=== PATIENT | female | born 1965 | race Caucasian/White ===

== ENCOUNTER 2020-01-11 13:40 | Outpatient (REF) | payer MEDICARE, MEDICAID, SELFPAY ==
[2020-01-11 14:02] LABS: MANUAL DIFF FLAG NO
[2020-01-11 14:09] LABS: Basophils Percent Auto 0.6 % (0-2); Eosinophils Absolute Auto 0.1 X10*3/uL (0.0-0.4); Eosinophils Percent Auto 0.9 % (0-4); Hematocrit 41.1 % (37-47); Hemoglobin 13.6 g/dl (12.0-16.0); Imm Gran Abs Auto 0.03 X10*3/uL (0.00-0.03); Imm Gran Pct Auto 0.4 % (0.0-0.4); Lymphocytes Absolute Auto 2.3 X10*3/uL (1.2-4.9); Lymphocytes Percent Auto 33.8 % (20-40); Mean Corpuscular HGB Conc 33.1 g/dl (31.0-35.0); Mean Corpuscular Volume 90.5 fL (80-98); Mean Platelet Volume 10.4 fL (9.4-12.3); Monocytes Absolute Auto 0.5 X10*3/uL (0.1-1.2); Monocytes Percent Auto 6.7 % (2-11); Neutrophils Absolute Auto 3.9 X10*3/uL (2.0-8.3); Neutrophils Percent Auto 57.6 % (45-73); Platelet Count 167 X10*3/uL (160-400); Red Blood Count 4.54 X10*6/uL (4.20-5.50); Red Cell Distribution Width 11.9 % (11.0-16.0); White Blood Count 6.8 X10*3/uL (4.8-10.8)
[2020-01-11 14:43] LABS: Alanine Aminotransferase 10 U/L (0-31); Albumin Level 4.3 g/dL (3.5-5.0); Alkaline Phosphatase 74 U/L (39-117); Anion Gap 11 (12-20); Aspartate Amino Transferase 13 U/L (5-31); Bilirubin Total 0.3 mg/dL (0.0-1.0); Blood Urea Nitrogen 12 mg/dL (9-16); Calcium 9.7 mg/dL (8.4-10.2); Carbon Dioxide 31 mmol/L (22-29); Chloride 102 mmol/L (96-108); Estimated Glomerular Filt Rate 58; Glucose Random 95 mg/dL (60-115); Potassium 4.9 mmol/l (3.3-5.1); Sodium 139 mmol/L (135-145); Total Protein 6.8 g/dL (6.5-8.0)
== END 2020-01-11 13:41 | disposition home or self-care (01) ==
LOC: HO.LAB 13:40
PROVIDERS: PCP Internal Medicine; Referring Provider Internal Medicine Hypertension Specialist; Visit Provider Internal Medicine Medical Oncology
DX: D69.6 Thrombocytopenia, unspecified (principal); E78.2 Mixed hyperlipidemia; E87.0 Hyperosmolality and hypernatremia; N17.9 Acute kidney failure, unspecified
CPT/HCPCS: 36415; 80053; 85025

== ENCOUNTER 2020-06-15 09:03 | Outpatient (REF) | payer MEDICARE, MEDICAID, SELFPAY ==
[2020-06-15 10:23] LABS: MANUAL DIFF FLAG NO
[2020-06-15 10:30] LABS: Basophils Percent Auto 0.6 % (0-2); Eosinophils Percent Auto 0.7 % (0-4); Hematocrit 42.9 % (37-47); Hemoglobin 13.8 g/dl (12.0-16.0); Imm Gran Abs Auto 0.01 X10*3/uL (0.00-0.03); Imm Gran Pct Auto 0.2 % (0.0-0.4); Lymphocytes Absolute Auto 2.3 X10*3/uL (1.2-4.9); Lymphocytes Percent Auto 42.6 % (20-40); Mean Corpuscular HGB Conc 32.2 g/dl (31.0-35.0); Mean Corpuscular Hemoglobin 29.1 pg (27.0-33.0); Mean Corpuscular Volume 90.5 fL (80-98); Mean Platelet Volume 10.4 fL (9.4-12.3); Monocytes Absolute Auto 0.5 X10*3/uL (0.1-1.2); Monocytes Percent Auto 8.5 % (2-11); Neutrophils Absolute Auto 2.6 X10*3/uL (2.0-8.3); Neutrophils Percent Auto 47.4 % (45-73); Platelet Count 164 X10*3/uL (160-400); Red Blood Count 4.74 X10*6/uL (4.20-5.50); White Blood Count 5.4 X10*3/uL (4.8-10.8)
[2020-06-15 10:56] LABS: Alanine Aminotransferase 17 U/L (0-31); Albumin Level 4.4 g/dL (3.5-5.0); Alkaline Phosphatase 76 U/L (39-117); Anion Gap 12 (12-20); Aspartate Amino Transferase 16 U/L (5-31); Bilirubin Total 0.3 mg/dL (0.0-1.0); Blood Urea Nitrogen 18 mg/dL (9-16); Calcium 9.6 mg/dL (8.4-10.2); Carbon Dioxide 32 mmol/L (22-29); Chloride 104 mmol/L (96-108); Cholesterol 203 mg/dL; Estimated Glomerular Filt Rate 52; Glucose Fasting 96 mg/dL (60-99); HDL Cholesterol 59 mg/dL; LDL Cholesterol Calculated 105 mg/dl; Potassium 4.3 mmol/L (3.3-5.1); Sodium 144 mmol/L (135-145); Total Protein 6.8 g/dL (6.5-8.0); Triglycerides 196 mg/dL
[2020-06-15 11:18] LABS: Free T4 (Free Thyroxine) 0.82 ng/dL (0.71-1.85); Thyroid Stimulating Hormone 0.45 uIU/mL (0.32-4.0); Vitamin D 25-OH Total 39.5 ng/mL (>30)
== END 2020-06-15 09:04 | disposition home or self-care (01) ==
LOC: HO.LAB 09:03
PROVIDERS: Absent Provider Internal Medicine Hypertension Specialist; PCP Internal Medicine; Visit Provider Internal Medicine Medical Oncology
DX: D69.6 Thrombocytopenia, unspecified (principal); E78.2 Mixed hyperlipidemia; E87.0 Hyperosmolality and hypernatremia
CPT/HCPCS: 36415; 80053; 80061; 82306; 84439; 84443; 85025

== ENCOUNTER 2020-12-24 09:05 | Outpatient (REF) | payer MEDICARE, MEDICAID, SELFPAY ==
[2020-12-24 10:37] LABS: Alanine Aminotransferase 11 U/L (0-31); Albumin Level 4.3 g/dL (3.5-5.0); Alkaline Phosphatase 67 U/L (39-117); Anion Gap 13 (12-20); Aspartate Amino Transferase 13 U/L (5-31); Bilirubin Total 0.3 mg/dL (0.0-1.0); Blood Urea Nitrogen 12 mg/dL (9-16); Calcium 9.4 mg/dL (8.4-10.2); Carbon Dioxide 25 mmol/L (22-29); Chloride 105 mmol/L (96-108); Cholesterol 197 mg/dL; Estimated Glomerular Filt Rate 56; Glucose Fasting 107 mg/dL (60-99); HDL Cholesterol 58 mg/dL; LDL Cholesterol Calculated 105 mg/dl; Potassium 4.7 mmol/L (3.3-5.1); Sodium 138 mmol/L (135-145); Total Protein 6.7 g/dL (6.5-8.0); Triglycerides 173 mg/dL
[2020-12-24 10:39] LABS: Free T4 (Free Thyroxine) 0.86 ng/dL (0.71-1.85); Thyroid Stimulating Hormone 0.81 uIU/mL (0.32-4.0)
== END 2020-12-24 09:06 | disposition home or self-care (01) ==
LOC: HO.LAB 09:05
PROVIDERS: PCP Internal Medicine; Visit Provider Internal Medicine Medical Oncology
DX: D69.6 Thrombocytopenia, unspecified (principal); E78.2 Mixed hyperlipidemia; E66.09 Other obesity due to excess calories
CPT/HCPCS: 36415; 80053; 80061; 84439; 84443; 85025

== ENCOUNTER 2021-02-24 07:37 | Outpatient (REF) | payer MEDICARE, MEDICAID, SELFPAY ==
--- NOTE | ~2021-02-24 | XR_ITS ---
EXAMINATION: PELVIS AND RIGHT HIP X-RAY CLINICAL INFORMATION: Pain in right hip COMPARISON: None TECHNIQUE: One view of the pelvis and 2 views of the right hip FINDINGS: There is bilateral hip arthritis with joint space narrowing and osteophyte formation, right greater than left. No fracture, dislocation or bone lesion is seen. Bones of the pelvis are unremarkable. There are degenerative changes of visualized lower lumbar spine. Soft tissues are unremarkable. XR/XR hip RT min 2V IMPRESSION: Bilateral hip arthritis, right greater than left.
--- NOTE | ~2021-02-24 | XR_ITS ---
EXAMINATION: PELVIS AND RIGHT HIP X-RAY CLINICAL INFORMATION: Pain in right hip COMPARISON: None TECHNIQUE: One view of the pelvis and 2 views of the right hip FINDINGS: There is bilateral hip arthritis with joint space narrowing and osteophyte formation, right greater than left. No fracture, dislocation or bone lesion is seen. Bones of the pelvis are unremarkable. There are degenerative changes of visualized lower lumbar spine. Soft tissues are unremarkable. XR/XR pelvis 1-2V IMPRESSION: Bilateral hip arthritis, right greater than left.
== END 2021-02-24 07:38 | disposition home or self-care (01) ==
LOC: HO.HOSX 07:37
PROVIDERS: Visit Provider Physician Assistant
DX: M70.61 Trochanteric bursitis, right hip (principal); M53.3 Sacrococcygeal disorders, not elsewhere classified
CPT/HCPCS: 20610; 72170; 73502; 99202; J1040

== ENCOUNTER 2021-05-23 07:55 | Outpatient (REF) | payer MEDICARE, MEDICAID, SELFPAY ==
[2021-05-23 08:29] LABS: MANUAL DIFF FLAG NO
[2021-05-23 08:58] LABS: Basophils Percent Auto 0.6 % (0-2); Eosinophils Absolute Auto 0.1 X10*3/uL (0.0-0.4); Eosinophils Percent Auto 1.6 % (0-4); Hematocrit 39.8 % (37.0-47.0); Hemoglobin 12.9 g/dl (12.0-16.0); Imm Gran Abs Auto 0.01 X10*3/uL (0.00-0.03); Imm Gran Pct Auto 0.2 % (0.0-0.4); Lymphocytes Absolute Auto 1.8 X10*3/uL (1.2-4.9); Mean Corpuscular HGB Conc 32.4 g/dl (31.0-35.0); Mean Corpuscular Hemoglobin 28.9 pg (27.0-33.0); Mean Corpuscular Volume 89.2 fL (80.0-98.0); Mean Platelet Volume 9.9 fL (9.4-12.3); Monocytes Absolute Auto 0.5 X10*3/uL (0.1-1.2); Monocytes Percent Auto 9.3 % (2-11); Neutrophils Absolute Auto 2.8 x10*3/uL (2.0-8.3); Neutrophils Percent Auto 54.3 % (45-73); Platelet Count 174 X10*3/uL (160-400); Red Blood Count 4.46 X10*6/uL (4.20-5.50); Red Cell Distribution Width 13.2 % (11.0-16.0); White Blood Count 5.1 X10*3/uL (4.8-10.8)
[2021-05-23 09:35] LABS: Alanine Aminotransferase 13 U/L (0-31); Albumin Level 4.1 g/dL (3.5-5.0); Alkaline Phosphatase 71 U/L (39-117); Anion Gap 12 (12-20); Aspartate Amino Transferase 14 U/L (5-31); Bilirubin Total 0.3 mg/dL (0.0-1.0); Blood Urea Nitrogen 12 mg/dL (9-16); Calcium 9.7 mg/dL (8.4-10.2); Carbon Dioxide 31 mmol/L (22-29); Chloride 103 mmol/L (96-108); Cholesterol 197 mg/dL; Estimated Glomerular Filt Rate 54; Glucose Fasting 104 mg/dL (60-99); HDL Cholesterol 53 mg/dL; LDL Cholesterol Calculated 90 mg/dl; Potassium 4.7 mmol/L (3.3-5.1); Sodium 141 mmol/L (135-145); Total Protein 6.7 g/dL (6.5-8.0); Triglycerides 271 mg/dL
[2021-05-23 09:36] LABS: Valproate 71.5 mcg/mL (50.0-100.0)
[2021-05-23 09:58] LABS: Vitamin D 25-OH Total 26.1 ng/mL (>30)
[2021-05-23 09:59] LABS: Free T4 (Free Thyroxine) 0.77 ng/dL (0.71-1.85); Thyroid Stimulating Hormone 1.28 uIU/mL (0.32-4.0)
== END 2021-05-23 07:56 | disposition home or self-care (01) ==
LOC: HO.LAB 07:55
PROVIDERS: Absent Provider Internal Medicine Hypertension Specialist; PCP Internal Medicine; Visit Provider Internal Medicine
DX: E03.9 Hypothyroidism, unspecified (principal); G40.909 Epilepsy, unspecified, not intractable, without status epilepticus; E55.9 Vitamin D deficiency, unspecified
CPT/HCPCS: 36415; 80053; 80061; 80164; 82306; 84439; 84443; 85025

== ENCOUNTER 2021-11-30 08:39 | Outpatient (REF) | payer MEDICARE, MEDICAID, SELFPAY ==
[2021-11-30 08:52] LABS: MANUAL DIFF FLAG NO
[2021-11-30 09:34] LABS: Basophils Percent Auto 0.6 % (0-2); Eosinophils Absolute Auto 0.1 X10*3/uL (0.0-0.4); Eosinophils Percent Auto 2.3 % (0-4); Hematocrit 40.7 % (37.0-47.0); Hemoglobin 13.5 g/dl (12.0-16.0); Imm Gran Abs Auto 0.01 X10*3/uL (0.00-0.03); Imm Gran Pct Auto 0.2 % (0.0-0.4); Lymphocytes Absolute Auto 2.3 X10*3/uL (1.2-4.9); Lymphocytes Percent Auto 44.7 % (20-40); Mean Corpuscular HGB Conc 33.2 g/dl (31.0-35.0); Mean Corpuscular Hemoglobin 30.3 pg (27.0-33.0); Mean Corpuscular Volume 91.5 fL (80.0-98.0); Mean Platelet Volume 10.3 fL (9.4-12.3); Monocytes Absolute Auto 0.5 X10*3/uL (0.1-1.2); Monocytes Percent Auto 8.6 % (2-11); Neutrophils Absolute Auto 2.3 x10*3/uL (2.0-8.3); Neutrophils Percent Auto 43.6 % (45-73); Platelet Count 166 X10*3/uL (160-400); Red Blood Count 4.45 X10*6/uL (4.20-5.50); Red Cell Distribution Width 12.3 % (11.0-16.0); White Blood Count 5.2 X10*3/uL (4.8-10.8)
[2021-11-30 10:02] LABS: Alanine Aminotransferase 12 U/L (0-31); Albumin Level 4.2 g/dL (3.5-5.0); Alkaline Phosphatase 65 U/L (39-117); Anion Gap 15 (12-20); Aspartate Amino Transferase 14 U/L (5-31); Bilirubin Total 0.4 mg/dL (0.0-1.0); Blood Urea Nitrogen 18 mg/dL (9-16); Calcium 9.3 mg/dL (8.4-10.2); Carbon Dioxide 29 mmol/L (22-29); Chloride 106 mmol/L (96-108); Cholesterol 221 mg/dL; Estimated Glomerular Filt Rate 49; Glucose Fasting 101 mg/dL (60-99); HDL Cholesterol 50 mg/dL; LDL Cholesterol Calculated 106 mg/dl; Potassium 4.4 mmol/L (3.3-5.1); Sodium 146 mmol/L (135-145); Total Protein 6.8 g/dL (6.5-8.0); Triglycerides 327 mg/dL
[2021-11-30 10:25] LABS: Free T4 (Free Thyroxine) 0.83 ng/dL (0.71-1.85); Thyroid Stimulating Hormone 1.32 uIU/mL (0.32-4.0)
[2021-11-30 10:33] LABS: Valproate 58.9 mcg/mL (50.0-100.0)
== END 2021-11-30 08:40 | disposition home or self-care (01) ==
LOC: HO.LAB 08:39
PROVIDERS: Absent Provider Registered Nurse; PCP Internal Medicine; Visit Provider Internal Medicine
DX: E03.9 Hypothyroidism, unspecified (principal); G40.909 Epilepsy, unspecified, not intractable, without status epilepticus; E78.5 Hyperlipidemia, unspecified
CPT/HCPCS: 36415; 80053; 80061; 80164; 84439; 84443; 85025

== ENCOUNTER 2022-01-06 08:51 | Outpatient (REF) | payer MEDICARE, SELFPAY ==
[2022-01-06 10:46] LABS: Cholesterol 205 mg/dL; HDL Cholesterol 46 mg/dL; LDL Cholesterol Calculated 93 mg/dl; Triglycerides 332 mg/dL
== END 2022-01-06 08:52 | disposition home or self-care (01) ==
LOC: HO.LAB 08:51
PROVIDERS: PCP Internal Medicine; Visit Provider Internal Medicine
DX: E78.00 Pure hypercholesterolemia, unspecified (principal)
CPT/HCPCS: 36415; 80061

== ENCOUNTER 2022-03-24 09:24 | Outpatient (REF) | payer MEDICARE, SELFPAY ==
[2022-03-24 10:37] LABS: Estimated Average Glucose 111 mg/dL; Hemoglobin A1c % 5.5 %
[2022-03-24 10:40] LABS: Cholesterol 203 mg/dL; HDL Cholesterol 55 mg/dL; LDL Cholesterol Calculated 103 mg/dl; Triglycerides 229 mg/dL
== END 2022-03-24 09:25 | disposition home or self-care (01) ==
LOC: HO.LAB 09:24
PROVIDERS: PCP Internal Medicine; Visit Provider Registered Nurse
DX: F06.34 Mood disorder due to known physiological condition with mixed features (principal); F31.76 Bipolar disorder, in full remission, most recent episode depressed; Z79.899 Other long term (current) drug therapy
CPT/HCPCS: 36415; 80061; 83036

== ENCOUNTER 2022-11-10 09:45 | Outpatient (REF) | payer MEDICARE, SELFPAY ==
[2022-11-10 10:07] LABS: MANUAL DIFF FLAG NO
[2022-11-10 10:52] LABS: Basophils Absolute Auto 0.1 X10*3/uL (0.0-0.2); Basophils Percent Auto 0.9 % (0-2); Eosinophils Absolute Auto 0.1 X10*3/uL (0.0-0.4); Eosinophils Percent Auto 1.4 % (0-4); Hematocrit 42.3 % (37.0-47.0); Hemoglobin 13.6 g/dl (12.0-16.0); Imm Gran Abs Auto 0.03 X10*3/uL (0.00-0.03); Imm Gran Pct Auto 0.5 % (0.0-0.4); Lymphocytes Absolute Auto 2.1 X10*3/uL (1.2-4.9); Lymphocytes Percent Auto 37.6 % (20-40); Mean Corpuscular HGB Conc 32.2 g/dl (31.0-35.0); Mean Corpuscular Hemoglobin 29.2 pg (27.0-33.0); Mean Platelet Volume 10.4 fL (9.4-12.3); Monocytes Absolute Auto 0.5 X10*3/uL (0.1-1.2); Monocytes Percent Auto 8.4 % (2-11); Neutrophils Absolute Auto 2.9 x10*3/uL (2.0-8.3); Neutrophils Percent Auto 51.2 % (45-73); Platelet Count 236 X10*3/uL (160-400); Red Blood Count 4.65 X10*6/uL (4.20-5.50); Red Cell Distribution Width 12.2 % (11.0-16.0); White Blood Count 5.6 X10*3/uL (4.8-10.8)
[2022-11-10 11:29] LABS: Valproate 56.1 mcg/mL (50.0-100.0)
[2022-11-10 12:05] LABS: Alanine Aminotransferase 11 U/L (0-31); Albumin Level 4.3 g/dL (3.5-5.0); Alkaline Phosphatase 74 U/L (39-117); Anion Gap 17 (12-20); Aspartate Amino Transferase 13 U/L (5-31); Bilirubin Total 0.3 mg/dL (0.0-1.0); Blood Urea Nitrogen 15 mg/dL (9-16); Calcium 9.7 mg/dL (8.4-10.2); Carbon Dioxide 23 mmol/L (22-29); Chloride 106 mmol/L (96-108); Cholesterol 204 mg/dL; Estimated Glomerular Filt Rate 53; Glucose Fasting 99 mg/dL (60-99); HDL Cholesterol 50 mg/dL; LDL Cholesterol Calculated 108 mg/dl; Potassium 4.5 mmol/L (3.3-5.1); Sodium 141 mmol/L (135-145); Total Protein 7.3 g/dL (6.5-8.0); Triglycerides 231 mg/dL
[2022-11-10 12:08] LABS: Free T4 (Free Thyroxine) 0.72 ng/dL (0.71-1.85); Thyroid Stimulating Hormone 1.05 uIU/mL (0.32-4.0)
== END 2022-11-10 09:46 | disposition home or self-care (01) ==
LOC: HO.LAB 09:45
PROVIDERS: PCP Internal Medicine; Visit Provider Internal Medicine
DX: E78.00 Pure hypercholesterolemia, unspecified (principal); E03.9 Hypothyroidism, unspecified
CPT/HCPCS: 36415; 80053; 80061; 80164; 84439; 84443; 85025

== ENCOUNTER 2023-02-21 10:55 | Outpatient (REF) | payer MEDICARE, SELFPAY ==
[2023-02-21 11:41] LABS: Influenza A PCR NEGATIVE (Negative); Influenza B PCR NEGATIVE (Negative); Resp Syncy Virus RNA Qual PCR POSITIVE (Negative); SARS COV2 PCR INHOUSE NEGATIVE (Negative)
== END 2023-02-21 10:56 | disposition home or self-care (01) ==
LOC: HO.LNP 10:55
PROVIDERS: Visit Provider Internal Medicine
DX: Z11.52 Encounter for screening for COVID-19 (principal); Z20.822 Contact with and (suspected) exposure to COVID-19; J02.9 Acute pharyngitis, unspecified
CPT/HCPCS: 0241U

== ENCOUNTER 2023-04-05 07:16 | Day surgery (SDC) | payer MEDICARE, SELFPAY ==
[2023-04-03 10:15] VITALS: BMI 35.7
[2023-04-03 10:32] VITALS: BMI 35.7
--- NOTE | 2023-04-04 11:10 | P.CONAN_ITS ---
Documented by User: Doris Wright NP 04/04/23 11:11 HPI - Anesthesia Eval Consult details Narrative: 57yo F for Colonoscopy PMFSH Active Problems Active Problems: All Active Problems (Updated 04/03/23 @ 10:32 by Susy Maddox, LAM) Sacroiliac joint pain (Acute) Trochanteric bursitis of right hip (Acute) Past Medical History Medical History (Updated 04/03/23 @ 10:32 by Susy Maddox, LAM) Hyponatremia Seizures Bipolar disorder Hypothyroid Elevated cholesterol Cerebral aneurysm Surgical History Surgical History (Updated 04/05/23 @ 08:01 by Ayanna Kasper, LAM) Hx of tracheostomy Hx of brain surgery Hx of tubal ligation History of left mastoidectomy H/O colonoscopy Social History Social History (Updated 04/03/23 @ 10:15 by Susy Maddox RN) Household Members Other:: lives with the grafter [employer] [facility] caregiver Are you a primary health and social care teacher to a significant other at home: No Do you presently have visiting nurse or other home services: Yes ([employer] [facility]) Patient Tobacco Use Status: Former Tobacco user Tobacco use type: Cigarette Advance Directives Date on File: 11/06/11 Meds Allergies Allergy/AdvReac Type Severity Reaction Status Date / Time meropenem [From MERREM] Allergy Unknown UNKNOWN Verified 02/24/21 08:44 Penicillins [PENICILLINS] Allergy Unknown UNKNOWN Verified 02/24/21 08:44 Sulfa (Sulfonamide Allergy Unknown UNKNOWN Verified 02/24/21 08:44 Antibiotics) [SULFA(SULFONAMIDE ANTIBIOTICS)] SHELLFISH Allergy Unknown UNKNOWN Uncoded 12/24/19 18:06 Home Medications Medication Instructions Recorded Confirmed Last Taken Type divalproex 250 mg tablet,delayed 250 mg PO TID 04/03/23 04/03/23 04/05/23 History release levothyroxine 50 mcg tablet 50 mcg PO DAILY 04/03/23 04/03/23 04/05/23 History lovastatin 20 mg tablet 20 mg PO DAILY 04/03/23 04/03/23 Unknown History quetiapine 100 mg tablet 100 mg PO QAM 04/03/23 04/03/23 04/05/23 History quetiapine 400 mg tablet 400 mg PO BEDTIME 04/03/23 04/03/23 Unknown History Exam Height,Weight and Vital Signs: Height 5 ft 1.5 in Weight 87.09 kg Pertinent Lab Results Pertinent Lab Results: Laboratory Tests 11/10/22 10:06 WBC 5.6 Hgb 13.6 Hct 42.3 Plt Count 236 D Sodium 141 Potassium 4.5 Chloride 106 Carbon Dioxide 23 BUN 15 Creatinine 1.07 Assessment and Plan Assessment Anesthesia Assessment: Chart Reviewed Documented by User: Ady Gallegos MD 04/05/23 08:26 PMF Past Medical History Medical History (Updated 04/03/23 @ 10:32 by Susy Maddox RN) Hyponatremia Seizures Bipolar disorder Hypothyroid Elevated cholesterol Cerebral aneurysm Family History Family history of problems with anesthesia: No Surgical History Surgical History (Updated 04/05/23 @ 08:01 by Ayanna Kasper RN) Hx of tracheostomy Hx of brain surgery Hx of tubal ligation History of left mastoidectomy H/O colonoscopy History of Problems with Anesthesia: No Social History Social History (Updated 04/03/23 @ 10:15 by Susy Maddox RN) Household Members Other:: lives with Diego [facility] caregiver Are you a primary health and social care teacher to a significant other at home: No Do you presently have visiting nurse or other [facility] services[facility] Patient Tobacco Use Status: Former Tobacco user Tobacco use type: Cigarette Advance Directives Date on File: 11/06/11 Meds Allergies Allergy/AdvReac Type Severity Reaction Status Date / Time meropenem [From MERREM] Allergy Unknown UNKNOWN Verified 02/24/21 08:44 Penicillins [PENICILLINS] Allergy Unknown UNKNOWN Verified 02/24/21 08:44 Sulfa (Sulfonamide Allergy Unknown UNKNOWN Verified 02/24/21 08:44 Antibiotics) [SULFA(SULFONAMIDE ANTIBIOTICS)] SHELLFISH Allergy Unknown UNKNOWN Uncoded 12/24/19 18:06 Home Medications Medication Instructions Recorded Confirmed Last Taken Type divalproex 250 mg tablet,delayed 250 mg PO TID 04/03/23 04/03/23 04/05/23 History release levothyroxine 50 mcg tablet 50 mcg PO DAILY 04/03/23 04/03/23 04/05/23 History lovastatin 20 mg tablet 20 mg PO DAILY 04/03/23 04/03/23 Unknown History quetiapine 100 mg tablet 100 mg PO QAM 04/03/23 04/03/23 04/05/23 History quetiapine 400 mg tablet 400 mg PO BEDTIME 04/03/23 04/03/23 Unknown History Exam Airway Mallampati Class: II TM Dist: <=3cm Neck ROM: Full Heart: ok Lungs: ok Assessment and Plan Assessment Anesthesia Assessment: Anesthesia Plan Discussed Final Anesthetic Review Family History of Problems with Anesthesia: No History of Problems with Anesthesia: No NPO: Yes ASA Class: III Final Preanesthetic Review: No Changes in Pt Med Stat, Meds/Allgs Chart Reviewed, Consent Obtained/Reviewed and Anes Risks/Benef Reviewed Patient Risk: Intermediate Procedure Risk: Low Anesthetic Plan Anesthetic Plan: MAC: and Agree w/ Assess. and Plan Disposition: Standard PACU
[2023-04-05 07:53] VITALS: BMI 35.8
[2023-04-05 07:54] VITALS: BP 129/83; PULSE 92; RESP 19; TEMP 36.8; O2SAT 97
[2023-04-05] MEDS: Lactated Ringers 1,000 ML 100 ML IVCONT (08:10)
--- NOTE | 2023-04-05 08:26 | HO.ANESPROP2 ---
[facility]LY [facility], LATER [facility] Active Problems Active Problems: All Active Problems Sacroiliac joint pain (Acute) Trochanteric bursitis of right hip (Acute) Past Medical History Medical History (Updated 04/03/23 @ 10:32 by Susy Maddox RN) Hyponatremia Seizures Bipolar disorder Hypothyroid Elevated cholesterol Cerebral aneurysm Family History Family history of problems with anesthesia: No Surgical History Surgical History (Updated 04/05/23 @ 08:01 by Ayanna Kasper RN) Hx of tracheostomy Hx of brain surgery Hx of tubal ligation History of left mastoidectomy H/O colonoscopy History of Problems with Anesthesia: No Social History Social History (Updated 04/03/23 @ 10:15 by Susy Madodx RN) Household Members Other:: lives with [facility] caregiver Are you a primary director long term care to a significant other at home: No Do you presently have visiting nurse or other home services: Yes ([facility]) Patient Tobacco Use Status: Former Tobacco user Tobacco use type: Cigarette Advance Directives Date on File: 11/06/11 Meds Allergies Allergy/AdvReac Type Severity Reaction Status Date / Time meropenem [From MERREM] Allergy Unknown UNKNOWN Verified 02/24/21 08:44 Penicillins [PENICILLINS] Allergy Unknown UNKNOWN Verified 02/24/21 08:44 Sulfa (Sulfonamide Allergy Unknown UNKNOWN Verified 02/24/21 08:44 Antibiotics) [SULFA(SULFONAMIDE ANTIBIOTICS)] SHELLFISH Allergy Unknown UNKNOWN Uncoded 12/24/19 18:06 Active Medications: Current Medications Lactated Ringer's (Lr) 1,000 mls @ 100 mls/hr IVCONT .Q10H KATELIN Last Admin: 04/05/23 08:10 Dose: 100 mls/hr Sodium Biphosphate/Sodium Phosphate (Sodium Phosphate,[place]-Dibasic 133 Ml Enema) 133 ml UT ONCE PRN PRN Reason: Poor Colonoscopy Prep Results Home Medications Medication Instructions Recorded Confirmed Last Taken Type divalproex 250 mg tablet,delayed 250 mg PO TID 04/03/23 04/03/23 04/05/23 History release levothyroxine 50 mcg tablet 50 mcg PO DAILY 04/03/23 04/03/23 04/05/23 History lovastatin 20 mg tablet 20 mg PO DAILY 04/03/23 04/03/23 Unknown History quetiapine 100 mg tablet 100 mg PO QAM 04/03/23 04/03/23 04/05/23 History quetiapine 400 mg tablet 400 mg PO BEDTIME 04/03/23 04/03/23 Unknown History Exam Height,Weight and Vital Signs: Height 5 ft 1.5 in Weight 87.453 kg Last Vital Signs Temp 98.2 F 04/05/23 07:54 Pulse 92 04/05/23 07:54 Resp 19 04/05/23 07:54 BP 129/83 04/05/23 07:54 Pulse Ox 97 04/05/23 07:54 O2 Del Method Room Air 04/05/23 07:54 Assessment and Plan Final Anesthetic Review Family History of Problems with Anesthesia: No History of Problems with Anesthesia: No
--- NOTE | 2023-04-05 09:30 | P.BOP_ITS ---
Brief Operative Note Date of Service: 04/05/23 Pre-op diagnosis: Screening Post-op diagnosis: other (Diverticulosis) Procedure: Colonoscopy to the cecum and TI Surgeon: Chico Segundo MD Anesthesia: MAC Was an Lozenge Maker Helper used for this Procedure?: No Estimated blood loss (mL): 0 Pathology: none sent Condition: stable Disposition: PACU
[2023-04-05 09:32] VITALS: BP 150/81; PULSE 82; RESP 18; TEMP 36.6; O2SAT 98
[2023-04-05 09:47] VITALS: BP 129/78; PULSE 80; RESP 18; TEMP 36.6; O2SAT 99
[2023-04-05] MEDS: Acetaminophen 325 MG TABLET 650 MG PO (09:51)
--- NOTE | 2023-04-05 10:07 | OP_ITS ---
DATE OF SERVICE: 04/05/2023 SURGEON: Chico Segundo MD INDICATIONS: The patient presents for evaluation of colorectal cancer screening and personal history of tubular adenoma of the colon. Full consent has been obtained from her for this, including risks of bleeding and perforation. PREOPERATIVE DIAGNOSIS: POSTOPERATIVE DIAGNOSIS: PROCEDURE PERFORMED: Colonoscopy to cecum and terminal ileum. ESTIMATED BLOOD LOSS: COMPLICATIONS: ANESTHESIA: Medication used, monitored anesthesia care. ASSISTANTS: SPECIMENS: PREOPERATIVE DIAGNOSES: Colorectal cancer screening and personal history of tubular adenoma of the colon. POSTOPERATIVE DIAGNOSES: Colorectal cancer screening and personal history of tubular adenoma of the colon, diverticulosis, internal hemorrhoids. DESCRIPTION OF PROCEDURE: The patient was placed in the left lateral decubitus position. The digital rectal exam revealed no abnormalities. The Olympus video pediatric colonoscope was entered into the rectum and advanced to the cecum with the assistance of abdominal wall pressure. Once in the cecum, I did identify normal-appearing cecal pouch with appendiceal orifice and a normal-appearing ileocecal valve. The terminal ileum was cannulated and appeared normal. The scope was withdrawn back in the colon. The entire cecum and ileocecal valve appeared normal. The scope was slowly withdrawn assessing all mucosal surfaces carefully. For the most part, preparation was very good, but there was some areas of liquid stool that had to be suctioned and irrigated away as best as possible. I did not visualize any sign of polyps, colitis, nor angiodysplasia. There was a mild amount of sigmoid diverticulosis. In the rectum, the scope was retroflexed visualizing internal hemorrhoids, but no other pathology. The rectal mucosa appeared normal. The scope was straightened and withdrawn from the patient. She tolerated the procedure well and was returned to the recovery area in stable condition. IMPRESSION: 1. Mild diverticulosis. 2. Internal hemorrhoids. PLAN: I would recommend a repeat colonoscopy in 5 years for further screening and surveillance. She will otherwise see me on a p.r.n. basis. This has been discussed with her location director, Angie. MD RADHA Avila/STANISLAW / [phone]
== END 2023-04-05 10:30 | disposition home or self-care (01) ==
PROVIDERS: PCP Internal Medicine; Visit Provider Internal Medicine
PROC: 0DJD8ZZ Inspection of Lower Intestinal Tract, Via Natural or Artificial Opening Endoscopic (ICD-10-PCS; CPT 45378; principal; 2023-04-05 08:30)
DX: Z12.11 Encounter for screening for malignant neoplasm of colon (principal); K57.30 Diverticulosis of large intestine without perforation or abscess without bleeding; K64.8 Other hemorrhoids; Z86.010 Personal history of colon polyps; E78.5 Hyperlipidemia, unspecified; Z87.891 Personal history of nicotine dependence; Z79.899 Other long term (current) drug therapy
CPT/HCPCS: G0105; J2704; J3010

== ENCOUNTER 2023-04-05 07:27 | Outpatient (REF) | payer MEDICARE, SELFPAY ==
[2023-04-05 07:58] LABS: Anion Gap 14 (12-20); Blood Urea Nitrogen 13 mg/dL (9-16); Calcium 9.4 mg/dL (8.4-10.2); Carbon Dioxide 26 mmol/L (22-29); Chloride 99 mmol/L (96-108); Estimated Glomerular Filt Rate > 60; Glucose Random 113 mg/dL (60-115); Potassium 4.3 mmol/L (3.3-5.1); Sodium 135 mmol/L (135-145)
== END 2023-04-05 07:28 | disposition home or self-care (01) ==
LOC: HO.LAB 07:27
PROVIDERS: PCP Internal Medicine; Visit Provider Internal Medicine
DX: E87.1 Hypo-osmolality and hyponatremia (principal); N18.9 Chronic kidney disease, unspecified
CPT/HCPCS: 36415; 80048

== ENCOUNTER 2023-04-09 16:40 | Outpatient (REF) | payer MEDICARE, SELFPAY ==
[2023-04-09 16:49] LABS: MANUAL DIFF FLAG NO
[2023-04-09 17:06] LABS: Basophils Percent Auto 0.4 % (0-2); Eosinophils Absolute Auto 0.3 X10*3/uL (0.0-0.4); Eosinophils Percent Auto 4.2 % (0-4); Hematocrit 38.7 % (37.0-47.0); Hemoglobin 12.6 g/dl (12.0-16.0); Imm Gran Abs Auto 0.02 X10*3/uL (0.00-0.03); Imm Gran Pct Auto 0.3 % (0.0-0.4); Lymphocytes Absolute Auto 2.1 X10*3/uL (1.2-4.9); Lymphocytes Percent Auto 31.1 % (20-40); Mean Corpuscular HGB Conc 32.6 g/dl (31.0-35.0); Mean Corpuscular Hemoglobin 29.6 pg (27.0-33.0); Mean Corpuscular Volume 90.8 fL (80.0-98.0); Mean Platelet Volume 9.5 fL (9.4-12.3); Monocytes Absolute Auto 0.6 X10*3/uL (0.1-1.2); Monocytes Percent Auto 9.1 % (2-11); Neutrophils Absolute Auto 3.8 x10*3/uL (2.0-8.3); Neutrophils Percent Auto 54.9 % (45-73); Platelet Count 212 X10*3/uL (160-400); Red Blood Count 4.26 X10*6/uL (4.20-5.50); White Blood Count 6.8 X10*3/uL (4.8-10.8)
[2023-04-09 17:32] LABS: Valproate 63.5 mcg/mL (50.0-100.0)
[2023-04-09 17:37] LABS: Alanine Aminotransferase 16 U/L (0-31); Albumin Level 4.3 g/dL (3.5-5.0); Alkaline Phosphatase 71 U/L (39-117); Anion Gap 12 (12-20); Aspartate Amino Transferase 18 U/L (5-31); Bilirubin Total 0.2 mg/dL (0.0-1.0); Blood Urea Nitrogen 23 mg/dL (9-16); Calcium 9.8 mg/dL (8.4-10.2); Carbon Dioxide 31 mmol/L (22-29); Chloride 110 mmol/L (96-108); Estimated Glomerular Filt Rate 57; Glucose Random 99 mg/dL (60-115); Potassium 4.7 mmol/L (3.3-5.1); Sodium 148 mmol/L (135-145); Total Protein 7.3 g/dL (6.5-8.0)
== END 2023-04-09 16:41 | disposition home or self-care (01) ==
LOC: HO.LAB 16:40
PROVIDERS: PCP Internal Medicine; Visit Provider Internal Medicine
DX: R21 Rash and other nonspecific skin eruption (principal)
CPT/HCPCS: 36415; 80053; 80164; 85025

== ENCOUNTER 2023-05-11 07:41 | Outpatient (REF) | payer MEDICARE, SELFPAY ==
[2023-05-11 09:28] LABS: Estimated Average Glucose 114 mg/dL; Hemoglobin A1c % 5.6 % (<6.0)
[2023-05-11 10:18] LABS: Cholesterol 217 mg/dL (<200); HDL Cholesterol 51 mg/dL (>40); LDL Cholesterol Calculated 94 mg/dL (<100); Triglycerides 361 mg/dL (<150)
== END 2023-05-11 07:42 | disposition home or self-care (01) ==
LOC: HO.LAB 07:41
PROVIDERS: Visit Provider Registered Nurse
DX: F06.34 Mood disorder due to known physiological condition with mixed features (principal); F31.76 Bipolar disorder, in full remission, most recent episode depressed; Z79.899 Other long term (current) drug therapy
CPT/HCPCS: 36415; 80061; 83036

== ENCOUNTER 2023-10-30 08:22 | Outpatient (REF) | payer MEDICARE, SELFPAY ==
[2023-10-30 10:13] LABS: Anion Gap 18 (12-20); Blood Urea Nitrogen 33 mg/dL (9-16); Calcium 9.8 mg/dL (8.4-10.2); Carbon Dioxide 29 mmol/L (22-29); Chloride 128 mmol/L (96-108); Estimated Glomerular Filt Rate 33; Glucose Random 155 mg/dL (60-115); Potassium 4.2 mmol/L (3.3-5.1); Sodium 171 mmol/L (135-145)
== END 2023-10-30 08:23 | disposition home or self-care (01) ==
LOC: HO.LAB 08:22
PROVIDERS: PCP Internal Medicine; Visit Provider Internal Medicine
DX: Z13.89 Encounter for screening for other disorder (principal)
CPT/HCPCS: 36415; 80048

== ENCOUNTER 2023-10-30 10:57 | Inpatient (IN) | payer MEDICARE, SELFPAY ==
[2023-10-30 10:58] VITALS: BP 123/84; PULSE 114; RESP 16; TEMP 36.6; O2SAT 93; BMI 35.9
--- NOTE | 2023-10-30 10:58 | ED.GENADULT ---
HPI - General Adult General Chief complaint: Recheck/Abnormal Lab/Rx Stated complaint: High sodium Time Seen by Provider: 10/30/23 13:54 Source: patient and other ([employer] Specialist at the bedside) History of Present Illness ED Provider: REFUGIO signature HPI narrative: Patient was called by her PCP after routine labs were drawn this morning checking chemistry and Depakote level she was told to come in for a high sodium. This appears to have been 171 on outpatient labs. Mild JORGE was also seen. Patient reports mild fatigue but no other acute symptoms. She specifically denies headache, nausea vomiting diarrhea. She does acknowledge not drinking much water over the past few days to weeks and the tie buyer says that she is never drinking enough water. No abdominal pain no edema no skin changes Related Data Home Medications ?Medication ?Instructions ?Recorded ?Confirmed divalproex 250 mg tablet,delayed 250 mg PO DAILY 04/03/23 10/30/23 release levothyroxine 50 mcg tablet 50 mcg PO DAILY@0600 04/03/23 10/30/23 lovastatin 20 mg tablet 20 mg PO DAILY 04/03/23 10/30/23 acetaminophen 325 mg tablet 650 mg PO Q6H PRN Pain 10/30/23 10/30/23 cholecalciferol (vitamin D3) 50 50 mcg PO DAILY 10/30/23 10/30/23 mcg (2,000 unit) tablet (Vitamin D3) divalproex 250 mg tablet,delayed 500 mg PO BEDTIME 10/30/23 10/30/23 release quetiapine 200 mg tablet 200 mg PO BEDTIME 10/30/23 10/30/23 quetiapine 300 mg tablet,extended 300 mg PO BEDTIME 10/30/23 10/30/23 release 24 hr Allergies Allergy/AdvReac Type Severity Reaction Status Date / Time meropenem [From MERREM] Allergy Unknown UNKNOWN Verified 10/30/23 10:59 Penicillins [PENICILLINS] Allergy Unknown UNKNOWN Verified 10/30/23 10:59 Sulfa (Sulfonamide Allergy Unknown UNKNOWN Verified 10/30/23 10:59 Antibiotics) [SULFA(SULFONAMIDE ANTIBIOTICS)] SHELLFISH Allergy Unknown UNKNOWN Uncoded 10/30/23 10:59 PMFSH Past Medical History Medical History (Updated 10/30/23 @ 14:12 by Asa Mathur MD) Hyponatremia Seizures Bipolar disorder Hypothyroid Elevated cholesterol Cerebral aneurysm Surgical History (Updated 12/29/23 @ 08:01 by Ayanna Kasper RN) Hx of tracheostomy Hx of brain surgery Hx of tubal ligation History of left mastoidectomy H/O colonoscopy Social History Social History (Updated 04/03/23 @ 10:15 by Susy Maddox RN) Household Members: Caregiver Household Members Other:: lives with [facility] caregiver Housing: House Are you a primary care program director to a significant other at home: No Do you presently have visiting nurse or other home services: Yes Patient Tobacco Use Status: Former Tobacco user Tobacco use type: Cigarette Advance Directives Date on File: 11/06/11 service: No Physical Exam ED Vital Signs: Vital Signs - 24 hr 10/30/23 10:58 10/30/23 15:14 Temperature 98 F 98.3 F Pulse Rate 114 H 92 Respiratory Rate 16 16 Blood Pressure 123/84 131/78 Pulse Oximetry 93 95 Oxygen Delivery Method Room Air BMI result Body Mass Index 35.9 Const Other: EXAM: Gen: Alert, awake, well appearing, well hydrated. Head: Atraumatic Eyes: Anicteric, Normal conjunctiva. ENT: Mildly dry oral mucosa, no pallor. ? Neck: Supple. Respiratory: Breathing comfortably, No distress.Clear to auscultation bilaterally, symmetric chest expansion, No wheeze, rales, ronchi. Cardiovascular: Regular rate and rhythm. No murmurs or rub. Well perfused periphery, warm extremities. No edema. ? Abdominal: Soft, no objective distension. No palpable masses or obvious organomegaly. No focal tenderness, no guarding, no rebound tenderness or other peritoneal findings. : No flank tenderness. Neuro: Alert. Gross movement of all extremities intact. ? Vital signs: See flowsheet Course Course Course Narrative: This is a rapid medical exam performed by Erick Galindo NP: Additional HPI, ROS, PE not included below will be deferred to primary provider. Patient is a 57-year-old female presenting to the ED from Dr. Squires's office for sodium of 171 on labs drawn this am. Was having routing labs drawn as she is on depakote. She denies any complaints. Plan: repeat labs Medications Administered Generic Name Dose Route Start Last Admin Trade Name Freq PRN Reason Stop Dose Admin Acetaminophen 650 mg 10/30/23 17:39 11/01/23 03:44 Acetaminophen 325 Mg Tablet PO 650 mg Q6H PRN Administration Pain, Mild (Pain Scale 1-3), fever or headache Divalproex Sodium 250 mg 10/31/23 09:00 11/01/23 08:32 Divalproex Sodium 250 Mg Tablet. PO 250 mg DAILY KATELIN Administration Divalproex Sodium 500 mg 10/30/23 21:00 10/31/23 19:53 Divalproex Sodium 500 Mg Tablet. PO 500 mg BEDTIME KATELIN Administration Enoxaparin Sodium 40 mg 10/30/23 18:00 10/31/23 18:10 Enoxaparin Sodium 40 Mg/0.4 Ml Syringe SUBCUT 40 mg Q24H KATELIN Administration Levothyroxine Sodium 50 mcg 10/30/23 17:45 11/01/23 05:08 Levothyroxine Sodium 50 Mcg Tablet PO 50 mcg DAILY@0600 KATELIN Administration Quetiapine Fumarate 150 mg 10/30/23 21:00 11/01/23 08:32 Quetiapine Fumarate 100 Mg Tablet PO 150 mg BID KATELIN Administration Sodium Chloride 3 ml 10/31/23 00:00 11/01/23 08:33 0.9 % Sodium Chloride Flush 3 Ml Syringe IVFLUSH 3 ml QSHIFT KATELIN Administration Discontinued Medications Generic Name Dose Route Start Last Admin Trade Name Freq PRN Reason Stop Dose Admin Sodium Chloride 1,000 mls @ 999 mls/hr 10/30/23 14:00 10/30/23 18:05 Ns IV 10/30/23 15:00 Infused .Q1H1M KATELIN Infusion Sodium Chloride 1,000 mls @ 100 mls/hr 10/30/23 18:00 10/30/23 21:05 Ns IVCONT Infused .Q10H KATELIN Infusion Dextrose/Sodium Chloride 1,000 mls @ 100 mls/hr 10/30/23 21:00 10/31/23 10:09 D51/2ns IVCONT Infused .Q10H KATELIN Infusion Medical Decision Making Medical Decision Making MDM Narrative: [age] female with seizure disorder, bipolar disorder, hypothyroid sent in for routine labs showing hypernatremia. The patient likely has hypovolemic, dehydration related hypernatremia. She is awake alert oriented has a reassuring nonfocal neurologic and cardiovascular exam. She has a mild acute kidney injury.. Start with a 1 L normal saline bolus given the severity of the hypernatremia anticipate admission __ Screening ECG with ST depressions. She has no anginal symptomatology I doubt acute ischemia there is no comparison ECG. Perhaps inpatient team can find an outpatient ECG done in the PCP office to compare this to. Differential Diagnosis Differential Diagnoses: The differential diagnosis associated with the presentation includes Severe hypernatremia, electrolyte imbalance, acute kidney injury, dehydration, hypovolemia, magnification adverse effect Consult Healthcare Provider Management of the patient was discussed with: Hospitalist Lab Data MDM Lab Attestation statement: I reviewed the patient's lab results. 10/30/23 11:31 11/01/23 09:07 Labs: Lab Results 10/30/23 10/30/23 10/30/23 Range/Units 11:31 14:34 15:17 WBC 7.3 (4.8-10.8) X10*3/uL RBC 4.65 (4.20-5.50) X10*6/uL Hgb 13.9 (12.0-16.0) g/dl Hct 45.9 (37.0-47.0) % MCV 98.7 H (80.0-98.0) fL MCH 29.9 (27.0-33.0) pg MCHC 30.3 L (31.0-35.0) g/dl RDW 13.7 (11.0-16.0) % Plt Count 174 (160-400) X10*3/uL MPV 11.4 (9.4-12.3) fL Immature Gran % (Auto) 0.3 (0.0-0.4) % Neut % (Auto) 51.2 (45-73) % Lymph % (Auto) 39.1 (20-40) % [place] % (Auto) 7.6 (2-11) % Eos % (Auto) 1.4 (0-4) % Baso % (Auto) 0.4 (0-2) % Lymph # (Auto) 2.8 (1.2-4.9) X10*3/uL [place] # (Auto) 0.6 (0.1-1.2) X10*3/uL Eos # (Auto) 0.1 (0.0-0.4) X10*3/uL Baso # (Auto) 0.0 (0.0-0.2) X10*3/uL Abs Immat Gran (auto) 0.02 (0.00-0.03) X10*3/uL Absolute Neuts (auto) 3.7 (2.0-8.3) x10*3/uL Absolute Nucleated RBC 0.000 (0.0-0.012) X10*3/uL Nucleated RBC % (auto) 0.0 (0.0-0.2) /100WBC Sodium 168 H* 169 H* (135-145) mmol/L Potassium 4.0 3.9 (3.3-5.1) mmol/L Chloride 130 H 131 H (96-108) mmol/L Carbon Dioxide 25 25 (22-29) mmol/L Anion Gap 17 17 (12-20) BUN 33 H 32 H (9-16) mg/dL Creatinine 1.67 H 1.43 H (0.5-1.4) mg/dL Estim Creat Clear Calc 37.0 43.3 Estimated GFR 32 38 Random Glucose 288 H 101 (60-115) mg/dL Osmolality 354 H (281-305) mosm/kg Calcium 9.9 10.2 (8.4-10.2) mg/dL Phosphorus 3.7 (2.7-4.5) mg/dL Magnesium 2.8 H 2.8 H (1.6-2.6) mg/dL Total Bilirubin 0.3 (0.0-1.0) mg/dL AST 19 (5-31) U/L ALT 13 (0-31) U/L Alkaline Phosphatase 78 (39-117) U/L Total Protein 7.7 (6.5-8.0) g/dL Albumin 4.4 (3.5-5.0) g/dL TSH 0.42 (0.32-4.0) uIU/mL Urine Osmolality 1234 H (373-1093) mosm/kg Ur Random Sodium 214.0 mmol/L Ur Random Potassium 97.3 mmol/L Ur Random Chloride 235.0 mmol/L Independent Interpretation I performed an independent interpretation of an: EKG (Sinus tachycardia rate 105, T-wave inversions/ST-depression precordial leads mostly V4 to V6. No comparisons though on a previous rhythm strip there does appear to be similar appearing ST depressions) Independent Historian Clinical information obtained from an independent historian. History obtained from or confirmed by: Other (Patient tie buyer at the bedside) Discharge Plan Discharge Clinical Impression: Acute hypernatremia, Acute dehydration, Acute kidney injury Patient Disposition: Admitted As Inpatient Interventions: Admission Worksheet (ED) Last Done: 10/30/23 19:53 Discharge Date/Time: 10/30/23 20:44
--- NOTE | 2023-10-30 10:59 | ECG_ITS ---
Test Reason : ABNORMAL LABS Blood Pressure : / mmHG Vent. Rate : 105 BPM Atrial Rate : 105 BPM P-R Int : 112 ms QRS Dur : 076 ms QT Int : 344 ms P-R-T Axes : 030 007 253 degrees QTc Int : 454 ms Sinus tachycardia Nonspecific ST and T wave abnormality Abnormal ECG When compared with ECG of 14-OCT-2018 19:04, Inverted T waves have replaced nonspecific T wave abnormality in Anterior leads Referred By: Thania Galindo Electronically Signed By:RUSH RODNEY
[2023-10-30 11:38] LABS: MANUAL DIFF FLAG NO
[2023-10-30 11:56] LABS: Basophils Percent Auto 0.4 % (0-2); Eosinophils Absolute Auto 0.1 X10*3/uL (0.0-0.4); Eosinophils Percent Auto 1.4 % (0-4); Hematocrit 45.9 % (37.0-47.0); Hemoglobin 13.9 g/dl (12.0-16.0); Imm Gran Abs Auto 0.02 X10*3/uL (0.00-0.03); Imm Gran Pct Auto 0.3 % (0.0-0.4); Lymphocytes Absolute Auto 2.8 X10*3/uL (1.2-4.9); Lymphocytes Percent Auto 39.1 % (20-40); Mean Corpuscular HGB Conc 30.3 g/dl (31.0-35.0); Mean Corpuscular Hemoglobin 29.9 pg (27.0-33.0); Mean Corpuscular Volume 98.7 fL (80.0-98.0); Mean Platelet Volume 11.4 fL (9.4-12.3); Monocytes Absolute Auto 0.6 X10*3/uL (0.1-1.2); Monocytes Percent Auto 7.6 % (2-11); Neutrophils Absolute Auto 3.7 x10*3/uL (2.0-8.3); Neutrophils Percent Auto 51.2 % (45-73); Platelet Count 174 X10*3/uL (160-400); Red Blood Count 4.65 X10*6/uL (4.20-5.50); Red Cell Distribution Width 13.7 % (11.0-16.0); White Blood Count 7.3 X10*3/uL (4.8-10.8)
[2023-10-30 12:11] LABS: Alanine Aminotransferase 13 U/L (0-31); Albumin Level 4.4 g/dL (3.5-5.0); Alkaline Phosphatase 78 U/L (39-117); Anion Gap 17 (12-20); Aspartate Amino Transferase 19 U/L (5-31); Bilirubin Total 0.3 mg/dL (0.0-1.0); Blood Urea Nitrogen 33 mg/dL (9-16); Calcium 9.9 mg/dL (8.4-10.2); Carbon Dioxide 25 mmol/L (22-29); Chloride 130 mmol/L (96-108); Estimated Glomerular Filt Rate 32; Glucose Random 288 mg/dL (60-115); Magnesium 2.8 mg/dL (1.6-2.6); Sodium 168 mmol/L (135-145); Total Protein 7.7 g/dL (6.5-8.0)
--- NOTE | 2023-10-30 13:56 | ED_ITS ---
HPI - Recheck/Abnormal Lab/Rx General Chief Complaint: Recheck/Abnormal Lab/Rx Stated Complaint: High sodium Time Seen by Provider: 10/30/23 13:54 Source: family ([employer]) Mode of arrival: ambulatory Limitations: no limitations History of Present Illness ED Provider: Asa Mathur MD HPI narrative: Sent in for outpatient labs showing sodium 168. Patient has history of bipolar disorder, seizure disorder on Depakote had routine blood work drawn by PCP this morning about 08:00 was called to come into the ED for elevated sodium. The patient appears to have had a history of hyponatremia and saw renal in the past. She has been somewhat fatigued over the past few days and automobile washer steam at the bedside acknowledges decreased p.o. intake and water/fluid intake. Specifically patient denies headache, chest pain, nausea vomiting diarrhea skin rash. Related Data Home Medications ?Medication ?Instructions ?Recorded ?Confirmed divalproex 250 mg tablet,delayed 250 mg PO DAILY 04/03/23 10/30/23 release levothyroxine 50 mcg tablet 50 mcg PO DAILY@0600 04/03/23 10/30/23 lovastatin 20 mg tablet 20 mg PO DAILY 04/03/23 10/30/23 acetaminophen 325 mg tablet 650 mg PO Q6H PRN Pain 10/30/23 10/30/23 cholecalciferol (vitamin D3) 50 50 mcg PO DAILY 10/30/23 10/30/23 mcg (2,000 unit) tablet (Vitamin D3) divalproex 250 mg tablet,delayed 500 mg PO BEDTIME 10/30/23 10/30/23 release quetiapine 200 mg tablet 200 mg PO BEDTIME 10/30/23 10/30/23 quetiapine 300 mg tablet,extended 300 mg PO BEDTIME 10/30/23 10/30/23 release 24 hr Allergies Allergy/AdvReac Type Severity Reaction Status Date / Time meropenem [From MERREM] Allergy Unknown UNKNOWN Verified 10/30/23 10:59 Penicillins [PENICILLINS] Allergy Unknown UNKNOWN Verified 10/30/23 10:59 Sulfa (Sulfonamide Allergy Unknown UNKNOWN Verified 10/30/23 10:59 Antibiotics) [SULFA(SULFONAMIDE ANTIBIOTICS)] SHELLFISH Allergy Unknown UNKNOWN Uncoded 10/30/23 10:59 [facility] Past Medical History Medical History (Updated 10/30/23 @ 14:12 by Asa Mathur MD) Hyponatremia Seizures Bipolar disorder Hypothyroid Elevated cholesterol Cerebral aneurysm Surgical History (Updated 04/05/23 @ 08:01 by Ayanna Kasper RN) Hx of tracheostomy Hx of brain surgery Hx of tubal ligation History of left mastoidectomy H/O colonoscopy Social History Social History (Updated 04/03/23 @ 10:15 by Susy Maddox RN) Household Members: Caregiver Household Members Other:: lives with [facility] caregiver Housing: House Are you a primary pet care associate to a significant other at home: No Do you presently have visiting nurse or other home services: Yes Patient Tobacco Use Status: Former Tobacco user Tobacco use type: Cigarette Advance Directives Date on File: 11/06/11 service: No Physical Exam 2 Vital Signs: Vital Signs: Last Vital Signs Temp 98.3 F 11/01/23 11:08 Pulse 112 H 11/01/23 11:08 Resp 18 11/01/23 11:08 BP 108/65 11/01/23 11:08 Pulse Ox 97 11/01/23 11:08 O2 Del Method Room Air 11/01/23 11:08 BMI result Body Mass Index 35.9 Const: Other: EXAM: Gen: Alert, awake, well appearing, dry oral mucosa Head: Atraumatic Eyes: Anicteric, Normal conjunctiva. ENT: Moist mucosa, no pallor. ? Neck: Supple. Respiratory: Breathing comfortably, No distress.Clear to auscultation bilaterally, symmetric chest expansion, No wheeze, rales, ronchi. Cardiovascular: Regular rate and rhythm. No murmurs or rub. Well perfused periphery, warm extremities. No edema. ? Abdominal: Soft, no objective distension. No palpable masses or obvious organomegaly. No focal tenderness, no guarding, no rebound tenderness or other peritoneal findings. : No flank tenderness. Neuro: Alert. Gross movement of all extremities intact. ? Vital signs: See flowsheet Medications Administered Generic Name Dose Route Start Last Admin Trade Name Freq PRN Reason Stop Dose Admin Acetaminophen 650 mg 10/30/23 17:39 11/01/23 03:44 Acetaminophen 325 Mg Tablet PO 650 mg Q6H PRN Administration Pain, Mild (Pain Scale 1-3), fever or headache Divalproex Sodium 250 mg 10/31/23 09:00 11/01/23 08:32 Divalproex Sodium 250 Mg Tablet. PO 250 mg DAILY KATELIN Administration Divalproex Sodium 500 mg 10/30/23 21:00 10/31/23 19:53 Divalproex Sodium 500 Mg Tablet. PO 500 mg BEDTIME KATELIN Administration Enoxaparin Sodium 40 mg 10/30/23 18:00 10/31/23 18:10 Enoxaparin Sodium 40 Mg/0.4 Ml Syringe SUBCUT 40 mg Q24H KATELIN Administration Levothyroxine Sodium 50 mcg 10/30/23 17:45 11/01/23 05:08 Levothyroxine Sodium 50 Mcg Tablet PO 50 mcg DAILY@0600 KATELIN Administration Quetiapine Fumarate 150 mg 10/30/23 21:00 11/01/23 08:32 Quetiapine Fumarate 100 Mg Tablet PO 150 mg BID KATELIN Administration Sodium Chloride 3 ml 10/31/23 00:00 11/01/23 08:33 0.9 % Sodium Chloride Flush 3 Ml Syringe IVFLUSH 3 ml QSHIFT KATELIN Administration Discontinued Medications Generic Name Dose Route Start Last Admin Trade Name Freq PRN Reason Stop Dose Admin Sodium Chloride 1,000 mls @ 999 mls/hr 10/30/23 14:00 10/30/23 18:05 Ns IV 10/30/23 15:00 Infused .Q1H1M KATELIN Infusion Sodium Chloride 1,000 mls @ 100 mls/hr 10/30/23 18:00 10/30/23 21:05 Ns IVCONT Infused .Q10H KATELIN Infusion Dextrose/Sodium Chloride 1,000 mls @ 100 mls/hr 10/30/23 21:00 10/31/23 10:09 D51/2ns IVCONT Infused .Q10H KATELIN Infusion Medical Decision Making Medical Decision Making MDM Narrative: MDM Narrative: [age] female with seizure disorder, bipolar disorder, hypothyroid sent in for routine labs showing hypernatremia. The patient likely has hypovolemic, dehydration related hypernatremia. She is awake alert oriented has a reassuring nonfocal neurologic and cardiovascular exam. She has a mild acute kidney injury.. Start with a 1 L normal saline bolus given the severity of the hypernatremia anticipate admission Case d/w Dr. katz who will eval for admission. Dolly added on Urine NA/Osm __ Screening ECG with ST depressions. She has no anginal symptomatology I doubt acute ischemia there is no comparison ECG. Perhaps inpatient team can find an outpatient ECG done in the PCP office to compare this to. Differential Diagnosis Differential Diagnoses: The differential diagnosis associated with the presentation includes Severe hypernatremia, electrolyte imbalance, acute kidney injury, dehydration, hypovolemia, magnification adverse effect Consult Healthcare Provider Management of the patient was discussed with: Hospitalist Lab Data [facility] Lab Attestation statement: I reviewed the patient's lab results. Lab Data [facility] Lab Attestation statement: I reviewed the patient's lab results. 10/30/23 11:31 11/01/23 09:07 Labs: Lab Results 10/30/23 10/30/23 10/30/23 Range/Units 11:31 14:34 15:17 WBC 7.3 (4.8-10.8) X10*3/uL RBC 4.65 (4.20-5.50) X10*6/uL Hgb 13.9 (12.0-16.0) g/dl Hct 45.9 (37.0-47.0) % MCV 98.7 H (80.0-98.0) fL MCH 29.9 (27.0-33.0) pg MCHC 30.3 L (31.0-35.0) g/dl RDW 13.7 (11.0-16.0) % Plt Count 174 (160-400) X10*3/uL MPV 11.4 (9.4-12.3) fL Immature Gran % (Auto) 0.3 (0.0-0.4) % Neut % (Auto) 51.2 (45-73) % Lymph % (Auto) 39.1 (20-40) % [place] % (Auto) 7.6 (2-11) % Eos % (Auto) 1.4 (0-4) % Baso % (Auto) 0.4 (0-2) % Lymph # (Auto) 2.8 (1.2-4.9) X10*3/uL [place] # (Auto) 0.6 (0.1-1.2) X10*3/uL Eos # (Auto) 0.1 (0.0-0.4) X10*3/uL Baso # (Auto) 0.0 (0.0-0.2) X10*3/uL Abs Immat Gran (auto) 0.02 (0.00-0.03) X10*3/uL Absolute Neuts (auto) 3.7 (2.0-8.3) x10*3/uL Absolute Nucleated RBC 0.000 (0.0-0.012) X10*3/uL Nucleated RBC % (auto) 0.0 (0.0-0.2) /100WBC Sodium 168 H* 169 H* (135-145) mmol/L Potassium 4.0 3.9 (3.3-5.1) mmol/L Chloride 130 H 131 H (96-108) mmol/L Carbon Dioxide 25 25 (22-29) mmol/L Anion Gap 17 17 (12-20) BUN 33 H 32 H (9-16) mg/dL Creatinine 1.67 H 1.43 H (0.5-1.4) mg/dL Estim Creat Clear Calc 37.0 43.3 Estimated GFR 32 38 Random Glucose 288 H 101 (60-115) mg/dL Osmolality 354 H (281-305) mosm/kg Calcium 9.9 10.2 (8.4-10.2) mg/dL Phosphorus 3.7 (2.7-4.5) mg/dL Magnesium 2.8 H 2.8 H (1.6-2.6) mg/dL Total Bilirubin 0.3 (0.0-1.0) mg/dL AST 19 (5-31) U/L ALT 13 (0-31) U/L Alkaline Phosphatase 78 (39-117) U/L Total Protein 7.7 (6.5-8.0) g/dL Albumin 4.4 (3.5-5.0) g/dL TSH 0.42 (0.32-4.0) uIU/mL Urine Osmolality 1234 H (373-1093) mosm/kg Ur Random Sodium 214.0 mmol/L Ur Random Potassium 97.3 mmol/L Ur Random Chloride 235.0 mmol/L Independent Interpretation I performed an independent interpretation of an: EKG Interpretation: Sinus tachycardia rate 105, subtle ST depression T-wave inversion precordium no comparisons rhythm strip in the past does appear to show similar Discharge Plan Discharge Clinical Impression: Acute hypernatremia, Acute dehydration, Acute kidney injury Patient Disposition: Admitted As Inpatient Interventions: Admission Worksheet (ED) Last Done: 10/30/23 19:53 Discharge Date/Time: 10/30/23 20:44
[2023-10-30] MEDS: 0.9 % Sodium Chloride 1,000 ML 999 ML IV (14:43)
[2023-10-30 14:55] LABS: Osmolality, Serum 354 mosm/kg (281-305)
--- NOTE | 2023-10-30 14:58 | PHA.MEDREC ---
Pharmacy Consult ? Medication Reconciliation Pharmacy has completed the medication reconciliation. Spoke with patient who was a poor historian, spoke with Rosa M who helps pt with medications and she was able to confirm all medications.
[2023-10-30 15:14] VITALS: BP 131/78; PULSE 92; RESP 16; TEMP 36.8; O2SAT 95
[2023-10-30 15:17] LABS: Thyroid Stimulating Hormone 0.42 uIU/mL (0.32-4.0)
[2023-10-30 15:28] LABS: Anion Gap 17 (12-20); Blood Urea Nitrogen 32 mg/dL (9-16); Calcium 10.2 mg/dL (8.4-10.2); Carbon Dioxide 25 mmol/L (22-29); Chloride 131 mmol/L (96-108); Creatinine Clr Calc Pharmacy 43.3; Estimated Glomerular Filt Rate 38; Glucose Random 101 mg/dL (60-115); Magnesium 2.8 mg/dL (1.6-2.6); Phosphorus 3.7 mg/dL (2.7-4.5); Potassium 3.9 mmol/L (3.3-5.1); Sodium 169 mmol/L (135-145)
[2023-10-30 15:46] LABS: Osmolality Urine 1234 mosm/kg (373-1093)
[2023-10-30 16:00] VITALS: BP 117/71; PULSE 92; RESP 19; TEMP 36.7; O2SAT 97
--- NOTE | 2023-10-30 17:45 | PM.IMHP ---
History of Present Illness Date of Service: 10/30/23 Attending physician on admission: Danielle Ogden Chief Complaint: hypernatremia /jorge 57-year-old female with past medical history of bipolar disorder, hypothyroid, hypercholesteremia, cerebral aneurysm, history of seizure : Came to the hospital because of feeling tired and weak, also went to her doctor appointment where she found to have sodium of 171. She is a poor historian but able to tell that she was not eating or hydrating well from at least past few days, she says she does not know the reason but she was not feeling interested in eating, she also feels somewhat sad. Denies any new complaint of chest pain or shortness of breath or abdominal pain or fever or chills or nausea or vomiting or abdominal pain Denies any cough Denies any weakness or numbness. Lab imaging reviewed: Patient has JORGE: Creatinine of 1.6 initially, chloride 131 Serum osmolality is 354, urine osmolality 1234 range tsh normal In ED patient received 1 L normal saline: Sodium trending down to 168, creatinine also improving to 1.4 range. Admission was requested for hyponatremia workup and management. Review of Systems Review of Systems: As above. [facility] Medical History (Updated 10/30/23 @ 14:12 by Asa Mathur MD) Hyponatremia Seizures Bipolar disorder Hypothyroid Elevated cholesterol Cerebral aneurysm Surgical History (Updated 04/05/23 @ 08:01 by Ayanna Kasper, LAM) Hx of tracheostomy Hx of brain surgery Hx of tubal ligation History of left mastoidectomy H/O colonoscopy Social History (Updated 04/03/23 @ 10:15 by Susy Maddox RN) Household Members Other:: lives with W [employer] [facility] [place] caregiver Are you a primary customer care associate to a significant other at home: No Do you presently have visiting nurse or other home services: Yes ([employer]) Patient Tobacco Use Status: Former Tobacco user Tobacco use type: Cigarette Advance Directives: Yes Advance Directives on File: Yes Advance Directives Date on File: 11/06/11 Meds Allergies Allergy/AdvReac Type Severity Reaction Status Date / Time meropenem [From MERREM] Allergy Unknown UNKNOWN Verified 10/30/23 10:59 Penicillins [PENICILLINS] Allergy Unknown UNKNOWN Verified 10/30/23 10:59 Sulfa (Sulfonamide Allergy Unknown UNKNOWN Verified 10/30/23 10:59 Antibiotics) [SULFA(SULFONAMIDE ANTIBIOTICS)] SHELLFISH Allergy Unknown UNKNOWN Uncoded 10/30/23 10:59 Active Medications: Current Medications Acetaminophen (Acetaminophen 325 Mg Tablet) 650 mg PO Q6H PRN PRN Reason: Pain, Mild (Pain Scale 1-3), fever or headache Calcium Carbonate (Calcium Carbonate 750 Mg Tab.Chew) 750 mg PO Q4H PRN PRN Reason: Heartburn Divalproex Sodium (Divalproex Sodium 250 Mg Tablet.Dr) 250 mg PO DAILY KATELIN Divalproex Sodium (Divalproex Sodium 500 Mg Tablet.Dr) 500 mg PO BEDTIME KATELIN Levothyroxine Sodium (Levothyroxine Sodium 50 Mcg Tablet) 50 mcg PO DAILY@0600 [facility] Magnesium Hydroxide (Milk Of Magnesia 30 Ml Oral.Susp) 30 ml PO DAILY PRN PRN Reason: Constipation Melatonin (Melatonin 3 Mg Tablet) 6 mg PO BEDTIME PRN PRN Reason: Insomnia Non-Formulary Medication (Quetiapine) 300 mg PO BEDTIME [facility] Sodium Chloride (0.9 % Sodium Chloride Flush 3 Ml Syringe) 3 ml IVFLUSH QSHIFT [facility] Home Medications ?Medication ?Instructions ?Recorded ?Confirmed ?Last Taken ?Type divalproex 250 mg tablet,delayed 250 mg PO DAILY 04/03/23 10/30/23 10/30/23 History release levothyroxine 50 mcg tablet 50 mcg PO DAILY@0600 04/03/23 10/30/23 10/30/23 History lovastatin 20 mg tablet 20 mg PO DAILY 04/03/23 10/30/23 10/30/23 History acetaminophen 325 mg tablet 650 mg PO Q6H PRN Pain 10/30/23 10/30/23 Unknown History cholecalciferol (vitamin D3) 50 50 mcg PO DAILY 10/30/23 10/30/23 10/30/23 History mcg (2,000 unit) tablet (Vitamin D3) divalproex 250 mg tablet,delayed 500 mg PO BEDTIME 10/30/23 10/30/23 10/29/23 History release quetiapine 200 mg tablet 200 mg PO BEDTIME 10/30/23 10/30/23 10/29/23 History quetiapine 300 mg tablet,extended 300 mg PO BEDTIME 10/30/23 10/30/23 10/29/23 History release 24 hr Physical Exam Vital Signs and Narrative: Vital Signs: Last Vital Signs Temp 98.0 F 10/30/23 16:00 Pulse 92 10/30/23 16:00 Resp 19 10/30/23 16:00 BP 117/71 10/30/23 16:00 Pulse Ox 97 10/30/23 16:00 O2 Del Method Room Air 10/30/23 16:00 BMI result Body Mass Index 35.9 Appearance: Alert.? Oriented X3.? .? ENT: Pharynx normal.? Moist mucous membranes-somewhat dry. cvs: [id number], [id number] . res: clear to auscultation ,no rhonchii or wheezing abd: no rebound or guarding ,nt, bs present. ext pulses present , no cyanosis. neuro: axo3 , nonfocal. Results Labs 10/30/23 11:31 10/30/23 14:34 Labs: Laboratory Results - last 24 hr 10/30/23 10/30/23 10/30/23 11:31 14:34 15:17 MCV 98.7 H MCH 29.9 MCHC 30.3 L RDW 13.7 Plt Count 174 MPV 11.4 Immature Gran % (Auto) 0.3 Neut % (Auto) 51.2 Lymph % (Auto) 39.1 [place] % (Auto) 7.6 Eos % (Auto) 1.4 Baso % (Auto) 0.4 Lymph # (Auto) 2.8 [place] # (Auto) 0.6 Eos # (Auto) 0.1 Baso # (Auto) 0.0 Abs Immat Gran (auto) 0.02 Absolute Neuts (auto) 3.7 Absolute Nucleated RBC 0.000 Nucleated RBC % (auto) 0.0 Anion Gap 17 17 Estim Creat Clear Calc 37.0 43.3 Estimated GFR 32 38 Random Glucose 288 H 101 Osmolality 354 H Calcium 9.9 10.2 Phosphorus 3.7 Magnesium 2.8 H 2.8 H Total Bilirubin 0.3 AST 19 ALT 13 Alkaline Phosphatase 78 Total Protein 7.7 Albumin 4.4 TSH 0.42 Urine Osmolality 1234 H Ur Random Sodium 214.0 Assessment and Plan (1) Acute hypernatremia: Status: Acute Plan 57-year-old female with past medical history of bipolar disorder, hypothyroid, hypercholesteremia, cerebral aneurysm, history of seizure : Came to the hospital because of feeling tired and weak, also went to her doctor appointment where she found to have sodium of 171. Hypernatremia likely acute on ch (has multiple sodium readings elevated inpast) Possibly secondary to dehydration/decreased p.o. intake Serum and urine osmolarity both high Urine electrolytes pending Will continue normal saline 100 ml/hr moniter bmp q4hr , goal of sodium correction is 6meq/24 hours. Nephro evaluation Hypothyroid: Continue levothyroxine History of seizure disorder: Continue Depakote. History of bipolar disorder: Continue quetiapine Patient full code DVT prophylaxis: Lovenox Patient will benefit from 2 midnight stay for hyponatremia workup and management-need IV fluids, closely monitoring renal function electrolytes, Nephro expert evaluation. Above management discussed with the patient detail length she understand in agreement with the above plan, time spent 70 minute. Quality Stroke Does the patient have a stroke diagnosis?: No VTE Prior VTE?: No VTE Risk Level:: Medical - moderate - high VTE Device Contraindication: N/A - Device Ordered VTE Drug Contraindication: N/A - Med Ordered
[2023-10-30] MEDS: Enoxaparin Sodium 40 MG/0.4 ML SYRINGE SUBCUT (17:56)
[2023-10-30] MEDS: Levothyroxine Sodium 50 MCG TABLET PO (17:56)
[2023-10-30] MEDS: 0.9 % Sodium Chloride 1,000 ML 100 ML IVCONT (18:13)
[2023-10-30 18:16] LABS: Potassium Urine Random 97.3 mmol/L
[2023-10-30 20:00] VITALS: BP 99/64; PULSE 84; RESP 17; O2SAT 95
[2023-10-30 20:51] LABS: Anion Gap 15 (12-20); Blood Urea Nitrogen 28 mg/dL (9-16); Calcium 9.1 mg/dL (8.4-10.2); Carbon Dioxide 29 mmol/L (22-29); Chloride 129 mmol/L (96-108); Creatinine Clr Calc Pharmacy 42.7; Estimated Glomerular Filt Rate 37; Glucose Random 201 mg/dL (60-115); Potassium 3.9 mmol/L (3.3-5.1); Sodium 169 mmol/L (135-145)
[2023-10-30 20:57] VITALS: BP 116/70; PULSE 84; RESP 22; TEMP 36.4; O2SAT 94
[2023-10-30 21:14] VITALS: BMI 35.7
[2023-10-30] MEDS: Dextrose 5 % and 0.45 % NaCl 1,000 ML 100 ML IVCONT (21:27)
[2023-10-30] MEDS: 0.9 % Sodium Chloride Flush 3 ML SYRINGE IVFLUSH (21:27)
[2023-10-30] MEDS: Divalproex Sodium 500 MG TABLET.DR PO (21:28)
[2023-10-30] MEDS: QUEtiapine Fumarate 100 MG TABLET 150 MG PO (21:28)
[2023-10-31] VITALS (8 sets, daily range): BP systolic 113–140; BP diastolic 51–79; PULSE 79–94; RESP 18–20; TEMP 36.1–36.7; O2SAT 96–97
[2023-10-31] MEDS: Levothyroxine Sodium 50 MCG TABLET PO (05:38)
[2023-10-31] MEDS: Acetaminophen 325 MG TABLET 650 MG PO ×3 (05:38→19:52)
--- NOTE | 2023-10-31 09:26 | MHC.CM.PN ---
IMM 10/31/23, Pt lives with adult foster healthcare interpreter, Rosa M Patel. Rosa M assists pt with personal care. She does not use DME, or VNA. Rosa M is HCP and will complete form here. Rosa M will provide transport home at DC. DCP is home, resume current services. CM to follow and assist with DC plan.
[2023-10-31] MEDS: QUEtiapine Fumarate 100 MG TABLET 150 MG PO ×2 (10:03→19:53)
[2023-10-31] MEDS: Divalproex Sodium 250 MG TABLET.DR PO (10:03)
[2023-10-31] MEDS: 0.9 % Sodium Chloride Flush 3 ML SYRINGE IVFLUSH ×3 (10:04→19:53)
[2023-10-31 10:22] LABS: Anion Gap 14 (12-20); Blood Urea Nitrogen 25 mg/dL (9-16); Calcium 9.4 mg/dL (8.4-10.2); Carbon Dioxide 27 mmol/L (22-29); Chloride 125 mmol/L (96-108); Creatinine Clr Calc Pharmacy 48.5; Estimated Glomerular Filt Rate 43; Glucose Random 213 mg/dL (60-115); Potassium 4.8 mmol/L (3.3-5.1); Sodium 161 mmol/L (135-145)
[2023-10-31 12:25] LABS: Anion Gap 13 (12-20); Blood Urea Nitrogen 24 mg/dL (9-16); Calcium 9.5 mg/dL (8.4-10.2); Carbon Dioxide 26 mmol/L (22-29); Chloride 126 mmol/L (96-108); Creatinine Clr Calc Pharmacy 52.3; Estimated Glomerular Filt Rate 47; Glucose Random 116 mg/dL (60-115); Potassium 4.1 mmol/L (3.3-5.1); Sodium 161 mmol/L (135-145)
--- NOTE | 2023-10-31 15:18 | P.PNIM_ITS ---
Subjective Subjective Date of Service: 10/31/23 Interval History: malena,hypernatremia Review of Systems Patient seems improving sodium in range 161 no fever or chills Physical Exam 2 Vital Signs: Vital Signs: Last Vital Signs Temp 97.6 F 10/31/23 10:53 Pulse 88 10/31/23 10:53 Resp 20 10/31/23 10:53 BP 113/51 L 10/31/23 10:53 Pulse Ox 96 10/31/23 10:53 O2 Del Method Room Air 10/31/23 10:53 BMI result Body Mass Index 35.7 Appearance: Alert.? Oriented X3.? cvs: [id number], [id number] , no murmur res: clear to auscultation ,no rhonchii or wheezing abd: no rebound or guarding ,nt, bs present. ext pulses present , no cyanosis . neuro: axo3 , nonfocal. Objective Data Active Medications Acetaminophen (Acetaminophen 325 Mg Tablet) 650 mg PO Q6H PRN PRN Reason: Pain, Mild (Pain Scale 1-3), fever or headache Last Admin: 10/31/23 11:39 Dose: 650 mg Documented By: DEEPALI Calcium Carbonate (Calcium Carbonate 750 Mg Tab.Chew) 750 mg PO Q4H PRN PRN Reason: Heartburn Divalproex Sodium (Divalproex Sodium 250 Mg Tablet.) 250 mg PO DAILY [facility] Last Admin: 10/31/23 10:03 Dose: 250 mg Documented By: DEEPALI Divalproex Sodium (Divalproex Sodium 500 Mg Tablet.) 500 mg PO BEDTIME [facility] Last Admin: 10/30/23 21:28 Dose: 500 mg Documented By: ELMA Enoxaparin Sodium (Enoxaparin Sodium 40 Mg/0.4 Ml Syringe) 40 mg SUBCUT Q24H [facility] Last Admin: 10/30/23 17:56 Dose: 40 mg Documented By: UDAY Levothyroxine Sodium (Levothyroxine Sodium 50 Mcg Tablet) 50 mcg PO DAILY@0600 [facility] Last Admin: 10/31/23 05:38 Dose: 50 mcg Documented By: ELMA Magnesium Hydroxide (Milk Of Magnesia 30 Ml Oral.Susp) 30 ml PO DAILY PRN PRN Reason: Constipation Melatonin (Melatonin 3 Mg Tablet) 6 mg PO BEDTIME PRN PRN Reason: Insomnia Quetiapine Fumarate (Quetiapine Fumarate 100 Mg Tablet) 150 mg PO BID [facility] Last Admin: 10/31/23 10:03 Dose: 150 mg Documented By: DEEPALI Sodium Chloride (0.9 % Sodium Chloride Flush 3 Ml Syringe) 3 ml IVFLUSH QSHIFT [facility] Last Admin: 10/31/23 10:04 Dose: 3 ml Documented By: DEEPALI Labs 10/30/23 11:31 10/31/23 11:50 Labs: Laboratory Results - last 24 hr 10/30/23 10/30/23 10/30/23 14:34 15:17 20:16 Anion Gap 17 15 Estim Creat Clear Calc 43.3 42.7 Estimated GFR 38 37 Random Glucose 101 201 H Calcium 10.2 9.1 D Phosphorus 3.7 Magnesium 2.8 H Urine Osmolality 1234 H Ur Random Sodium 214.0 Ur Random Potassium 97.3 Ur Random Chloride 235.0 10/31/23 10/31/23 09:30 11:50 Anion Gap 14 13 Estim Creat Clear Calc 48.5 52.3 Estimated GFR 43 47 Random Glucose 213 H 116 H Calcium 9.4 9.5 Phosphorus Magnesium Urine Osmolality Ur Random Sodium Ur Random Potassium Ur Random Chloride Assessment and Plan (1) Acute kidney injury: Status: Acute (2) Acute dehydration: Status: Acute (3) Acute hypernatremia: Status: Acute Assessment and Plan: 57-year-old female with past medical history of bipolar disorder, hypothyroid, hypercholesteremia, cerebral aneurysm, history of seizure : Came to the hospital because of feeling tired and weak, also went to her doctor appointment where she found to have sodium of 171. Hypernatremia likely acute on ch (has multiple sodium readings elevated inpast) Possibly secondary to dehydration/decreased p.o. intake Serum and urine osmolarity both high Urine electrolytes pending sodium levels 171-slowly trend down to 161 today (goal is 6-8 meq/day) hold fluids to avoid overcorrection ,moniter bmp closely Nephro evaluation Hypothyroid: Continue levothyroxine History of seizure disorder: Continue Depakote. History of bipolar disorder: Continue quetiapine full code. DVT prophylaxis: Lovenox ongoing hospitlisation need for hyponatremia workup and management-need IV fluids, closely monitoring renal function electrolytes, Nephro expert evaluation. Quality Stroke Does the patient have a stroke diagnosis?: No VTE Prior VTE?: No VTE Risk Level:: Medical - moderate - high VTE Device Contraindication: N/A - Device Ordered VTE Drug Contraindication: N/A - Med Ordered
[2023-10-31 16:05] LABS: Sodium 159 mmol/L (135-145)
[2023-10-31] MEDS: Enoxaparin Sodium 40 MG/0.4 ML SYRINGE SUBCUT (18:10)
[2023-10-31] MEDS: Divalproex Sodium 500 MG TABLET.DR PO (19:53)
[2023-11-01] MEDS: Acetaminophen 325 MG TABLET 650 MG PO (03:44)
[2023-11-01 04:00] VITALS: BP 121/60; PULSE 91; RESP 20; TEMP 36.2; O2SAT 96
[2023-11-01] MEDS: Levothyroxine Sodium 50 MCG TABLET PO (05:08)
[2023-11-01 07:18] VITALS: BP 144/74; PULSE 79; RESP 18; TEMP 36.8; O2SAT 97
[2023-11-01] MEDS: Divalproex Sodium 250 MG TABLET.DR PO (08:32)
[2023-11-01] MEDS: QUEtiapine Fumarate 100 MG TABLET 150 MG PO ×2 (08:32→21:52)
[2023-11-01] MEDS: 0.9 % Sodium Chloride Flush 3 ML SYRINGE IVFLUSH ×2 (08:33→21:54)
[2023-11-01 10:00] LABS: Anion Gap 15 (12-20); Blood Urea Nitrogen 17 mg/dL (9-16); Calcium 9.5 mg/dL (8.4-10.2); Carbon Dioxide 27 mmol/L (22-29); Chloride 117 mmol/L (96-108); Creatinine Clr Calc Pharmacy 61.7; Estimated Glomerular Filt Rate 57; Glucose Random 192 mg/dL (60-115); Potassium 4.2 mmol/L (3.3-5.1); Sodium 155 mmol/L (135-145)
[2023-11-01 11:08] VITALS: BP 108/65; PULSE 112; RESP 18; TEMP 36.8; O2SAT 97
--- NOTE | 2023-11-01 13:03 | PM.CNNEP ---
History of Present Illness Reason for Consult Consult date: 11/01/23 Chief Complaint Chief complaint: hypernatremia, jorge History of Present Illness Narrative: 57-year-old female with bipolar disorder came to the hospital because of feeling tired and weak. She also has seen a MD where she found to have sodium of 171. She is a poor historian but able to tell that she was not eating or hydrating well from at least past few days, she says she does not know the reason but she was not feeling interested in eating. she also feels somewhat depressed. Denies any new complaint of chest pain or shortness of breath or abdominal pain or fever or chills or nausea or vomiting, abdominal pain, cough, weakness or numbness. Serum Creatinine was 1.6 at presentation. She was admitted for further management . Nephrology was consulted to assist in her clinical care during her current hospital stay PMFSH Past Medical History Medical History (Updated 10/30/23 @ 14:12 by Asa Mathur MD) Hyponatremia Seizures Bipolar disorder Hypothyroid Elevated cholesterol Cerebral aneurysm Surgical History Surgical History (Updated 04/05/23 @ 08:01 by Ayanna Kasper RN) Hx of tracheostomy Hx of brain surgery Hx of tubal ligation History of left mastoidectomy H/O colonoscopy Social History Social History (Updated 04/03/23 @ 10:15 by Susy Maddox RN) Household Members: Caregiver Household Members Other:: lives with Diego [facility] caregiver Housing: House Are you a primary field care manager to a significant other at home: No Do you presently have visiting nurse or other home services: Yes Patient Tobacco Use Status: Former Tobacco user Tobacco use type: Cigarette Advance Directives Date on File: 11/06/11 service: No Meds Allergies Allergy/AdvReac Type Severity Reaction Status Date / Time meropenem [From MERREM] Allergy Unknown UNKNOWN Verified 10/30/23 10:59 Penicillins [PENICILLINS] Allergy Unknown UNKNOWN Verified 10/30/23 10:59 Sulfa (Sulfonamide Allergy Unknown UNKNOWN Verified 10/30/23 10:59 Antibiotics) [SULFA(SULFONAMIDE ANTIBIOTICS)] SHELLFISH Allergy Unknown UNKNOWN Uncoded 10/30/23 10:59 Active Medications: Current Medications Acetaminophen (Acetaminophen 325 Mg Tablet) 650 mg PO Q6H PRN PRN Reason: Pain, Mild (Pain Scale 1-3), fever or headache Last Admin: 11/01/23 03:44 Dose: 650 mg Calcium Carbonate (Calcium Carbonate 750 Mg Tab.Chew) 750 mg PO Q4H PRN PRN Reason: Heartburn Divalproex Sodium (Divalproex Sodium 250 Mg Tablet.) 250 mg PO DAILY [facility] Last Admin: 11/01/23 08:32 Dose: 250 mg Divalproex Sodium (Divalproex Sodium 500 Mg Tablet.) 500 mg PO BEDTIME [facility] Last Admin: 10/31/23 19:53 Dose: 500 mg Enoxaparin Sodium (Enoxaparin Sodium 40 Mg/0.4 Ml Syringe) 40 mg SUBCUT Q24H [facility] Last Admin: 10/31/23 18:10 Dose: 40 mg Levothyroxine Sodium (Levothyroxine Sodium 50 Mcg Tablet) 50 mcg PO DAILY@0600 [facility] Last Admin: 11/01/23 05:08 Dose: 50 mcg Magnesium Hydroxide (Milk Of Magnesia 30 Ml Oral.Susp) 30 ml PO DAILY PRN PRN Reason: Constipation Melatonin (Melatonin 3 Mg Tablet) 6 mg PO BEDTIME PRN PRN Reason: Insomnia Quetiapine Fumarate (Quetiapine Fumarate 100 Mg Tablet) 150 mg PO BID [facility] Last Admin: 11/01/23 08:32 Dose: 150 mg Sodium Chloride (0.9 % Sodium Chloride Flush 3 Ml Syringe) 3 ml IVFLUSH QSHIFT [facility] Last Admin: 11/01/23 08:33 Dose: 3 ml Home Medications ?Medication ?Instructions ?Recorded ?Confirmed ?Last Taken ?Type divalproex 250 mg tablet,delayed 250 mg PO DAILY 04/03/23 10/30/23 10/30/23 History release levothyroxine 50 mcg tablet 50 mcg PO DAILY@0600 04/03/23 10/30/23 10/30/23 History lovastatin 20 mg tablet 20 mg PO DAILY 04/03/23 10/30/23 10/30/23 History acetaminophen 325 mg tablet 650 mg PO Q6H PRN Pain 10/30/23 10/30/23 Unknown History cholecalciferol (vitamin D3) 50 50 mcg PO DAILY 10/30/23 10/30/23 10/30/23 History mcg (2,000 unit) tablet (Vitamin D3) divalproex 250 mg tablet,delayed 500 mg PO BEDTIME 10/30/23 10/30/2324 History release quetiapine 200 mg tablet 200 mg PO BEDTIME 10/30/23 10/30/23 10/29/23 History quetiapine 300 mg tablet,extended 300 mg PO BEDTIME 10/30/23 10/30/23 10/29/23 History release 24 hr Physical Exam Vital Signs: Last Vital Signs Temp 98.3 F 11/01/23 11:08 Pulse 112 H 11/01/23 11:08 Resp 18 11/01/23 11:08 BP 108/65 11/01/23 11:08 Pulse Ox 97 11/01/23 11:08 O2 Del Method Room Air 11/01/23 11:08 BMI result Body Mass Index 35.7 Const General: comfortable and no acute distress Orientation/consciousness: patient oriented x3 HEENT Head: Yes normocephalic Mouth: Normal oral and palatal mucosa present Eyes EOM: EOMs intact bilaterally Neck Neck: Yes supple Resp Auscultation: clear to auscultation bilaterally Cardio Jugular venous distension: no JVD Rate: regular rate GI Palpation (GI): Soft to palpation Auscultation: normal bowel sounds General: Yes no CVA tenderness Back/Spine/Pelvis Back: no CVA tenderness Skin General skin exam: no rashes or lesions noted Neuro General: patient oriented x3 and moves all extremities Extrem General: Yes no pedal edema Results Lab Results 10/30/23 11:31 11/01/23 09:07 Lab results: Chemistry 10/30/23 10/30/23 10/30/23 11:31 14:34 20:16 Sodium 168 H* 169 H* 169 H* Potassium 4.0 3.9 3.9 Carbon Dioxide 25 25 29 BUN 33 H 32 H 28 H Creatinine 1.67 H 1.43 H 1.45 H Calcium 9.9 10.2 9.1 D Phosphorus 3.7 10/31/23 10/31/23 10/31/23 09:30 11:50 15:50 Sodium 161 H* 161 H* 159 H Potassium 4.8 D 4.1 Carbon Dioxide 27 26 BUN 25 H 24 H Creatinine 1.27 1.18 Calcium 9.4 9.5 Phosphorus 11/01/23 09:07 Sodium 155 H Potassium 4.2 Carbon Dioxide 27 BUN 17 H Creatinine 1.00 Calcium 9.5 Phosphorus Hematology 10/30/23 11:31 WBC 7.3 Hgb 13.9 Plt Count 174 Urine Studies 10/30/23 15:17 Urine Osmolality 1234 H Assessment and Plan (1) Acute kidney injury: Status: Acute (2) Acute hypernatremia: Status: Acute Plan JORGE due to compromise in renal perfusion Had significant water deficit; UO OK No reason to suspect GN/AIN Serum sodium improving Serum creatinine close to baseline Would benefit from D5W @ 75 / hour Procedures Date of Service Date of Service: 11/01/23
--- NOTE | 2023-11-01 13:18 | MHC.CM.PN ---
Per rounds and EMR review, pt is not ready for DC, she requires continued treatment for hypernatremia and JORGE. DCP: home and resume care from current caregver.
[2023-11-01] MEDS: Dextrose 5 % 1,000 ML 75 ML IVCONT (14:13)
[2023-11-01 15:19] VITALS: BP 107/71; PULSE 99; RESP 18; TEMP 37.2; O2SAT 96
--- NOTE | 2023-11-01 16:22 | HO.PM.IMPN ---
Subjective Subjective Date of Service: 11/01/23 Interval History: Hyponatremia Review of Systems Denies any chest pain shortness of breath or abdominal pain or fever or chills. Physical Exam Vital Signs: Vital Signs: Last Vital Signs Temp 98.9 F 11/01/23 15:19 Pulse 99 11/01/23 15:19 Resp 18 11/01/23 15:19 BP 107/71 11/01/23 15:19 Pulse Ox 96 11/01/23 15:19 O2 Del Method Room Air 11/01/23 15:19 BMI result Body Mass Index 35.7 Appearance: Alert.? Oriented X3.? cvs: rrr, [id number] , no murmur res: clear to auscultation ,no rhonchii or wheezing abd: no rebound or guarding ,nt, bs present. ext pulses present , no cyanosis . neuro: axo3 , nonfocal. Objective Data Active Medications Acetaminophen (Acetaminophen 325 Mg Tablet) 650 mg PO Q6H PRN PRN Reason: Pain, Mild (Pain Scale 1-3), fever or headache Last Admin: 11/01/23 03:44 Dose: 650 mg Documented By: CATHY Calcium Carbonate (Calcium Carbonate 750 Mg Tab.Chew) 750 mg PO Q4H PRN PRN Reason: Heartburn Divalproex Sodium (Divalproex Sodium 250 Mg Tablet.) 250 mg PO DAILY [facility] Last Admin: 11/01/23 08:32 Dose: 250 mg Documented By: MELBA Divalproex Sodium (Divalproex Sodium 500 Mg Tablet.) 500 mg PO BEDTIME [facility] Last Admin: 10/31/23 19:53 Dose: 500 mg Documented By: CATHY Enoxaparin Sodium (Enoxaparin Sodium 40 Mg/0.4 Ml Syringe) 40 mg SUBCUT Q24H [facility] Last Admin: 10/31/23 18:10 Dose: 40 mg Documented By: DEEPALI Dextrose (D5w) 1,000 mls @ 75 mls/hr IVCONT .[id number] [facility] Last Admin: 11/01/23 14:13 Dose: 75 mls/hr Documented By: MELBA Levothyroxine Sodium (Levothyroxine Sodium 50 Mcg Tablet) 50 mcg PO DAILY@0600 [facility] Last Admin: 11/01/23 05:08 Dose: 50 mcg Documented By: CATHY Magnesium Hydroxide (Milk Of Magnesia 30 Ml Oral.Susp) 30 ml PO DAILY PRN PRN Reason: Constipation Melatonin (Melatonin 3 Mg Tablet) 6 mg PO BEDTIME PRN PRN Reason: Insomnia Quetiapine Fumarate (Quetiapine Fumarate 100 Mg Tablet) 150 mg PO BID [facility] Last Admin: 11/01/23 08:32 Dose: 150 mg Documented By: MELBA Sodium Chloride (0.9 % Sodium Chloride Flush 3 Ml Syringe) 3 ml IVFLUSH QSHIFT [facility] Last Admin: 11/01/23 16:11 Dose: Not Given Documented By: REGINA Non-Admin Reason: ivv fluids running Labs 10/30/23 11:31 11/01/23 09:07 Labs: Laboratory Results - last 24 hr 11/01/23 09:07 Anion Gap 15 Estim Creat Clear Calc 61.7 Estimated GFR 57 Random Glucose 192 H Calcium 9.5 Assessment and Plan (1) Acute kidney injury: Status: Acute (2) Acute dehydration: Status: Acute (3) Acute hypernatremia: Status: Acute Assessment and Plan: 57-year-old female with past medical history of bipolar disorder, hypothyroid, hypercholesteremia, cerebral aneurysm, history of seizure : Came to the hospital because of feeling tired and weak, also went to her doctor appointment where she found to have sodium of 171. Hypernatremia likely acute on ch (has multiple sodium readings elevated inpast) Possibly secondary to dehydration/decreased p.o. intake Serum and urine osmolarity both high Urine electrolytes pending sodium improving from 171-155 Nephro evaluation-added iv d5w -1 liter @ 75 ml/hr , moniter bmp in am. Hypothyroid: Continue levothyroxine History of seizure disorder: Continue Depakote. History of bipolar disorder: Continue quetiapine full code. DVT prophylaxis: Lovenox ongoing hospitlisation need for hyponatremia workup and management-need IV fluids, closely monitoring renal function electrolytes, Nephro expert evaluation. Quality Stroke Does the patient have a stroke diagnosis?: No VTE Prior VTE?: No VTE Risk Level:: Medical - moderate - high VTE Device Contraindication: N/A - Device Ordered VTE Drug Contraindication: N/A - Med Ordered
[2023-11-01] MEDS: Enoxaparin Sodium 40 MG/0.4 ML SYRINGE SUBCUT (17:20)
[2023-11-01 19:56] VITALS: BP 128/78; PULSE 84; RESP 16; TEMP 36.3; O2SAT 98
[2023-11-01] MEDS: Divalproex Sodium 500 MG TABLET.DR PO (21:52)
[2023-11-02] VITALS: BP 135/71; PULSE 79; RESP 16; TEMP 36.3; O2SAT 98
[2023-11-02 04:00] VITALS: BP 132/68; PULSE 80; RESP 16; TEMP 36; O2SAT 95
[2023-11-02] MEDS: Levothyroxine Sodium 50 MCG TABLET PO (06:20)
[2023-11-02 07:55] VITALS: BP 134/72; PULSE 79; RESP 18; TEMP 36.2; O2SAT 93
[2023-11-02] MEDS: Divalproex Sodium 250 MG TABLET.DR PO (07:59)
[2023-11-02] MEDS: QUEtiapine Fumarate 100 MG TABLET 150 MG PO (07:59)
[2023-11-02] MEDS: 0.9 % Sodium Chloride Flush 3 ML SYRINGE IVFLUSH (08:00)
[2023-11-02 10:33] LABS: Anion Gap 17 (12-20); Blood Urea Nitrogen 13 mg/dL (9-16); Calcium 9.7 mg/dL (8.4-10.2); Carbon Dioxide 24 mmol/L (22-29); Chloride 107 mmol/L (96-108); Creatinine Clr Calc Pharmacy 54.6; Estimated Glomerular Filt Rate 50; Glucose Random 240 mg/dL (60-115); Potassium 3.8 mmol/L (3.3-5.1); Sodium 144 mmol/L (135-145)
--- NOTE | 2023-11-02 11:45 | P.DS_ITS ---
DS: Providers Provider Date of Service: 11/02/23 Date of admission: 10/30/23 17:39 Date of discharge: 11/02/23 Primary care physician: Yoshi Dotson MD Consults: 10/31/23 15:19 Consult to Nephrology Routine Consulting Provider: [facility] Reason for consultation: hypernatremia Has provider been notified: No Attending physician on discharge: Danielle Ogden Discharging clinician: Danielle Ogden DS: Diagnosis Discharge Diagnosis (1) Acute kidney injury: Status: Acute (2) Acute dehydration: Status: Acute (3) Acute hypernatremia: Status: Acute DS: Summary Hospital Course Hospital Course: 57-year-old female with past medical history of bipolar disorder, hypothyroid, hypercholesteremia, cerebral aneurysm, history of seizure : Came to the hospital because of feeling tired and weak, also went to her doctor appointment where she found to have sodium of 171. She is a poor historian but able to tell that she was not eating or hydrating well from at least past few days, she says she does not know the reason but she was not feeling interested in eating, she also feels somewhat sad. Denies any new complaint of chest pain or shortness of breath or abdominal pain or fever or chills or nausea or vomiting or abdominal pain Denies any cough Denies any weakness or numbness. Lab imaging reviewed: Patient has JORGE: Creatinine of 1.6 initially, chloride 131 Serum osmolality is 354, urine osmolality 1234 range tsh normal In ED patient received 1 L normal saline: Sodium trending down to 168, creatinine also improving to 1.4 range. Admission was requested for hyponatremia workup and management. Hospital course: Patient admitted for decreased p.o. intake, dehydration, JORGE, hypernatremia: Started on Ivf , monitor electrolytes closely as well as renal function, also Nephrology evaluated the patient. Was still has electrolyte abnormalities indicate secondary to dehydration which seems to be improved with hydration. Patient was strongly advised for p.o. hydration and oral intake patient agrees. Monitor BMP out patiently in 1 week with PCP. Patient also had mild hyperglycemia possible related to d5w, her hemoglobin A1c 5.9 , patient was advised for dm diet and follow up with pcp outpatient . plan: Discussed with patient and encouraged strongly for p.o. intake and hydration otherwise patient will have recurrent electrolytic abnormalities as above. mild hyperglycemia possible related to d5w, her hemoglobin A1c 5.9 , patient was advised for dm diet and follow up with pcp outpatient . Above management discussed with the patient detail length she understand and adenoid with the above plan, time spent 40 minute. Time Attestation Total time managing care of this patient today: 40 mintues. Discharge Coordination Time (in mins): 40 min Quality: Safe Use of Opioids Does Pt have an Active Cancer Diagnosis on the Problem List?: No Quality: Stroke Does the patient have a stroke diagnosis?: No Physical Exam Vital Signs: Vital Signs: Last Vital Signs Temp 97.2 F 11/02/23 07:55 Pulse 79 11/02/23 07:55 Resp 18 11/02/23 07:55 BP 134/72 11/02/23 07:55 Pulse Ox 93 11/02/23 07:55 O2 Del Method Room Air 11/02/23 07:55 BMI result Body Mass Index 35.7 Appearance: Alert.? Oriented X3.? cvs: rrr, [id number] , no murmur res: clear to auscultation ,no rhonchii or wheezing abd: no rebound or guarding ,nt, bs present. ext pulses present , no cyanosis . neuro: axo3 , nonfocal. DS: Data Data Completed and Pending Labs on day of discharge: Laboratory Results - last 24 hr 11/02/23 09:58 Hold Purple Top SEE NOTE Sodium 144 Potassium 3.8 Chloride 107 Carbon Dioxide 24 Anion Gap 17 BUN 13 Creatinine 1.13 Estim Creat Clear Calc 54.6 Estimated GFR 50 Random Glucose 240 H Calcium 9.7 Discharge Plan Discharge Anticipated Discharge Date/Time: 11/02/23 11:39 Patient Disposition: Home, Self-Care Discharge Diagnosis: Hyponatremia, JORGE Referrals: Yoshi Dotson MD [Primary Care Provider] - 1 Week Discharge Medications: Continued divalproex 250 mg tablet,delayed release (DR/EC) 250 mg PO DAILY levothyroxine 50 mcg tablet 50 mcg PO DAILY@0600 lovastatin 20 mg tablet 20 mg PO DAILY acetaminophen 325 mg Tablet 650 mg PO Q6H PRN (Reason: Pain) divalproex 250 mg tablet,delayed release (DR/EC) 500 mg PO BEDTIME quetiapine 200 mg tablet 200 mg PO BEDTIME quetiapine 300 mg tablet extended release 24 hr 300 mg PO BEDTIME cholecalciferol (vitamin D3) [Vitamin D3] 50 mcg (2,000 unit) Tablet 50 mcg PO DAILY Discharge Orders: Discharge Order (Routine); Ordered 11/02/23 Ordered By: Danielle Ogden Diet: Diabetic diet Activity on Discharge: As tolerated Stand Alone Forms: Patient Portal Discharge page Print Language: Mauritian Other Ambulatory Orders: Basic Metabolic Panel (Routine) Timeframe: 1 Week Facility: [facility] - Location: Laboratory Ordered By: Danielle Ogden Hemoglobin A1c (Routine) Timeframe: 1 Week Facility: [facility] - Location: Laboratory Ordered By: Danielle Ogden Care Plan Goals: Patient admitted for decreased p.o. intake, dehydration, JORGE, hypernatremia: Started on Ivf , monitor electrolytes closely as well as renal function, also Nephrology evaluated the patient. Was still has electrolyte abnormalities indicate secondary to dehydration which seems to be improved with hydration. Patient was strongly advised for p.o. hydration and oral intake patient agrees. Monitor BMP out patiently in 1 week with PCP. Patient also had mild hyperglycemia possible related to d5w, her hemoglobin A1c 5.9 , patient was advised for dm diet and follow up with pcp outpatient . Health Concerns: As above. Plan of Treatment: As above. Assessment: As above.
--- NOTE | 2023-11-02 11:53 | MHC.CM.PN ---
PT WILL RETURN TO [facility] TO TRANSPORT
[2023-11-02 11:56] LABS: Estimated Average Glucose 123 mg/dL; Hemoglobin A1c % 5.9 % (<6.0)
[2023-11-02 12:00] VITALS: BP 135/75; PULSE 95; RESP 18; TEMP 36.3; O2SAT 95
== END 2023-11-02 14:15 | disposition home or self-care (01) | DRG 641 ==
LOC: HO.ED 14:00 → HO.EDOVER 17:51 → HO.IMC 19:35
PROVIDERS: Registered Nurse Emergency; Admitting Provider Internal Medicine; Emergency Provider Emergency Medicine; PCP Internal Medicine; Visit Provider Internal Medicine
DX: E87.0 Hyperosmolality and hypernatremia (principal); N17.9 Acute kidney failure, unspecified; E86.1 Hypovolemia; F31.9 Bipolar disorder, unspecified; E78.00 Pure hypercholesterolemia, unspecified; R73.9 Hyperglycemia, unspecified; E86.0 Dehydration; G40.909 Epilepsy, unspecified, not intractable, without status epilepticus; E03.9 Hypothyroidism, unspecified; Z87.891 Personal history of nicotine dependence; Z79.890 Hormone replacement therapy; Z79.899 Other long term (current) drug therapy
CPT/HCPCS: 36415; 80048; 80053; 82436; 83036; 83735; 83930; 83935; 84100; 84133; 84295; 84300; 84443; 85025; 93005; 99285; J1650

== ENCOUNTER → 2023-10-30 10:59 | Outpatient (BNV) | payer MEDICARE, SELFPAY | PROVIDERS: Admitting Provider Internal Medicine; Emergency Provider Emergency Medicine; PCP Internal Medicine; Visit Provider Internal Medicine | DX: R00.0 Tachycardia, unspecified (principal) | CPT/HCPCS: 93010 ==

== ENCOUNTER → 2023-10-30 17:39 | Outpatient (BNV) | payer MEDICARE, SELFPAY | PROVIDERS: Admitting Provider Internal Medicine; Emergency Provider Emergency Medicine; PCP Internal Medicine; Visit Provider Internal Medicine | DX: N17.9 Acute kidney failure, unspecified (principal); E86.0 Dehydration; E87.0 Hyperosmolality and hypernatremia | CPT/HCPCS: 99222; 99232; 99239 ==

== ENCOUNTER → 2023-10-30 17:39 | Outpatient (BNV) | payer MEDICARE, SELFPAY | PROVIDERS: Admitting Provider Internal Medicine; Emergency Provider Emergency Medicine; PCP Internal Medicine; Visit Provider Internal Medicine Nephrology | DX: N17.9 Acute kidney failure, unspecified (principal); E87.0 Hyperosmolality and hypernatremia | CPT/HCPCS: 99222 ==

== ENCOUNTER 2023-12-16 15:51 | Outpatient (REF) | payer MEDICARE, SELFPAY ==
[2023-12-16 16:10] LABS: MANUAL DIFF FLAG NO
[2023-12-16 17:19] LABS: Basophils Percent Auto 0.6 % (0-2); Eosinophils Absolute Auto 0.1 X10*3/uL (0.0-0.4); Eosinophils Percent Auto 1.1 % (0-4); Hematocrit 40.2 % (37.0-47.0); Hemoglobin 13.1 g/dl (12.0-16.0); Imm Gran Abs Auto 0.02 X10*3/uL (0.00-0.03); Imm Gran Pct Auto 0.3 % (0.0-0.4); Lymphocytes Percent Auto 40.7 % (20-40); Mean Corpuscular HGB Conc 32.6 g/dl (31.0-35.0); Mean Platelet Volume 10.5 fL (9.4-12.3); Monocytes Absolute Auto 0.6 X10*3/uL (0.1-1.2); Monocytes Percent Auto 8.3 % (2-11); Neutrophils Absolute Auto 3.6 x10*3/uL (2.0-8.3); Platelet Count 199 X10*3/uL (160-400); Red Blood Count 4.37 X10*6/uL (4.20-5.50); Red Cell Distribution Width 12.7 % (11.0-16.0); White Blood Count 7.3 X10*3/uL (4.8-10.8)
[2023-12-16 18:31] LABS: Alanine Aminotransferase 9 U/L (0-31); Albumin Level 4.2 g/dL (3.5-5.0); Alkaline Phosphatase 86 U/L (39-117); Anion Gap 17 (12-20); Aspartate Amino Transferase 16 U/L (5-31); Bilirubin Total 0.2 mg/dL (0.0-1.0); Blood Urea Nitrogen 13 mg/dL (9-16); Calcium 10.2 mg/dL (8.4-10.2); Carbon Dioxide 25 mmol/L (22-29); Chloride 104 mmol/L (96-108); Estimated Glomerular Filt Rate 57; Glucose Random 87 mg/dL (60-115); Magnesium 2.2 mg/dL (1.6-2.6); Potassium 4.7 mmol/L (3.3-5.1); Sodium 141 mmol/L (135-145); Total Protein 7.2 g/dL (6.5-8.0)
[2023-12-16 18:46] LABS: Free T4 (Free Thyroxine) 0.74 ng/dL (0.71-1.85); Thyroid Stimulating Hormone 1.07 uIU/mL (0.32-4.0)
[2023-12-17 05:30] LABS: Estimated Average Glucose 123 mg/dL; Hemoglobin A1c % 5.9 % (<6.0)
== END 2023-12-16 15:52 | disposition home or self-care (01) ==
LOC: HO.LAB 15:51
PROVIDERS: PCP Internal Medicine; Visit Provider Internal Medicine
DX: E11.9 Type 2 diabetes mellitus without complications (principal); R56.9 Unspecified convulsions; E87.1 Hypo-osmolality and hyponatremia; E03.9 Hypothyroidism, unspecified
CPT/HCPCS: 36415; 80053; 83036; 83735; 84439; 84443; 85025

== ENCOUNTER 2024-08-13 15:36 | Outpatient (AMB) | payer MEDICARE, SELFPAY ==
--- NOTE | 2024-08-13 15:07 | MHC.PC.OV ---
Vital Signs 08/13/24 15:55 Height 5 ft 1 in Weight 190 lb BMI 35.9 BP 126/74 Blood Pressure Location Rt brachial Position Sitting Pulse 80 Pulse Source Pulse Oximeter Temp 97 F Temp Source Axillary Pulse Oximetry (%) 98 Oxygen Delivery Method Room Air Intake Visit Reasons: Routine - see comments Accompanied by: caregiver Allergies meropenem [From MERREM] Allergy (Unknown, Verified 08/13/24 16:00) UNKNOWN Penicillins [PENICILLINS] Allergy (Unknown, Verified 08/13/24 16:00) UNKNOWN Sulfa (Sulfonamide Antibiotics) [SULFA(SULFONAMIDE ANTIBIOTICS)] Allergy (Unknown, Verified 08/13/24 16:00) UNKNOWN SHELLFISH Allergy (Unknown, Uncoded 10/30/23 10:59) UNKNOWN Medication List - Last Reconciled 08/13/24 by Trisha Schneider MD acetaminophen 650 mg PO Q6H PRN alcohol swabs 1 pad topical QIDACHS blood sugar diagnostic (FreeStyle Lite Strips) Test four times a day or as directed. blood-glucose meter (FreeStyle Lite Meter kit) As Directed cholecalciferol (vitamin D3) (Vitamin D3) 50 mcg PO DAILY divalproex 250 mg orally 250 tab in the morning and 500 mg in the evening; lancets (FreeStyle Lancets) Test four times a day or as directed. levothyroxine 50 mcg PO DAILY@0600 lovastatin 20 mg PO DAILY quetiapine 200 mg PO BEDTIME quetiapine ER 300 mg PO BEDTIME Tobacco use date assessed: 08/13/24 Dental Screening Dental Screen Date: 08/13/24 Did you have a dental visit in the last 12 months?: Yes Did you have a dental problem in the last 6 months where you did not have access to dental care?: No HPI HPI Comments History of Present Illness Details 58 year old female with a past medical history of prediabetes, hypothyroid, SIADH, CKD, URI, CKD, seizure disorder presenting for follow up. Last seen by pcp in February. Here with her caregiver Previously seeing Dr Avitia for SIADH. [facility] in [place]-psychiatry and counselor. 03/2023-colonoscopy 5 year repeat ROS CONSTITUTIONAL: Denies weight loss, fever and chills. HEENT: Denies changes in vision and hearing. RESPIRATORY: Denies SOB and cough. CV: Denies palpitations and CP GI: Denies abdominal pain, nausea, vomiting and diarrhea. : Denies dysuria and urinary frequency. MSK: Denies new myalgia and joint pain. SKIN: Denies rash and pruritus. NEUROLOGICAL: Denies headache PSYCHIATRIC: Denies recent changes in mood. PHYSICAL EXAM: GENERAL: Alert and oriented x 3. NAD EYES: EOMI. Anicteric. HENT: Moist mucous membranes. No scleral icterus. No cervical lymphadenopathy. LUNGS: Clear to auscultation bilaterally. CARDIOVASCULAR: Regular rate and rhythm. No murmur. No JVD. ABDOMEN: Soft, non-tender +bs EXTREMITIES: No edema. Non-tender. SKIN: No rashes or lesions. Warm. NEUROLOGIC: No focal neurological deficits. CN II-XII grossly intact PSYCHIATRIC: Cooperative. Appropriate mood and affect [facility] Medical History (Updated 08/16/24 @ 14:33 by Trisha Schneider MD) Hyponatremia Seizures Bipolar disorder Hypothyroid Elevated cholesterol Cerebral aneurysm Surgical History Hx of tracheostomy Hx of brain surgery Hx of tubal ligation History of left mastoidectomy H/O colonoscopy (~04/05/23) Family History (Updated 08/13/24 @ 16:03 by Rama Song MA) Mother No problems noted. Father No problems noted. Social History Household Members: Caregiver Household Members Other:: lives with [facility] caregiver Housing: House Are you a primary rn acute care to a significant other at home: No Do you presently have visiting nurse or other home services: Yes Patient Tobacco Use Status: Former Tobacco user Tobacco use type: Cigarette e-Cigarette/Vaping Use: Former Use Advance Directives Date on File: 11/06/11 service: No Current occupational status: unemployed Cognitive needs: No Hearing needs: No Vision needs: Yes (rx glasses) Questionnaire PHQ-9 Over the last 2 weeks, how often have you been bothered by any of the following problems? 1. Little interest or pleasure in doing things: not at all 2. Feeling down, depressed, or hopeless: not at all 3. Trouble falling or staying asleep, or sleeping too much: not at all 4. Feeling tired or having little energy: not at all 5. Poor appetite or overeating: not at all 6. Feeling bad about yourself - or that you are a failure or have let yourself or your family down: not at all 7. Trouble concentrating on things, such as reading the newspaper or watching television: not at all 8. Moving or speaking so slowly that other people could have noticed. Or the opposite - being so fidgety or restless that you have been moving around a lot more than usual: not at all 9. Thoughts that you would be better off or of hurting yourself in some way: not at all Total score: 0 Depression Screening Interpretation: Negative Depression Screening Done: Yes 31926 - PHQ-9 Billing: Yes Source: Developed by Drs. Chico Dolan, Melania Vail, Isaak Duong and colleagues, with an educational amos from [employer]. Thrive Questionnaire Date Thrive assessed: 08/13/24 I am a: Patient Within the past 12 months, did the food you bought not last and you didn't have the money to get more?: Never true Within the past 12 months, did you worry whether your food would run out before you got money to buy more?: Never true Do you have trouble paying for medicines?: No Do you have trouble getting transportation to medical appointments?: No Do you have trouble paying your heating and electricity bill?: No Do you have trouble taking care of your child, family member or friend?: No Do you have trouble with day-to-day activities such as bathing, preparing meals, shopping, managing finances, etc.?: No Are you currently unemployed and looking for a job?: No Are you interested in more education?: No THRIVE Score: 0 AUDIT C Alcohol Use Questionnaire (AUDIT-C) 1. How often do you have a drink containing alcohol?: Never 3. How often do you have six or more drinks on one occasion?: Never Total Score: 0 FILOMENA-7 AMB Questionnaire FILOMENA-7 Date FILOMENA - 7 assessed: 08/13/24 Feeling nervous, anxious, or on edge: 0 = Not at all Not being able to stop or control worryin = Not at all Worrying too much about different things: 0 = Not at all Trouble relaxin = Not at all Being so restless that it is hard to sit still: 0 = Not at all Becoming easily annoyed or irritable: 0 = Not at all Feeling afraid as if something awful might happen: 0 = Not at all Total FILOMENA-7 score (0-4 normal; 5-9 mild; 10-14 moderate; 15-21 severe): 0 Source: Developed by Drs. Chico Dolan, Melania Vail, Isaak Duong and colleagues, with an educational amos from [employer]. Physical exam (Primary Care) Vital Signs: Last Vital Signs Temp 97 F 08/13/24 15:55 Pulse 80 08/13/24 15:55 BP 126/74 08/13/24 15:55 Pulse Ox 98 08/13/24 15:55 Oxygen Delivery Method Room Air 08/13/24 15:55 BMI result Body Mass Index 35.9 Tobacco/Smoking Status: Tobacco use Status Tobacco use date assessed 08/13/24 08/13/24 15:08 Patient Tobacco Use Status Former Tobacco user 08/13/24 15:08 Tobacco use type Cigarette 08/13/24 15:08 e-Cigarette/Vaping Use Former Use 08/13/24 16:04 PHQ-9: PHQ-9 Score PHQ-9: Total score 0 08/13/24 16:24 Depression Screening Interpretation: Negative Thrive Assessment: Date of Thrive Assessment Date Thrive assessed 08/13/24 08/13/24 15:08 Coding Level of Care Code New Pt Level 4 (24600) Diagnoses History of SIADH Z86.39 Hyperglycemia R73.9 Elevated cholesterol E78.00 Hypothyroidism, unspecified type E03.9 Hypothyroidism type: unspecified Additional Codes PHQ-9 - 78709 - PHQ-9 Billing: Yes ([id number]) Assessment & Plan Assessment & Plan (1) History of SIADH: Code(s): Z86.39 - Personal history of other endocrine, nutritional and metabolic disease Category: Medical (2) Hyperglycemia: Code(s): R73.9 - Hyperglycemia, unspecified Category: Medical (3) Elevated cholesterol: Code(s): E78.00 - Pure hypercholesterolemia, unspecified Category: Medical (4) Hypothyroid: Code(s): E03.9 - Hypothyroidism, unspecified Category: Medical Qualifiers: Hypothyroidism type: unspecified Qualified Code(s): E03.9 - Hypothyroidism, unspecified Plan 58 yo to establish care Past medical, surgical,social reviewed Labs ordered BH-stable. follow up with psych Hypothyroid-stable on hypothyroid Orders: Orders Hemoglobin A1c 08/13/24 E03.9 - Hypothyroidism, unspecified, E78.00 - Pure hypercholesterolemia, unspecified, R73.9 - Hyperglycemia, unspecified, Z86.39 - Personal history of other endocrine, nutritional and metabolic disease Complete Blood Count Auto Diff 08/13/24 E03.9 - Hypothyroidism, unspecified, E78.00 - Pure hypercholesterolemia, unspecified, R73.9 - Hyperglycemia, unspecified, Z86.39 - Personal history of other endocrine, nutritional and metabolic disease Comprehensive Met. Panel 08/13/24 E03.9 - Hypothyroidism, unspecified, E78.00 - Pure hypercholesterolemia, unspecified, R73.9 - Hyperglycemia, unspecified, Z86.39 - Personal history of other endocrine, nutritional and metabolic disease Lipid Panel 08/13/24 E03.9 - Hypothyroidism, unspecified, E78.00 - Pure hypercholesterolemia, unspecified, R73.9 - Hyperglycemia, unspecified, Z86.39 - Personal history of other endocrine, nutritional and metabolic disease TSH reflex Free T4 08/13/24 E03.9 - Hypothyroidism, unspecified MM screening mammo BI 08/13/24 Z12.31 - Encounter for screening mammogram for malignant neoplasm of breast Medications: Changed From divalproex 250 mg orally 250 tab in the morning and 500 mg in the evening; To divalproex 250 mg PO TID 270 tabs 0RF
[2024-08-13 15:55] VITALS: BP 126/74; PULSE 80; TEMP 36.1; O2SAT 98; BMI 35.9
--- OUTSIDE RECORDS SUMMARY | 2024-08-13 16:05 | XMS_ITS | Clinical Summary ---
Author Organization [facility] Address [address] [place] [address] Phone Care Team Providers Care Presiding Steward Name Role Phone Yoshi Dotson MD Primary Care Provider [phone] Allergies Active Allergy Reactions Criticality Noted Date Comments Meropenem Other (see comments) 06/09/2020 Penicillins Other (see comments) 06/09/2020 Shellfish Allergy Other (see comments) 06/10/19 Sulfa Antibiotics Other (see comments) 06/10/19 21 Medications Cholecalciferol 125 MCG (5000 UT) tablet Take 1 tablet by mouth 3 (three) times a week Active divalproex (DEPAKOTE) 500 MG 24 hr tablet Take 1 tablet by mouth 1 (one) time each day Active Ibuprofen 200 MG capsule if needed Active levothyroxine (SYNTHROID, LEVOTHROID) 50 MCG tablet Take 1 tablet by mouth at bed time Active lovastatin (MEVACOR) 20 MG tablet Take 1 tablet by mouth 1 (one) time each day Active QUEtiapine (SEROquel) 400 MG tablet Take 1 tablet by mouth at bed time 100 in the morning Active divalproex (DEPAKOTE) 250 MG EC tablet Take 250 mg by mouth in the morning and 250 mg at noon and 250 mg in the evening. 04/06/2021 Active QUEtiapine (SEROquel) 100 MG tablet Take 100 mg by mouth 1 (one) time each day in the morning Active Active Problems Problem Noted Date Diagnosed Date Acute nontraumatic kidney injury 06/09/2020 Hyperosmolality and/or hypernatremia 06/09/2020 Family History Relation Status Comments Father Unknown Mother Unknown Social History Tobacco Use Types Packs/Day Years Used Date Smoking Tobacco: Former Cigarettes Smokeless Tobacco: Former Alcohol Use Standard Drinks/Week Comments No 0 (1 standard drink = 0.6 oz pur e alcohol) Comments Unknown Sex and Gender Information Value Date Recorded Sex Assigned at Not on file Legal Sex Female 5:06 PM EST Gender Identity Not on file Sexual Orientation Not on file Last Filed Vital Signs Vital Sign Reading Time Taken Comments Blood Pressure 114/82 12/28/2020 10:37 AM EDT Pulse 92 12/28/2020 10:37 AM EDT Temperature - - Respiratory Rate - - Oxygen Saturation 98% 12/28/2020 10:37 AM EDT Inhaled Oxygen Concentration - - Weight 76.7 kg (169 lb) 06/29/2021 2:29 PM EDT Height 157.5 cm (5' 2 ) 05/14/2019 12:00 PM EST Body Mass Index 30.91 05/14/2019 12:00 PM EST Plan of Treatment Health Maintenance Due Date Last Done Comments Breast Cancer Screening 1965 Hepatitis B Vaccine (1 of 3 - 19+ 3-dose series) 12/29 Colorectal Cancer Screening: Annual FOBT 2014 Colorectal Cancer Screening: Colonoscopy 2014 Colorectal Cancer Screening: Sigmoidoscopy 2014 Pneumococcal Vaccine: 50+ Years (1 of 1 - PCV) 016 Influenza Vaccine (Season Ended) 2024 Insurance Medicare Medicaid [place] Care Teams Presiding Steward Relationship Specialty Start Date End Date Yoshi Dotson MD [address] [place] [address] [id number] [place], [place] PCP - General 04/18/20
--- OUTSIDE RECORDS SUMMARY | 2024-08-13 16:05 | XMS_ITS ---
Author Name Caleb RAMOS, MS. Myah Mistry Address [address] [place] [id number] Phone [phone] [facility] Care Team Providers Care Honest [employer] Member Name Role Phone Britany Ellis Unavailable [phone] Unavailable Unavailable Unavailable Fern Hurd Unavailable [phone] Nathan Avitia Unavailable [phone] KAYLA HUGHES Unavailable [phone] Reason for Referral Not Available Allergies, adverse reactions, alerts Allergen Type Reaction Severity Status Onset Date Meropenem Allergy to substance (disorder) Unknown Active N/A Penicillins Allergy to substance (disorder) Unknow n Active N/A Sulfa Antibiotics Allergy to substance (disorder) Unknown Active N/A Shellfish Allergy Allergy to substance (disorder) Unknown Active N/A History of medication use Medication Class Instructions Start Date End Date Levothyroxine Sodium 50 MCG Tab TAKE 1 TABLET BY MOUTH EVERY DAY 2022-12-19 No Data Available Lovastatin 20 mg Tab TAKE 1 TABLET BY MO UTH EVERY DAY 2022-12-19 No Data Available QUEtiapine Fumarate ER 300 m g Tab ER 24hr TAKE 1 TABLET BY MOUTH AT EVENING 2022-12-19 No Data Available Divalproex Sodium 250 mg Tab delayed rel 1 tab in AM and 2 tabs in PM 2022-12-19 No Data Available Bisacodyl EC 5 mg Tab delaye d rel No Data Available 2023-01-08 No Data Available Polyethylene Glycol 3350 17 GM/SCOOP Powder DISSOLVE ENTIRE BOTTLE IN LIQUID AND DRINK BY MOUTH AT 5 PM THE DAY BEFORE PROCEDURE 2023-01-08 No Data Available QUEtiapine Fumarate 100 mg Tab one in AM 2023-06-17 No Data Available OneTouch Delica Plus [id number] Miscellaneous DIRECTED TO TEST BLOOD SUGAR FOUR TIMES DAILY 2024-01-21 No Data Available OneTouch Verio Strip TEST FOUR TIMES DAILY 2024-01-21 No Data Available Doxycycline Hyclate 100 mg Cap TAKE 1 CAPSULE BY MOUTH TWICE DAILY 2024-03-02 No Data Available QUEtiapine Fumarate 200 mg Tab TAKE 1 TABLET BY MOUTH AT EVENING 2024-06-09 No Data Available Vitamin D3 10 MCG (400 UNIT) Tab 1 cap PO QD 2024-06-09 No Data Available Problem List Problem Status Onset Date Resolved Date Hypernatremia Inactive 2022-08-17 N/A History of ruptured cerebral aneurysm Inactive 06-11-11 N/A Moderate dementia with mood disturbance, unspecified dementia type, Bipolar depression Active 2022-08-17 N/A Hyperlipidemia Active 2022-08-17 N/A Hypothyroidism Active 2022-08-17 N/A Thrombocytopenia Resolved 2022-08-17 2024-06-09 Type 2 diabetes mellitus wit h stage 3a chronic kidney disease, without long-term current use of insulin Active 2022-08-17 N/A Epilepsy, unspecified, not i ntractable, without status epilepticus Active 2022-08-17 N/A Other problems related to [facility] facilities and other health care Active 2024-06-09 N/A Encounter for health-related screening Active 01-07-03 N/A Encounters Encounters Type Facility Date of Service Diagnosis/Co mplaint New patient, 30-44min 1 stable chronic or 2 minor; add modifier 95 for video, modifier 93 for [facility]/2022 Nontraumatic subarachnoid hemorrhage from unsp intracran artUnspecified dementia without behavioral disturbanceHyperlipidemia, unspecifiedHypothyroidism, unspecifiedBipolar disorder, unspecifiedHyperosmolality and hypernatremiaChronic kidney disease, stage 3bThrombocytopenia, unspecifiedEpilepsy, unspecified, not intractable, without status epilepticus New patient, 30-44min 1 stable chronic or 2 minor; add modifier 95 for video, modifier 93 for [facility]/20[place] New patient, 30-44min 1 stable chronic or 2 minor; add modifier 95 for video, modifier 93 for [facility]/20[place] New patient, 30-44min 1 stable chronic or 2 minor; add modifier 95 for video, modifier 93 for [facility] 08/[place]/2022 New patient, 30-44min 1 stable chronic or 2 minor; add modifier 95 for video, modifier 93 for phone [facility]2022 New patient, 30-44min 1 stable chronic or 2 minor; add modifier 95 for video, modifier 93 for phone [facility] New patient, 30-44min 1 stable chronic or 2 minor; add modifier 95 for video, modifier 93 for phone [facility]20[place] New patient, 30-44min 1 stable chronic or 2 minor; add modifier 95 for video, modifier 93 for phone [facility] New patient, 30-44min 1 stable chronic or 2 minor; add modifier 95 for video, modifier 93 for phone [facility]20[place] Estab. patient 30-39min; chronic exacerbation, 2 stable chronic or 1 acute illness add add modifier 95 for video, (do not use for phone, instead use [id number]) [facility] 06/17/2023 Nontraumatic subarachnoid hemorrhage from unsp intracran artUnspecified dementia without behavioral disturbanceHyperlipidemia, unspecifiedHypothyroidism, unspecifiedBipolar disorder, unspecifiedChronic kidney disease, stage 3bThrombocytopenia, unspecifiedEpilepsy, unspecified, not intractable, without status epilepticusOther problems related to medical facilities and other health care Estab. patient 30-39min; chronic exacerbation, 2 stable chronic or 1 acute illness add add modifier 95 for video, (do not use for phone, instead use 20337-26) [facility]17/20[place] Estab. patient 30-39min; chronic exacerbation, 2 stable chronic or 1 acute illness add add modifier 95 for video, (do not use for phone, instead use 24885-36) [facility] 06[place]17/2023 Estab. patient 30-39min; chronic exacerbation, 2 stable chronic or 1 acute illness add add modifier 95 for video, (do not use for phone, instead use 96584-88) [facility] ([place] 06[place]17/2023 Estab. patient 30-39min; chronic exacerbation, 2 stable chronic or 1 acute illness add add modifier 95 for video, (do not use for phone, instead use 96808-24) [facility]17/2023 Estab. patient 30-39min; chronic exacerbation, 2 stable chronic or 1 acute illness add add modifier 95 for video, (do not use for phone, instead use 26424-89) [facility] 06[place]17/2023 Estab. patient 30-39min; chronic exacerbation, 2 stable chronic or 1 acute illness add add modifier 95 for video, (do not use for phone, instead use 61612-21) [facility] 06/17/2023 Estab. patient 30-39min; chronic exacerbation, 2 stable chronic or 1 acute illness add add modifier 95 for video, (do not use for phone, instead use 69310-29) [facility] 06/17/2023 Estab. patient 20-29min; 1 stable chronic or 2 minor; add add modifier 95 for video, modifier 93 for phone [facility]09/2024 Unspecified dementia, modera te, with mood disturbanceBipolar disorder, unspecifiedHyperlipidemia, unspecifiedHypothyroidism, unspecifiedEpilepsy, unspecified, not intractable, without status epilepticusOther problems related to medical facilities and other health careType 2 diabetes mellitus with diabetic chronic kidney diseaseChronic kidney disease, stage 3aEncounter for screening, unspecified Estab. patient 20-29min; 1 stable chronic or 2 minor; add add modifier 95 for video, modifier 93 for phone [facility]/09/2024 Estab. patient 20-29min; 1 stable chronic or 2 minor; add add modifier 95 for video, modifier 93 for phone [facility]/09/20[place] Estab. patient 20-29min; 1 stable chronic or 2 minor; add add modifier 95 for video, modifier 93 for phone [facility]/09/20[place] Estab. patient 20-29min; 1 stable chronic or 2 minor; add add modifier 95 for video, modifier 93 for phone [facility]/09/20[place] Estab. patient 20-29min; 1 stable chronic or 2 minor; add add modifier 95 for video, modifier 93 for phone [facility]/09/2024 Estab. patient 20-29min; 1 stable chronic or 2 minor; add add modifier 95 for video, modifier 93 for phone [facility]/09/2024 Estab. patient 20-29min; 1 stable chronic or 2 minor; add add modifier 95 for video, modifier 93 for phone [facility]/09/2024 Estab. patient 20-29min; 1 stable chronic or 2 minor; add add modifier 95 for video, modifier 93 for phone [facility] 06/09/2024 Vital Signs Date of Collection Vitals 2022-08-16 13:28:19 Height - 154.94 cmWe ight - 83.92 kgBody Mass Index (BMI) - 34.96 kg/m2BP Diastolic - 80.0 mm[Hg]BP Systolic - 140.0 mm[Hg] 2023-06-17 15:24:03 Weight - 83.92 kgBod y Mass Index (BMI) - 34.96 kg/m2BP Diastolic - 60.0 mm[Hg]BP Systolic - 96.0 mm[Hg]Pain Scale - 0.0 {score} 2024-06-09 13:44:34 Height - 157.48 cmWe ight - 83.92 kgBody Mass Index (BMI) - 33.84 kg/m2BP Diastolic - 60.0 mm[Hg]BP Systolic - 110.0 mm[Hg]Pain Scale - 5.0 {score} Social History Social History Social History Observation Description Effec tive Time Current Smoking Status Former smoker 8 Sex Female Gender identity Woman History of Procedures Procedures Service Procedure code Service date Servicing provider Phone# New patient, 30-44min 1 stable chronic or 2 minor; add modifier 95 for video, modifier 93 for phone [id number] 2022-08-16 No Data Available No Data Available BMI obtained (3008F) 3008F 2022-08-16 No Data Availab le No Data Available Advance care planning discussed and documented in the medical record ? beneficiary/patient did not wish to or was unable to provide an advance care plan or name a surrogate decision-maker. (1124F) 1124F 2022-08-16 No Data Available No Data Availa ble SBP >= 140 3077F 2022-08-16 No Data Available No Data Available DBP 80-89 (3079F) 3079F 2022-08-16 No Data Available No Data Available Functional Status Assessed (1170F) 1170F 2022-08-16 No Data Available No Data Avail able Medication List Documented (1159F) 1159F 2022-08-16 No Data Available No Data Malu ilable Medication Review by prescribing provider or pharmacist documented (1160F) 1160F 2022-08-16 No Data Available No Data Malu ilable Advance Care Directive Advance care planning discussion documented in the medical record (1158F) 1158F 2022-08-16 No Data Available No Data Availa ble Estab. patient 30-39min; chronic exacerbation, 2 stable chronic or 1 acute illness add add modifier 95 for video, (do not use for phone, instead use [id number]) 25259 2023-06-17 No Data Available No Data Availa ble Medication List Documented (1159F) 1159F 2023-06-17 No Data Available No Data Malu ilable Medication Review by prescribing provider or pharmacist documented (1160F) 1160F 2023-06-17 No Data Available No Data Malu ilable Pain Assessment - NO pain present (1126F) 1126F 2023-06-17 No Data Available No Data A vailable BMI obtained (3008F) 3008F 2023-06-17 No Data Availab le No Data Available SBP < 130 (3074F) 3074F 2023-06-17 No Data Available No Data Available DBP <80 (3078F) 3078F 2023-06-17 No Data Available No Data Available Functional Status Assessed (1170F) 1170F 2023-06-17 No Data Available No Data Avail able Estab. patient 20-29min; 1 stable chronic or 2 minor; add add modifier 95 for video, modifier 93 for phone 31991 2024-06-09 No Data Available No Data Availa ble Medication List Documented (1159F) 1159F 2024-06-09 No Data Available No Data Malu ilable Medication Review by prescribing provider or pharmacist documented (1160F) 1160F 2024-06-09 No Data Available No Data Malu ilable Functional Status Assessed (1170F) 1170F 2024-06-09 No Data Available No Data Avail able Advance Care Directive Advance care planning discussion documented in the medical record (1158F) 1158F 2024-06-09 No Data Available No Data Availa ble Advance care planning discussed and documented ? advance care plan or surrogate decision-maker was documented in the medical record. (1123F) 1123F 2024-06-09 No Data Available No Data Availa ble Pain Assessment - Pain Documented on a Pain Scale (1125F) 1125F 2024-06-09 No Data Available No Data Malu ilable SBP < 130 (3074F) 3074F 2024-06-09 No Data Available No Data Available DBP <80 (3078F) 3078F 2024-06-09 No Data Available No Data Available Functional Status Functional Category Effective Dates Cognition Status: Dementia - moderate (needs ADL assistance)? ? ,Recall 2/3 unrelated words at 3 minutes 2024-06-09 ADL: Bathing Independent , D ressing Independent , Eating Independent , Ambulation Independent , Transferring Independent and Toileting Independent 2024-06-09 IADL: Medication Needs Kandice tance , Meal Prep Needs Assistance , Shopping Needs Assistance , Driving or Public Transport Needs Assistance , Housework Needs Assistance , Finances Needs Assistance 2024-06-09 How many falls within the last 6 months? None 2024-06-09 Near falls within the last 6 months? Non e 2024-06-09 Do you feel unsteady on your feet? No 01-07-03 Do you worry about falling? No 4 DME used with ambulation: None 4 Social Supports - # of Inter actions with Friends/Family in a typical week: 2024-06-09 Mental Status Status Date Cognition Status: Dementia - moderate (needs ADL assistance),Recall 2/3 unrelated words at 3 minutes 2024-06-09 Assessments Date of Service Assessments 2022-08-16 13:28:19 Ruptured cerebral aneurysmDementiaHyperlipidemiaHypothyroidismBipolar disorder with depressionHypernatremiaChronic kidney disease, stage 3bThrombocytopeniaSeizure disorder 2023-06-17 15:24:03 Other problems relat ed to medical facilities and other health careRuptured cerebral aneurysmDementiaHyperlipidemiaHypothyroidismBipolar disorder with depressionChronic kidney disease, stage 3bThrombocytopeniaSeizure disorder 2024-06-09 13:44:34 Moderate dementia wi th mood disturbance, unspecified dementia type, Bipolar depressionHyperlipidemiaHypothyroidismType 2 diabetes mellitus with stage 3a chronic kidney disease, without long-term current use of insulinEpilepsy, unspecified, not intractable, without status epilepticusOther problems related to medical facilities and other health careEncounter for health-related screening Plan of Care Date of Service Plans 2022-08-16 13:28:19 BMI obtained (3008F) SBP >= 140DBP 80-89 (3079F)Televideo new patient, 30-44min 1 stable chronic or 2 minor; add modifier 95Advance care planning discussed and documented ? advance care plan or surrogate decision-maker was documented in the medical record. (1123F)Advance care planning discussed and documented in the medical record ? beneficiary/patient did not wish to or was unable to provide an advance care plan or name a surrogate decision-maker. (1124F)Continue to see PCP. Follow-up with [facility] as needed for any acute or disease education needs that may arise 29/10.multiple surgeries for thishx seizures post this cont on divalproex sodiumneuro FUearly onsetlois is 24 hr caregiverfu w neurosupportive care/mtrglovastatinmtr lipidslow cholesterol dietlevothyroxinemtr tsh t3t4fu w endocont quetiapinefu w psychdenies SIhx of thismultiple hospitalizations mtr nalow na dietgfr 50renally dose medsmtr labsfu w mdmtr cbcmr labsfu w mdbeen years since last seizurerecent eeg did show seizure activitywill cont divalproex mtr labsfu w neuroeeg as ordered 2023-06-17 15:24:03 Medication Review by prescribing provider or pharmacist documented (1160F)Medication List Documented (1159F)Functional Status Assessed (1170F)Advance Care Directive Advance care planning discussion documented in the medical record (1158F)BMI obtained (3008F)SBP < 130 (3074F)DBP <80 (3078F)Televideo 30-39min; chronic exacerbation, 2 stable chronic or 1 acute illness add modifier 95Advance care planning discussed and documented ? advance care plan or surrogate decision-maker was documented in the medical record. (1123F)Pain Assessment - NO pain documented (1126F)Continue to see PCP. Follow-up with [facility] as needed for any acute or disease education needs that may arise.<Add contingency plans here>multiple surgeries for thishx seizures post this cont on divalproex sodiumneuro FUearly onsetlois is 24 hr caregiverfu w neurosupportive care/mtrglovastatinmtr lipidslow cholesterol dietlevothyroxinemtr tsh t3t4fu w endocont quetiapinefu w psychdenies SIgfr 50renally dose medsmtr labsfu w mdmtr cbcmr labsfu w mdbeen years since last seizurerecent eeg did show seizure activitywill cont divalproex mtr labsfu w neuroeeg as ordered 2024-06-09 13:44:34 Functional Status As sessed (1170F)Advance Care Directive Advance care planning discussion documented in the medical record (1158F)Advance care planning discussed and documented ? advance care plan or surrogate decision-maker was documented in the medical record. (1123F)SBP < 130 (3074F)DBP <80 (3078F)Estab. patient 20-29min; 1 stable chronic or 2 minor; add add modifier 95 for video, modifier 93 for phoneMedication List Documented (1159F)Medication Review by prescribing provider or pharmacist documented (1160F)Pain Assessment - Pain Documented on a Pain Scale (1125F)BMI obtained (3008F)Continue to see PCP. Follow-up with [facility] as needed for any acute or disease education needs that may arise.early onsetlois is 24 hr caregiverfu w neurosupportive care/mtrgcont quetiapinefu w psychdenies SI06/09/24: PMQ-9 score: 14Managed with divalproex, quetiapine. Continue medications as directed. Encouraged relaxation, reassurance, and redirection techniques as needed. Increase physical activities as tolerated. Maintain safety and fall precautions. Follow up with psychiatrist as indicated.lovastatinmtr lipidslow cholesterol diet06/09/24: Continue medications as directed. Encouraged diet and weight management. Discussed importance of routine labs and physical exams. Increase physical activities as tolerated. Maintain safety and fall precautions. Follow up with PCP as indicated.levothyroxinemtr tsh t3t4fu w endo06/09/24: Continue medications as directed. Encouraged diet and weight management. Discussed importance of routine labs and physical exams. Increase physical activities as tolerated. Maintain safety and fall precautions. Follow up with PCP as indicated.gfr 50renally dose medsmtr labsfu w md06/09/24: eGFR: 56 (per [facility] records 2022).No antidiabetic medications at this time. BG ranges 90s-140s. Avoid NSAIDs and nephrotoxic meds. Increase oral fluid intake as tolerated. Discussed importance of routine labs and physical exams as directed. Maintain safety and fall precautions. Follow up with PCP, senior gl accountant as indicated.been years since last seizurerecent eeg did show seizure activitywill cont divalproex mtr labsfu w neuroeeg as ordered06/09/24: Last seizure over 15 years.Continue medications as directed. Encouraged relaxation, reassurance, and redirection techniques as needed. Discussed importance of routine labs and physical exams. Increase physical activities as tolerated. Maintain safety and fall precautions. Follow up with PCP as indicated.PSYCH CONTINGENCY PLANLast updated: 06/09/2024Member to call for the following symptoms: Agitation/ Hallucinations/ RestlessnessPlanned intervention: Contact mental health professional:/ Transfer member to [address] [place] [address]/ Haloperidol 0.5mg PO q8h PRN agitation/ Hydroxyzine (Vistaril) 25mg PO q6h PRN anxiety/ Remind member of breathing exercises/ Encourage use of home medication:/ Increase dose of current medication:/ Limit extra stimulation.Requesting assistance locating breast cancer screening center. Task placed for [facility] to assist. Encouraged routine health screening and physical exams as directed. Follow up as indicated. Goals Date Goal 2024-06-09 Remember to follow u p with PCP and specialists as directed.Call if you have any questions, comments, or concerns.Keep taking your medications as prescribed. Health Concerns Date Concern 2024-06-09 Visit completed carolyn leon audio/video. Patient/Guardian agreed to visit via telehealth. Caregiver, Rosa M present to assist with visit. Today, patient has chief complaint of: follow up care and comprehensive review.Reviewed Allergies, Medications, Active Medical conditions, past medical/surgical history, Social history. 2024-06-09 Advance Care Plan Co nversationDate of Conversation: 06/09/2024Life Limiting Diagnosis: Currently on Hospice NoCode Status: YES CPR: Attempt ResuscitationGoals of Care: Curative: Attempt to sustain life by all medically effective meansNutrition goals: Feeding through new or existing surgically placed tube is ok Do you have a Durable Power of Tool Room Attendant for Healthcare, or Healthcare Proxy Or Guardianship? SELECTIf so, Who? Rosa M Patel, CaregiverDo you have a written Advance Directive? Has Advance DirectiveOther details of discussion: (Who was present, patients description of wishes/goals)Today's plan: Advised patient to discuss wishes with [id number] : AD or surrogate was documented in the medical record. 2024-06-09 Most recent hospital stay(s) or ER visit(s) and precipitating factors: 2024-06-09 Most recent hospital stay(s) or ER visit(s) and precipitating factors: None recently reported in the past six months. 2024-06-09 Open HEDIS Measure ranjan carlson: Reviewed
--- OUTSIDE RECORDS SUMMARY | 2024-08-13 16:05 | XMS_ITS ---
Author Organization [facility] Address [address] [place] [address] Care Team Providers Care Long Chain Beamer Name Role Phone Yoshi Dotson MD Primary Care Provider Chico Ramon Unavailable [phone] REASON FOR VISIT screening,hx polyps Problems Problem Type SNOMED Code ICD Code Onset Dates Problem Status W/U Status Risk Notes Problem History of polyp of colon (situation) (477271970) Personal history of colonic polyps (Z86.010) Active confirmed Problem Diverticular disease of colon (999534609) Diverticulosis of large intestine without perforation or abscess without bleeding (K57.30) Active confirmed Encounters Encounter Location Date Provider Diagnosis [facility] Outpatient [address] [place] [phone] 04/05/2023 Chico Ratna Encounter for scre ening colonoscopy Z12.11 ; Personal history of colonic polyps Z86.010 ; Diverticulosis of large intestine without perforation or abscess without bleeding K57.30 and Other hemorrhoids K64.8 Assessments Encounter Date Diagnosis (ICD Code) Assessment Notes Treatment Notes Treatment Clinical Notes Section Notes 04/05/2023 Encounter for screening colonoscopy (ICD-10 - Z12.11) 04/05/2023 Personal history of colonic polyps (ICD-10 - Z86.010) 04/05/2023 Diverticulosis of large intestine without perforation or abscess without bleeding (ICD-10 - K57.30) 04/05/2023 Other hemorrhoids (ICD-10 - K64.8) Plan Of Treatment No Information Progress Notes * KIMBERLY SAAVEDRA MDOB:1965 (58 yo F)Acc No.[id number]:04/05/2023 COLON WITH MAC Patient:?KIMBERLY SAAVEDRA Provider:?Chico Segundo MD :1965???Age:57 Y???Sex:Female D ate:04/05/2023 Address:[address] [place] [address] [id number] Pcp:Yoshi Dotson MD Subjective: * Chief Complaints: * ???1. Screening,hx polyps. * Medical History:? Objective: * Vitals:? Assessment: * Assessment: 1.?Encounter for screening c olonoscopy - Z12.11 (Primary)???2.?Personal history of colonic polyps - Z86.010???3.?Diverticulosis of large intestine without perforation or abscess without bleeding - K57.30???4.?Other hemorrhoids - K64.8??? Plan: * Treatment: * Procedure Codes:?18542 DIAGN OSTIC COLONOSCOPY * * The named appointment provid er may or may not be the originator of this progress note, and it is not deemed complete until electronically signed by the appointment provider. Sign off status: Pending * Provider:?Chico Segundo MD Date:? 023 Generated for Aleksandar khanna/Joyce/eTfostersmitting on:?08/13/2024 04:04 PM EDT
--- OUTSIDE RECORDS SUMMARY | 2024-08-13 16:05 | XMS_ITS | Patient Health Record ---
Author Organization [facility] Address [address] [place] [address] Care Team Providers Care Satellite Dish Repairer Name Role Phone Yoshi Dotson MD Primary Care Provider Chico Ramon Unavailable [phone] Allergies Allergen (clinical drug ingredient) Drug/Non Drug Allergy documented on EMR Reaction Allergy Type Onset Date Status Shellfish (FN) shell fish (uncoded) Unknown Allergy Active merrem (uncoded) Unknown Allergy Act salo Substance with sulfonamide structure and antibacterial mechanism of action (substance) sulfa (uncoded) Unknown Allergy Active penicillin (uncoded) Unknown Allergy Active Reason For Referral No Information Medications Medication SIG (Take, Route, Frequency, Duration) Notes Start Date End Date Status MiraLax (colon prep) 17 GM/SCOOP 1 238 Gm bottle of mixed with Gatorade or Crystal Light Orally begin at 5:00 p.m. the day before the procedure for 1 day 01/07/2023 Active Vitamin D Active Dulcolax (colon prep) 5 MG take at 3:00 p.m and 7:00p.m. Orally two tablets twice a day for one day for 1 day 01/07/2023 Active Depakote ER 250 MG 3 tabs Orally at hs Active QUEtiapine Fumarate 100 MG TAKE 1 TABLET BY MOUTH EVERY MORNING Oral for 90 Active Divalproex Sodium 250 MG TAKE 1 TABLET B Y MOUTH THREE TIMES DAILY Oral for 90 Active Lovastatin 20 MG Orally Act salo Levothyroxine Sodium 50 MCG 1 tablet in the morning on an empty stomach Orally Once a day Active Immunizations Vaccine Route Administration Date Status Comme nts Influenza Unknown 12/08/2015 Administered Social History Tobacco Use: Social History Observation Description Date Details (start date - stop date) Former Smoker NA - NA Tobacco Use/Smoking Question Answer Notes Patient is a former smoker How long has it been since you last smoked? 1-5 years Alcohol Screen Question Answer Notes Did you have a drink containing alcohol in the p ast year? No Points 0 Interpretation Negative Section Notes: Smoker-7 cigs QD; no alcohol Quit smoking 4 years ago; no alcohol Problems Problem Type SNOMED Code ICD Code Onset Dates Problem Status W/U Status Risk Notes Problem 136451770 Colon cancer screening (Z12.11) Active confirmed Problem 584417548 Encounter for screening for malignant neoplasm of colon (Z12.11) Active confirmed Problem 877900629 History of adenomatous polyp of colon (Z86.010) Active confirmed Problem Personal history of colonic polyps (Z86.010) Active confirmed Problem Diverticular disease of colon (321466707) Diverticulosis of large intestine without perforation or abscess without bleeding (K57.30) Active confirmed Problem 458810894 Preprocedural examination (Z01.818) Active confirmed Plan Of Treatment Future Test Test Name Order Date COLONOSCOPY 10/04/2016 COLONOSCOPY 12/28/2022 Insurance Providers Payer Name Payer Address Payer Phone Subscriber Number Group Number Insured Name Patient Relationship to Insured Coverage Start Date Coverage End Date [facility] [address] [address] [place] [address] [id number] KIMBERLY SAAVEDRA Self - patient is the insured MEDICAID OF [facility] [address] [place] [address] [id number] KIMBERLY SAAVEDRA Self - patient is the insured Medical (General) History Medical History History ICD Code Denies AL,DM,CVA,Lung disease,renal dise ase Dementia--cerebral aneurysm- -2005--short term memory issues--she does sign her own consent forms Seizure disorder Bipolar disease Hyperlipidemia Hypernatremia-Dr. Avitia Hypothyroidism Screening colonoscopy with 3 tubular katy nomas removed in January 2017 Surgical History Surgery Date(Month/Year) Mastoid operation left 1979 Cerebral aneurysm--? surgery--had a trac heostomy 2005 BTL
== END 2024-08-13 16:36 | disposition home or self-care (01) ==
LOC: HO.HMCHD 15:37
PROVIDERS: PCP Internal Medicine; Visit Provider Internal Medicine
DX: Z86.39 Personal history of other endocrine, nutritional and metabolic disease (principal); R73.9 Hyperglycemia, unspecified; E78.00 Pure hypercholesterolemia, unspecified; E03.9 Hypothyroidism, unspecified

== ENCOUNTER → 2024-08-13 15:36 | Outpatient (BNVA) | payer MEDICARE, SELFPAY | PROVIDERS: PCP Internal Medicine; Visit Provider Internal Medicine | DX: R73.9 Hyperglycemia, unspecified (principal); E78.00 Pure hypercholesterolemia, unspecified; E03.9 Hypothyroidism, unspecified; Z86.39 Personal history of other endocrine, nutritional and metabolic disease | CPT/HCPCS: 96127; 99202 ==

== ENCOUNTER 2024-08-19 15:46 | Outpatient (REF) | payer MEDICARE, SELFPAY ==
--- OUTSIDE RECORDS SUMMARY | 2024-08-19 15:49 | XMS_ITS ---
Author Organization [facility] Address [address] [place] [address] Care Team Providers Care Compliance Reviewer Name Role Phone Yoshi Dotson MD Primary Care Provider Chico Ramon Unavailable [phone] REASON FOR VISIT screening,hx polyps Problems Problem Type SNOMED Code ICD Code Onset Dates Problem Status W/U Status Risk Notes Problem History of polyp of colon (situation) (218858421) Personal history of colonic polyps (Z86.010) Active confirmed Problem Diverticular disease of colon (766553815) Diverticulosis of large intestine without perforation or abscess without bleeding (K57.30) Active confirmed Encounters Encounter Location Date Provider Diagnosis [facility] [address] [place] [address] [id number] 04/05/2023 Chico Ratna Encounter for scre ening [...] * KIMBERLY SAAVEDRA MDOB:1965 (58 yo F)Acc No.[id number]:04/05/2023 COLON WITH MAC Patient:?KIMBERLY SAAVEDRA Provider:?Chico Segundo MD :1965???Age:57 Y???Sex:Female D ate:04/05/2023 Address:[address] [place] [address] [facility] Pcp:Yoshi Dotson MD Subjective: * Chief Complaints: * ???1. Screening,hx polyps. * Medical History:? Objective: * Vitals:? Assessment: * Assessment: 1.?Encounter for screening c olonoscopy - Z12.11 (Primary)???2.?Personal history of colonic polyps - Z86.010???3.?Diverticulosis of large intestine without perforation or abscess without bleeding - K57.30???4.?Other hemorrhoids - K64.8??? Plan: * Treatment: * Procedure Codes:?76780 DIAGN OSTIC COLONOSCOPY * * The named appointment provid er may or may not be the originator of this progress note, and it is not deemed complete until electronically signed by the appointment provider. Sign off status: Pending * Provider:?Chico Segundo MD Date:? 023 Generated for Aleksandar khanna/Joyce/eTfostersmitting on:?08/19/2024 03:49 PM EDT
--- OUTSIDE RECORDS SUMMARY | 2024-08-19 15:49 | XMS_ITS | Patient Health Record ---
Author Organization [facility] Address [address] [place] [address] Care Team Providers Care Signal Tower Operator Name Role Phone Yoshi Dotson MD Primary Care Provider Chico Ramon Unavailable [phone] Allergies Allergen (clinical drug ingredient) Drug/Non Drug [...] Problem Status W/U Status Risk Notes Problem 599228641 Colon cancer screening (Z12.11) Active confirmed Problem 032662692 Encounter for screening for malignant neoplasm of colon (Z12.11) Active confirmed Problem 098665623 History of adenomatous polyp of colon (Z86.010) Active confirmed Problem History of polyp of colon (situation) (719199578) Personal history of colonic polyps (Z86.010) Active confirmed Problem Diverticular disease of colon (775962411) Diverticulosis of large intestine without perforation or abscess without bleeding (K57.30) Active confirmed Problem 521008773 Preprocedural examination (Z01.818) Active confirmed Plan Of Treatment Future Test Test Name Order Date COLONOSCOPY 10/04/2016 COLONOSCOPY 12/28/2022 Insurance Providers Payer Name Payer Address Payer Phone Subscriber Number Group Number Insured Name Patient Relationship to Insured Coverage Start Date Coverage End Date [facility] [address] [address] [place] [address] [id number] KIMBERLY SAAVEDRA Self - patient is the insured MEDICAID OF [facility] [address] [place] [address] [phone] [id number] KIMBERLY SAAVEDRA Self - patient is the insured Medical (General) History Medical History History ICD Code Denies SD,DM,CVA,Lung disease,renal dise ase Dementia--cerebral aneurysm- -2005--short term memory issues--she does sign her own consent forms Seizure disorder Bipolar disease Hyperlipidemia Hypernatremia-Dr. Avitia Hypothyroidism Screening colonoscopy with 3 tubular katy nomas removed in January 2017 Surgical History Surgery Date(Month/Year) Mastoid operation left 1979 Cerebral aneurysm--? surgery--had a trac heostomy 2005 BTL
--- OUTSIDE RECORDS SUMMARY | 2024-08-19 15:49 | XMS_ITS ---
Author Name Caleb RAMOS, MS. Myah Mistry Address [address] [place] [address] Phone [phone] [facility] Care Team Providers Care Slotter Operator Helper Name Role Phone Britany Ellis Unavailable [phone] Unavailable Unavailable Unavailable Fern Hurd Unavailable [phone] Nathan Avitia Unavailable [phone] KAYLA HUGHES Unavailable [phone] Reason for Referral Not Available Allergies, adverse [...] 2023-06-17 No Data Available OneTouch Delica Plus [id number] Miscellaneous DIRECTED TO TEST BLOOD SUGAR FOUR [...] Active 2022-08-17 N/A Other problems related to [facility] facilities and other health care Active 2024-06-09 N/A Encounter for health-related screening Active 01-07-03 N/A Encounters Encounters Type Facility Date of Service Diagnosis/Co mplaint New patient, 30-44min 1 stable chronic or 2 minor; add modifier 95 for video, modifier 93 for [facility]/2022 Nontraumatic subarachnoid hemorrhage from unsp intracran artUnspecified dementia without behavioral disturbanceHyperlipidemia, unspecifiedHypothyroidism, unspecifiedBipolar disorder, unspecifiedHyperosmolality and hypernatremiaChronic kidney disease, stage 3bThrombocytopenia, unspecifiedEpilepsy, unspecified, not intractable, without status epilepticus New patient, 30-44min 1 stable chronic or 2 minor; add modifier 95 for video, modifier 93 for [facility] New patient, 30-44min 1 stable chronic or 2 minor; add modifier 95 for video, modifier 93 for [facility] New patient, 30-44min 1 stable chronic or 2 minor; add modifier 95 for video, modifier 93 for [facility]2022 New patient, 30-44min 1 stable chronic or 2 minor; add modifier 95 for video, modifier 93 for phone [facility] New patient, 30-44min 1 stable chronic or 2 minor; add modifier 95 for video, modifier 93 for phone [facility] New patient, 30-44min 1 stable chronic or 2 minor; add modifier 95 for video, modifier 93 for phone [facility] New patient, 30-44min 1 stable chronic or 2 minor; add modifier 95 for video, modifier 93 for phone [facility] New patient, 30-44min 1 stable chronic or 2 minor; add modifier 95 for video, modifier 93 for phone [facility] Estab. patient 30-39min; chronic exacerbation, 2 stable chronic or 1 acute illness add add modifier 95 for video, (do not use for phone, instead use 21887-29) [facility] 06[place]17/2023 Nontraumatic subarachnoid hemorrhage from unsp intracran artUnspecified dementia without behavioral disturbanceHyperlipidemia, unspecifiedHypothyroidism, unspecifiedBipolar disorder, unspecifiedChronic kidney disease, stage 3bThrombocytopenia, unspecifiedEpilepsy, unspecified, not intractable, without status epilepticusOther problems related to medical facilities and other health care Estab. patient 30-39min; chronic exacerbation, 2 stable chronic or 1 acute illness add add modifier 95 for video, (do not use for phone, instead use 15284-59) [facility]20[place] Estab. patient 30-39min; chronic exacerbation, 2 stable chronic or 1 acute illness add add modifier 95 for video, (do not use for phone, instead use 23459-51) [facility] 06[place]17/20[place] Estab. patient 30-39min; chronic exacerbation, 2 stable chronic or 1 acute illness add add modifier 95 for video, (do not use for phone, instead use 48741-84) [facility] [place]17/2023 Estab. patient 30-39min; chronic exacerbation, 2 stable chronic or 1 acute illness add add modifier 95 for video, (do not use for phone, instead use 02675-42) [facility]20[place] Estab. patient 30-39min; chronic exacerbation, 2 stable chronic or 1 acute illness add add modifier 95 for video, (do not use for phone, instead use 52806-10) [facility] 06[place]17/2023 Estab. patient 30-39min; chronic exacerbation, 2 stable chronic or 1 acute illness add add modifier 95 for video, (do not use for phone, instead use 48840-10) [facility] 06[place]/20[place] Estab. patient 30-39min; chronic exacerbation, 2 stable chronic or 1 acute illness add add modifier 95 for video, (do not use for phone, instead use 86494-48) [facility]17/2023 Estab. patient 20-29min; 1 stable chronic or 2 minor; add add modifier 95 for video, modifier 93 for phone [facility]09/2024 Unspecified dementia, modera te, with mood disturbanceBipolar disorder, unspecifiedHyperlipidemia, unspecifiedHypothyroidism, unspecifiedEpilepsy, unspecified, not intractable, without status epilepticusOther problems related to medical facilities and other health careType 2 diabetes mellitus with diabetic chronic kidney diseaseChronic kidney disease, stage 3aEncounter for screening, unspecified Estab. patient 20-29min; 1 stable chronic or 2 minor; add add modifier 95 for video, modifier 93 for phone [facility]/09/2024 Estab. patient 20-29min; 1 stable chronic or 2 minor; add add modifier 95 for video, modifier 93 for phone [facility]09/20[place] Estab. patient 20-29min; 1 stable chronic or 2 minor; add add modifier 95 for video, modifier 93 for phone [facility]20[place] Estab. patient 20-29min; 1 stable chronic or 2 minor; add add modifier 95 for video, modifier 93 for phone [facility]/09/20[place] Estab. patient 20-29min; 1 stable chronic or 2 minor; add add modifier 95 for video, modifier 93 for phone [facility] 06/09/2024 Estab. patient 20-29min; 1 stable chronic or 2 minor; add add modifier 95 for video, modifier 93 for phone [facility] 06[place]09/20[place] Estab. patient 20-29min; 1 stable chronic or 2 minor; add add modifier 95 for video, modifier 93 for phone [facility] 06/09/20[place] Estab. patient 20-29min; 1 stable chronic or 2 minor; add add modifier 95 for video, modifier 93 for phone [facility]2024 Vital Signs Date of Collection Vitals [...] tive Time Current Smoking Status Former smoker 2024-08-06 4 Sex Female Gender identity Woman History of Procedures Procedures Service Procedure code Service date Servicing provider Phone# New patient, 30-44min 1 stable chronic or 2 minor; add modifier 95 for video, modifier 93 for phone [id number] 2022-08-16 No Data Available No Data Available [...] (do not use for phone, instead use 27154-13) 50357 2023-06-17 No Data Available No Data Availa [...] 95 for video, modifier 93 for phone [id number] 2024-06-09 No Data Available No Data Availa [...] decision-maker. (1124F)Continue to see PCP. Follow-up with [facility] as needed for any acute or disease [...] and fall precautions. Follow up with PCP, clinic nurse as indicated.been years since last seizurerecent eeg [...] Contact mental health professional:/ Transfer member to [address] [place] [address]/ Haloperidol 0.5mg PO q8h PRN agitation/ Hydroxyzine (Vistaril) 25mg PO q6h PRN anxiety/ Remind member of breathing exercises/ Encourage use of home medication:/ Increase dose of current medication:/ Limit extra stimulation.Requesting assistance locating breast cancer screening center. Task placed for [facility] to assist. Encouraged routine health screening [...] Do you have a Durable Power of Line Mechanic for Healthcare, or Healthcare Proxy Or Guardianship? SELECTIf so, Who? Rosa M Patel, CaregiverDo you have a written Advance Directive? Has Advance DirectiveOther details of discussion: (Who was present, patients description of wishes/goals)Today's plan: Advised patient to discuss wishes with [id number] : AD or surrogate was documented in the medical record. 2024-06-09 Most recent hospital stay(s) or ER visit(s) and precipitating factors: 2024-06-09 Most recent hospital stay(s) or ER visit(s) and precipitating factors: None recently reported in the past six months. 2024-06-09 Open HEDIS Measure ranjan carlson: Reviewed
--- OUTSIDE RECORDS SUMMARY | 2024-08-19 15:49 | XMS_ITS | Clinical Summary ---
Author Organization [facility] Address [address] [place] [address] Phone Care Team Providers Care Lockstitch Machine Operator Name Role Phone Yoshi Dotson MD Primary Care Provider [phone] Allergies Active Allergy Reactions Criticality Noted Date [...] Medicaid [place] Care Teams Lockstitch Machine Operator Relationship Specialty Start Date End Date Yoshi Dotson MD [address] [place] [address] DR[id number] [place], [place] PCP - General 04/18/20
== END 2024-08-19 15:47 | disposition home or self-care (01) ==
LOC: HO.MAMMO 15:46
PROVIDERS: PCP Internal Medicine; Visit Provider Internal Medicine
DX: Z12.31 Encounter for screening mammogram for malignant neoplasm of breast (principal)
CPT/HCPCS: 77063; 77067

== ENCOUNTER → 2024-08-19 16:00 | Outpatient (BNV) | payer MEDICARE, SELFPAY | PROVIDERS: PCP Internal Medicine; Visit Provider Internal Medicine | DX: Z12.31 Encounter for screening mammogram for malignant neoplasm of breast (principal) | CPT/HCPCS: 77063; 77067 ==

== ENCOUNTER 2024-08-24 08:35 | Outpatient (REF) | payer MEDICARE, SELFPAY ==
--- OUTSIDE RECORDS SUMMARY | 2024-08-24 08:44 | XMS_ITS ---
Author Name Caleb RAMOS, MS. Myah Mistry Address [address] [place] [address] Phone [phone] [facility] Care Team Providers Care Watch Assembly Inspector Name Role Phone Britany Ellis Unavailable [phone] Unavailable Unavailable Unavailable Fern Hurd Unavailable [phone] Nathan Avitia Unavailable [phone] KAYLA HUGHES Unavailable [phone] Reason for Referral Not Available Allergies, adverse [...] 2023-06-17 No Data Available OneTouch Delica Plus [id number] Miscellaneous DIRECTED TO TEST BLOOD SUGAR FOUR [...] Active 2022-08-17 N/A Other problems related to [facility] and other health care Active 2024-06-09 N/A Encounter for health-related screening Active 01-07-03 N/A Encounters Encounters Type Facility Date of Service Diagnosis/Co mplaint New patient, 30-44min 1 stable chronic or 2 minor; add modifier 95 for video, modifier 93 for [facility]16/2022 Nontraumatic subarachnoid hemorrhage from unsp intracran artUnspecified dementia without behavioral disturbanceHyperlipidemia, unspecifiedHypothyroidism, unspecifiedBipolar disorder, unspecifiedHyperosmolality and hypernatremiaChronic kidney disease, stage 3bThrombocytopenia, unspecifiedEpilepsy, unspecified, not intractable, without status epilepticus New patient, 30-44min 1 stable chronic or 2 minor; add modifier 95 for video, modifier 93 for [facility] 08/16/2022 New patient, 30-44min 1 stable chronic or 2 minor; add modifier 95 for video, modifier 93 for [facility] 08/16/2022 New patient, 30-44min 1 stable chronic or 2 minor; add modifier 95 for video, modifier 93 for [facility] 08/16/2022 New patient, 30-44min 1 stable chronic or 2 minor; add modifier 95 for video, modifier 93 for phone [facility] New patient, 30-44min 1 stable chronic or 2 minor; add modifier 95 for video, modifier 93 for phone [facility] 08[place]22 New patient, 30-44min 1 stable chronic or 2 minor; add modifier 95 for video, modifier 93 for phone [facility] 08[place]2022 New patient, 30-44min 1 stable chronic or 2 minor; add modifier 95 for video, modifier 93 for phone [facility] 08/[place]2022 New patient, 30-44min 1 stable chronic or 2 minor; add modifier 95 for video, modifier 93 for phone [facility] 08/[place]/2022 Estab. patient 30-39min; chronic exacerbation, 2 stable chronic or 1 acute illness add add modifier 95 for video, (do not use for phone, instead use 42357-53) [facility] 06/17/2023 Nontraumatic subarachnoid hemorrhage from unsp intracran artUnspecified dementia without behavioral disturbanceHyperlipidemia, unspecifiedHypothyroidism, unspecifiedBipolar disorder, unspecifiedChronic kidney disease, stage 3bThrombocytopenia, unspecifiedEpilepsy, unspecified, not intractable, without status epilepticusOther problems related to medical facilities and other health care Estab. patient 30-39min; chronic exacerbation, 2 stable chronic or 1 acute illness add add modifier 95 for video, (do not use for phone, instead use 39825-56) [facility] 06/17/2023 Estab. patient 30-39min; chronic exacerbation, 2 stable chronic or 1 acute illness add add modifier 95 for video, (do not use for phone, instead use 97664-56) [facility] 06/17/2023 Estab. patient 30-39min; chronic exacerbation, 2 stable chronic or 1 acute illness add add modifier 95 for video, (do not use for phone, instead use 25932-40) [facility] ([place] 06/17/2023 Estab. patient 30-39min; chronic exacerbation, 2 stable chronic or 1 acute illness add add modifier 95 for video, (do not use for phone, instead use 40148-36) [facility] 06/17/2023 Estab. patient 30-39min; chronic exacerbation, 2 stable chronic or 1 acute illness add add modifier 95 for video, (do not use for phone, instead use 12585-22) [facility] 06/17/2023 Estab. patient 30-39min; chronic exacerbation, 2 stable chronic or 1 acute illness add add modifier 95 for video, (do not use for phone, instead use 72513-04) [facility] 06/17/2023 Estab. patient 30-39min; chronic exacerbation, 2 stable chronic or 1 acute illness add add modifier 95 for video, (do not use for phone, instead use 86856-70) [facility] 06/17/2023 Estab. patient 20-29min; 1 stable chronic or 2 minor; add add modifier 95 for video, modifier 93 for phone [facility] 06/09/2024 Unspecified dementia, modera te, with mood disturbanceBipolar disorder, unspecifiedHyperlipidemia, unspecifiedHypothyroidism, unspecifiedEpilepsy, unspecified, not intractable, without status epilepticusOther problems related to medical facilities and other health careType 2 diabetes mellitus with diabetic chronic kidney diseaseChronic kidney disease, stage 3aEncounter for screening, unspecified Estab. patient 20-29min; 1 stable chronic or 2 minor; add add modifier 95 for video, modifier 93 for phone [facility] 06/09/2024 Estab. patient 20-29min; 1 stable chronic or 2 minor; add add modifier 95 for video, modifier 93 for phone [facility] 06/09/2024 Estab. patient 20-29min; 1 stable chronic or 2 minor; add add modifier 95 for video, modifier 93 for phone [facility] 06/09/2024 Estab. patient 20-29min; 1 stable chronic or 2 minor; add add modifier 95 for video, modifier 93 for phone [facility] 06/09/2024 Estab. patient 20-29min; 1 stable chronic or 2 minor; add add modifier 95 for video, modifier 93 for phone [facility] 06/09/2024 Estab. patient 20-29min; 1 stable chronic or 2 minor; add add modifier 95 for video, modifier 93 for phone [facility] 06/09/2024 Estab. patient 20-29min; 1 stable chronic or 2 minor; add add modifier 95 for video, modifier 93 for phone [facility] 06/09/2024 Estab. patient 20-29min; 1 stable chronic or 2 minor; add add modifier 95 for video, modifier 93 for phone [facility] 06/09/2024 Vital Signs Date of Collection Vitals [...] Time Current Smoking Status Former smoker 2024-08-06 9 Sex Female Gender identity Woman History of Procedures Procedures Service Procedure code Service date Servicing provider Phone# New patient, 30-44min 1 stable chronic or 2 minor; add modifier 95 for video, modifier 93 for phone [id number] 2022-08-16 No Data Available No Data Available [...] (do not use for phone, instead use 58026-68) [id number] 2023-06-17 No Data Available No Data Availa [...] 95 for video, modifier 93 for phone [id number] 2024-06-09 No Data Available No Data Availa [...] decision-maker. (1124F)Continue to see PCP. Follow-up with [facility] as needed for any acute or disease [...] and fall precautions. Follow up with PCP, director of orthopedics as indicated.been years since last seizurerecent eeg [...] Contact mental health professional:/ Transfer member to [address] [place] [address]/ Haloperidol 0.5mg PO q8h PRN agitation/ Hydroxyzine (Vistaril) 25mg PO q6h PRN anxiety/ Remind member of breathing exercises/ Encourage use of home medication:/ Increase dose of current medication:/ Limit extra stimulation.Requesting assistance locating breast cancer screening center. Task placed for [facility] to assist. Encouraged routine health screening and [...] Do you have a Durable Power of Plant Pathologist for Healthcare, or Healthcare Proxy Or Guardianship? SELECTIf so, Who? Rosa M Patel, CaregiverDo you have a written Advance Directive? Has Advance DirectiveOther details of discussion: (Who was present, patients description of wishes/goals)Today's plan: Advised patient to discuss wishes with [id number] : AD or surrogate was documented in the medical record. 2024-06-09 Most recent hospital stay(s) or ER visit(s) and precipitating factors: 2024-06-09 Most recent hospital stay(s) or ER visit(s) and precipitating factors: None recently reported in the past six months. 2024-06-09 Open HEDIS Measure ranjan carlson: Reviewed
--- OUTSIDE RECORDS SUMMARY | 2024-08-24 08:44 | XMS_ITS ---
Author Organization [facility] Address [address] [place] [address] Care Team Providers Care Salesperson Florist Supplies Name Role Phone Yoshi Dotson MD Primary Care Provider Chico Ramon Unavailable [phone] REASON FOR VISIT screening,hx polyps Problems Problem Type SNOMED Code ICD Code Onset Dates Problem Status W/U Status Risk Notes Problem History of polyp of colon (situation) (035338543) Personal history of colonic polyps (Z86.010) Active confirmed Problem Diverticular disease of colon (359474082) Diverticulosis of large intestine without perforation or abscess without bleeding (K57.30) Active confirmed Encounters Encounter Location Date Provider Diagnosis [facility] Outpatient [address] [place] [address] [phone] 04/05/2023 Chico Ratna Encounter for scre ening [...] * KIMBERLY SAAVEDRA MDOB:1965 (58 yo F)Acc No.[id number]:04/05/2023 COLON WITH MAC Patient:?KIMBERLY SAAVEDRA Provider:?Chico Segundo MD :1965???Age:57 Y???Sex:Female D ate:04/05/2023 Address:[address] [place] [address] [facility] Pcp:Yoshi Dotson MD Subjective: * Chief Complaints: * ???1. Screening,hx polyps. * Medical History:? Objective: * Vitals:? Assessment: * Assessment: 1.?Encounter for screening c olonoscopy - Z12.11 (Primary)???2.?Personal history of colonic polyps - Z86.010???3.?Diverticulosis of large intestine without perforation or abscess without bleeding - K57.30???4.?Other hemorrhoids - K64.8??? Plan: * Treatment: * Procedure Codes:?33692 DIAGN OSTIC COLONOSCOPY * * The named appointment provid er may or may not be the originator of this progress note, and it is not deemed complete until electronically signed by the appointment provider. Sign off status: Pending * Provider:?Chico Segundo MD Date:? 023 Generated for Aleksandar khanna/Joyce/eTfostersmitting on:?08/24/2024 08:44 AM EDT
--- OUTSIDE RECORDS SUMMARY | 2024-08-24 08:44 | XMS_ITS | Clinical Summary ---
Author Organization [facility] Address [address] [place] [address] Phone Care Team Providers Care Destination Coordinator Name Role Phone Yoshi Dotson MD Primary Care Provider [phone] Allergies Active Allergy Reactions Criticality Noted Date [...] Medicaid [place] Care Teams Destination Coordinator Relationship Specialty Start Date End Date Yoshi Dotson MD [address] [place] [address] DR[address] [place], [place] PCP - General 04/18/20
--- OUTSIDE RECORDS SUMMARY | 2024-08-24 08:44 | XMS_ITS | Patient Health Record ---
Author Organization [facility] Address [address] [place] [address] Care Team Providers Care Lease Administration Supervisor Name Role Phone Yoshi Dotson MD Primary Care Provider Chico Ramon Unavailable [phone] Allergies Allergen (clinical drug ingredient) Drug/Non Drug [...] Problem Status W/U Status Risk Notes Problem 066463604 Colon cancer screening (Z12.11) Active confirmed Problem 553764510 Encounter for screening for malignant neoplasm of colon (Z12.11) Active confirmed Problem 937164023 History of adenomatous polyp of colon (Z86.010) Active confirmed Problem History of polyp of colon (situation) (398158186) Personal history of colonic polyps (Z86.010) Active confirmed Problem Diverticulosis o f large intestine without perforation or abscess without bleeding (K57.30) Active confirmed Problem 435895521 Preprocedural examination (Z01.818) Active confirmed Plan Of Treatment Future Test Test Name Order Date COLONOSCOPY 10/04/2016 COLONOSCOPY 12/28/2022 Insurance Providers Payer Name Payer Address Payer Phone Subscriber Number Group Number Insured Name Patient Relationship to Insured Coverage Start Date Coverage End Date [facility] [address] [address] [address] [place] [address] [id number] KIMBERLY SAAVEDRA Self - patient is the insured MEDICAID OF [facility] [address] [place] [address] [id number] KIMBERLY SAAVEDRA Self - patient is the insured Medical (General) History Medical History History ICD Code Denies OH,DM,CVA,Lung disease,renal dise ase Dementia--cerebral aneurysm- -2005--short term memory issues--she does sign her own consent forms Seizure disorder Bipolar disease Hyperlipidemia Hypernatremia-Dr. Avitia Hypothyroidism Screening colonoscopy with 3 tubular katy nomas removed in January 2017 Surgical History Surgery Date(Month/Year) Mastoid operation left 1979 Cerebral aneurysm--? surgery--had a trac heostomy 2005 BTL
[2024-08-24 08:50] LABS: MANUAL DIFF FLAG NO
[2024-08-24 09:15] LABS: Basophils Percent Auto 0.7 % (0-2); Eosinophils Absolute Auto 0.1 X10*3/uL (0.0-0.4); Eosinophils Percent Auto 1.5 % (0-4); Hematocrit 41.3 % (37.0-47.0); Hemoglobin 13.1 g/dl (12.0-16.0); Imm Gran Abs Auto 0.02 X10*3/uL (0.00-0.03); Imm Gran Pct Auto 0.3 % (0.0-0.4); Lymphocytes Absolute Auto 2.4 X10*3/uL (1.2-4.9); Lymphocytes Percent Auto 39.3 % (20-40); Mean Corpuscular HGB Conc 31.7 g/dl (31.0-35.0); Mean Corpuscular Hemoglobin 29.6 pg (27.0-33.0); Mean Corpuscular Volume 93.2 fL (80.0-98.0); Mean Platelet Volume 9.9 fL (9.4-12.3); Monocytes Absolute Auto 0.5 X10*3/uL (0.1-1.2); Monocytes Percent Auto 8.4 % (2-11); Neutrophils Percent Auto 49.8 % (45-73); Platelet Count 182 X10*3/uL (160-400); Red Blood Count 4.43 X10*6/uL (4.20-5.50); Red Cell Distribution Width 12.9 % (11.0-16.0); White Blood Count 6.1 X10*3/uL (4.8-10.8)
[2024-08-24 09:27] LABS: Estimated Average Glucose 117 mg/dL; Hemoglobin A1C 129.1366 umol/L; Hemoglobin A1c % 5.7 % (<6.0); Total Hemoglobin (HGBA1C) 3356.1404 umol/L
[2024-08-24 09:59] LABS: Alanine Aminotransferase 11 U/L (0-31); Albumin Level 4.2 g/dL (3.5-5.0); Alkaline Phosphatase 74 U/L (39-117); Anion Gap 13 (12-20); Aspartate Amino Transferase 19 U/L (5-31); Bilirubin Total 0.3 mg/dL (0.0-1.0); Blood Urea Nitrogen 13 mg/dL (9-16); Calcium 9.5 mg/dL (8.4-10.2); Carbon Dioxide 28 mmol/L (22-29); Chloride 113 mmol/L (96-108); Cholesterol 191 mg/dL (<200); Estimated Glomerular Filt Rate 54; Glucose Random 110 mg/dL (60-115); HDL Cholesterol 51 mg/dL (>40); LDL Cholesterol Calculated 100 mg/dL (<100); Potassium 4.4 mmol/L (3.3-5.1); Sodium 150 mmol/L (135-145); Triglycerides 202 mg/dL (<150)
[2024-08-24 10:05] LABS: TSH reflex Free T4 1.14 uIU/mL (0.32-4.0)
== END 2024-08-24 08:36 | disposition home or self-care (01) ==
LOC: HO.LAB 08:35
PROVIDERS: PCP Internal Medicine; Visit Provider Internal Medicine
DX: R73.9 Hyperglycemia, unspecified (principal); E03.9 Hypothyroidism, unspecified; E78.00 Pure hypercholesterolemia, unspecified; Z86.39 Personal history of other endocrine, nutritional and metabolic disease
CPT/HCPCS: 36415; 80053; 80061; 83036; 84443; 85025

== ENCOUNTER 2025-01-13 08:38 | Outpatient (REF) | payer OTHER, SELFPAY ==
[2025-01-13 09:31] LABS: Anion Gap 17 (12-20); Blood Urea Nitrogen 22 mg/dL (9-16); Calcium 9.9 mg/dL (8.4-10.2); Carbon Dioxide 28 mmol/L (22-29); Chloride 116 mmol/L (96-108); Estimated Glomerular Filt Rate 42; Potassium 4.6 mmol/L (3.3-5.1); Sodium 156 mmol/L (135-145)
== END 2025-01-13 08:39 | disposition home or self-care (01) ==
LOC: HO.LAB 08:38
PROVIDERS: Internal Medicine; PCP Internal Medicine; Visit Provider Physician Assistant Medical
DX: N17.9 Acute kidney failure, unspecified (principal); E87.0 Hyperosmolality and hypernatremia; E86.0 Dehydration; R73.9 Hyperglycemia, unspecified
CPT/HCPCS: 36415; 80048; 83036

== ENCOUNTER 2025-01-26 13:23 | Outpatient (AMB) | payer OTHER, SELFPAY ==
[2025-01-26 07:53] VITALS: BP 122/80; PULSE 93; TEMP 36.2; O2SAT 97; BMI 36.0
--- NOTE | 2025-01-26 07:53 | A.OFFPC_ITS ---
Vital Signs 01/26/25 07:53 Height 5 ft 1 in Weight 190 lb 6 oz BMI 36.0 BP 122/80 Blood Pressure Location Lt brachial Position Sitting Pulse 93 Pulse Source Pulse Oximeter Temp 97.1 F Temp Source Temporal Artery Scan Pulse Oximetry (%) 97 Oxygen Delivery Method Room Air Intake Visit Reasons: Tic Bite Fishing Tackle Repairer Required: No Accompanied by: caregiver Allergies meropenem (From MERREM) Allergy (Unknown, Verified 01/26/25 07:53) UNKNOWN Penicillins (PENICILLINS) Allergy (Unknown, Verified 01/26/25 07:53) UNKNOWN Sulfa (Sulfonamide Antibiotics) (SULFA(SULFONAMIDE ANTIBIOTICS)) Allergy (Unknown, Verified 01/26/25 07:53) UNKNOWN SHELLFISH Allergy (Unknown, Uncoded 10/30/23 10:59) UNKNOWN Medication List - Last Reconciled 01/26/25 by KARTHIKEYAN Ford acetaminophen 650 mg PO Q6H PRN alcohol swabs 1 pad topical QIDACHS blood sugar diagnostic (FreeStyle Lite Strips) Test four times a day or as directed. blood-glucose meter (FreeStyle Lite Meter kit) As Directed cholecalciferol (vitamin D3) (Vitamin D3) 50 mcg PO DAILY divalproex 250 mg PO TID doxycycline monohydrate 100 mg PO BID 14 days lancets (FreeStyle Lancets) Test four times a day or as directed. levothyroxine 50 mcg PO DAILY@0600 lovastatin 20 mg PO DAILY 90 days quetiapine 200 mg PO BEDTIME quetiapine ER 300 mg PO BEDTIME Tobacco use date assessed: 01/26/25 Dental Screening Dental Screen Date: 01/26/25 Did you have a dental visit in the last 12 months?: No Did you have a dental problem in the last 6 months where you did not have access to dental care?: No HPI HPI Comments History of Present Illness Details The patient is a 59-year-old female with HLD, SIADH, Bipolar, Hypothyroidism, Seizure disorder, low vitamin D and obesity presenting in urgent visit with a tick bite. Patient was bitten by a very small tick 4 days ago. The bite initially appeared red and later developed a bright red area around the bite tomas. The patient is concerned about Lyme disease, which is common in the area, and other tick-borne illnesses. She is allergic to penicillin, sulfa drugs, and Miram, an IV antibiotic. Doxycycline was recommended as the treatment for tick- borne illnesses, to be taken twice daily for two weeks. Patient was informed and verbally consented to the use of an ambient scribe for clinic note documentation during this visit. [facility] Medical History (Updated 01/26/25 @ 15:12 by KARTHIKEYAN Ford) Bipolar disorder Cerebral aneurysm Elevated cholesterol Hyponatremia Hypothyroid Seizures SIAD (syndrome of inappropriate antidiuresis) Tick bite Surgical History H/O colonoscopy (~04/05/23) History of left mastoidectomy Hx of brain surgery Hx of tracheostomy Hx of tubal ligation Family History (Updated 01/26/25 @ 13:35 by Rama Song MA) Mother No problems noted. Father No problems noted. Social History Household Members: Caregiver Household Members Other:: lives with [facility] caregiver Housing: House Are you a primary resident care supervisor to a significant other at home: No Do you presently have visiting nurse or other home services: Yes Patient Tobacco Use Status: Former Tobacco user Tobacco use type: Cigarette e-Cigarette/Vaping Use: Former Use Advance Directives Date on File: 11/06/11 service: No Current occupational status: unemployed Cognitive needs: No Hearing needs: No Vision needs: Yes (rx glasses) Questionnaire PHQ-9 Over the last 2 weeks, how often have you been bothered by any of the following problems? 1. Little interest or pleasure in doing things: not at all 2. Feeling down, depressed, or hopeless: not at all 3. Trouble falling or staying asleep, or sleeping too much: not at all 4. Feeling tired or having little energy: not at all 5. Poor appetite or overeating: not at all 6. Feeling bad about yourself - or that you are a failure or have let yourself or your family down: not at all 7. Trouble concentrating on things, such as reading the newspaper or watching television: not at all 8. Moving or speaking so slowly that other people could have noticed. Or the opposite - being so fidgety or restless that you have been moving around a lot more than usual: not at all 9. Thoughts that you would be better off or of hurting yourself in some way: not at all Total score: 0 Depression Screening Interpretation: Negative Depression Screening Done: Yes Source: Developed by Drs. Chico Dolan, Isaak Mujica and colleagues, with an educational amos from [employer]. Thrive Questionnaire Date Thrive assessed: 01/26/25 I am a: Patient Within the past 12 months, did the food you bought not last and you didn't have the money to get more?: Never true Within the past 12 months, did you worry whether your food would run out before you got money to buy more?: Never true Do you have trouble paying for medicines?: No Do you have trouble getting transportation to medical appointments?: No Do you have trouble paying your heating and electricity bill?: No Do you have trouble taking care of your child, family member or friend?: No Do you have trouble with day-to-day activities such as bathing, preparing meals, shopping, managing finances, etc.?: No Are you currently unemployed and looking for a job?: No Are you interested in more education?: No THRIVE Score: 0 AUDIT C Alcohol Use Questionnaire (AUDIT-C) 1. How often do you have a drink containing alcohol?: Never 3. How often do you have six or more drinks on one occasion?: Never Total Score: 0 FILOMENA-7 AMB Questionnaire FILOMENA-7 Date FILOMENA - 7 assessed: 01/26/25 Feeling nervous, anxious, or on edge: 0 = Not at all Not being able to stop or control worryin = Not at all Worrying too much about different things: 0 = Not at all Trouble relaxin = Not at all Being so restless that it is hard to sit still: 0 = Not at all Becoming easily annoyed or irritable: 0 = Not at all Feeling afraid as if something awful might happen: 0 = Not at all Total FILOMENA-7 score (0-4 normal; 5-9 mild; 10-14 moderate; 15-21 severe): 0 Source: Developed by Drs. Chico Dolan, Isaak Mujica and colleagues, with an educational amos from [employer]. Review of Systems Narrative CONSTITUTIONAL No fever HEAD/NECK Negative RESPIRATORY Negative CARDIOVASCULAR Negative SKIN Reports initial redness and subsequent bright red area around the tick bite. No other masses NEUROLOGICAL No headaches PSYCHIATRIC Bipolar disorder Physical exam (Primary Care) Vital Signs: Last Vital Signs Temp 97.1 F 01/26/25 07:53 Pulse 93 01/26/25 07:53 BP 122/80 01/26/25 07:53 Pulse Ox 97 01/26/25 07:53 Oxygen Delivery Method Room Air 01/26/25 07:53 BMI result Body Mass Index 36.0 GENERAL Well developed, obese, in no apparent distress HEENT Head-Normocephalic Neck- Supple, No lymphadenopathy, thyroid WNL RESPIRATORY Normal I:E, Clear to auscultation CARDIOVASCULAR Regular, rate and rhythm, No murmurs or rubs SKIN papular lesion with surrounding erythema NEUROLOGICAL Gait normal PSYCHIATRIC Oriented to person, place and time Mood and affect WNL Appearance WNL Speech WNL Thought processes WNL Tobacco/Smoking Status: Tobacco use Status Tobacco use date assessed 01/26/25 01/26/25 07:54 Patient Tobacco Use Status Former Tobacco user 01/26/25 07:54 Tobacco use type Cigarette 01/26/25 07:54 e-Cigarette/Vaping Use Former Use 01/26/25 07:54 PHQ-9: PHQ-9 Score PHQ-9: Total score 0 01/26/25 13:35 Depression Screening Interpretation: Negative Thrive Assessment: Date of Thrive Assessment Date Thrive assessed 01/26/25 01/26/25 07:54 Coding Level of Care Code Established Pt Est Pt Level 3 (57710) Patient Type Established Diagnoses Tick bite of lower back, initial encounter S30.860A; W57.XXXA Encounter type: initial encounter Site of tick bite: lower back Time Spent (min) 25 Comment Time spent on chart review, H&P, patient education and orders. Assessment & Plan Assessment & Plan (1) Tick bite: Code(s): W57.XXXA - Bitten or stung by nonvenomous insect and other nonvenomous arthropods, initial encounter Category: Medical Qualifiers: Encounter type: initial encounter Site of tick bite: lower back Qualified Code(s): S30.860A - Insect bite (nonvenomous) of lower back and pelvis, initial encounter; W57.XXXA - Bitten or stung by nonvenomous insect and other nonvenomous arthropods, initial encounter Plan: The patient was advised to take doxycycline twice daily for two weeks to prevent potential tick-borne illnesses, including Lyme disease. The patient was informed about the symptoms of Lyme disease, such as rash, joint pain, and fatigue, and advised to monitor for these symptoms. The patient was instructed to contact the clinic if any new symptoms arise or if the current symptoms worsen. Plan I discussed with the patient the potential for tick-borne illnesses, including Lyme disease, following her tick bite. We reviewed the symptoms to watch for, such as rash and joint pain, and the importance of completing the doxycycline course. I advised her to take the medication with food to avoid stomach upset and to contact the clinic if any new symptoms develop. Patient has appointment for physical on 02/18 Medications: New doxycycline monohydrate 100 mg PO BID 28 caps 0RF 14 days Patient Instructions: - Take doxycycline twice daily for two weeks, with food. - Monitor for symptoms such as rash, joint pain, or fatigue. - Contact the clinic if new symptoms develop or if current symptoms worsen.
--- OUTSIDE RECORDS SUMMARY | 2025-01-26 17:30 | XMS_ITS | Clinical Summary ---
Author Organization [facility] Address [address] [place] [address] Phone Care Team Providers Care Receivable Clerk Name Role Phone Yoshi Dotson MD Primary Care Provider [phone] Allergies Active Allergy Reactions Criticality Noted Date [...] of 1 - PCV) 016 Influenza Vaccine (#1) 2024 Insurance Medicare [place] Care Teams Receivable Clerk Relationship Specialty Start Date End Date Yoshi Dotson MD [address] [place] [address] [address] [place], [place] PCP - General 04/18/20
== END 2025-01-26 13:58 | disposition home or self-care (01) ==
LOC: HO.HMCHD 13:24
PROVIDERS: PCP Internal Medicine; Visit Provider Physician Assistant Medical
DX: S30.860A Insect bite (nonvenomous) of lower back and pelvis, initial encounter (principal); W57.XXXA Bitten or stung by nonvenomous insect and other nonvenomous arthropods, initial encounter

== ENCOUNTER → 2025-01-26 13:23 | Outpatient (BNVA) | payer OTHER, SELFPAY | PROVIDERS: PCP Internal Medicine; Visit Provider Physician Assistant Medical | DX: S30.860A Insect bite (nonvenomous) of lower back and pelvis, initial encounter (principal); W57.XXXA Bitten or stung by nonvenomous insect and other nonvenomous arthropods, initial encounter; Y93.9 Activity, unspecified; Y92.9 Unspecified place or not applicable; Y99.9 Unspecified external cause status; Z13.31 Encounter for screening for depression | CPT/HCPCS: 96127; 99212 ==

== ENCOUNTER 2025-02-12 07:37 | Outpatient (REF) | payer OTHER, SELFPAY ==
--- OUTSIDE RECORDS SUMMARY | 2025-02-12 07:39 | XMS_ITS | Clinical Summary ---
Author Organization [facility] Address [address] [place] [address] Phone Care Team Providers Care Plant Sciences Professor Name Role Phone Yoshi Dotson MD Primary Care Provider [phone] Allergies Active Allergy Reactions Criticality Noted Date [...] Medicaid [place] Medicare [place] Care Teams Plant Sciences Professor Relationship Specialty Start Date End Date Yoshi Dotson MD [address] [place] [address] [address] [place], [place] PCP - General 04/18/20
--- OUTSIDE RECORDS SUMMARY | 2025-02-12 07:39 | XMS_ITS ---
Author Name Sil Magana NP Address [address] [place] [address] Phone [phone] [facility] Care Team Providers Care Spareribs Trimmer Name Role Phone Sil Magana Unavailable [phone] Unavailable Unavailable Unavailable Fern Hurd Unavailable [phone] Nathan Avitia Unavailable [phone] KAYLA HUGHES Unavailable [phone] Reason for Referral Not Available Allergies, adverse [...] 2023-06-17 No Data Available OneTouch Delica Plus [id number] Miscellaneous DIRECTED TO TEST BLOOD SUGAR FOUR [...] List Problem Status Onset Date Resolved Date Synopsis Hypernatremia Inactive 2022-08-17 N/A hx of thism ultiple hospitalizations [facility] nalow na diet History of ruptured cerebral aneurysm Inactive 2022-08-17 N/A multiple surge carmelina for thishx seizures post this cont on divalproex sodiumneuro FU Moderate dementia with mood disturbance, unspecified dementia type, Bipolar depression Active 2022-08-17 N/A early o nsetlois is 24 hr caregiverfu w neurosupportive care[facility] quetiapinefu w psychdenies SI06/09/24: PMQ-9 score: 14Managed with divalproex, quetiapine. Continue medications as directed. Encouraged relaxation, reassurance, and redirection techniques as needed. Increase physical activities as tolerated. Maintain safety and fall precautions. Follow up with psychiatrist as indicated. Hyperlipidemia Active 2022-08-17 N/A lovastatin [facility] lipidslow cholesterol diet06/09/24: Continue medications as directed. Encouraged diet and weight management. Discussed importance of routine labs and physical exams. Increase physical activities as tolerated. Maintain safety and fall precautions. Follow up with PCP as indicated. Hypothyroidism Active 2022-08-17 N/A levothyrox inemtr tsh t3t4fu w endo06/09/24: Continue medications as directed. Encouraged diet and weight management. Discussed importance of routine labs and physical exams. Increase physical activities as tolerated. Maintain safety and fall precautions. Follow up with PCP as indicated. Thrombocytopenia Resolved 2022-08-17 2024-06-09 [facility] cbcnikolai r jorge a marin md Type 2 diabetes mellitus with stage 3a chronic kidney disease, without long-term current use of insulin Active 2022-08-17 N/A gfr 50renally do se [facility] labslaure marin md06/09/24: eGFR: 56 (per [facility] records 2022).No antidiabetic medications at this time. BG ranges 90s-140s. Avoid NSAIDs and nephrotoxic meds. Increase oral fluid intake as tolerated. Discussed importance of routine labs and physical exams as directed. Maintain safety and fall precautions. Follow up with PCP, telegraphic service dispatcher as indicated. Epilepsy, unspecified, not intractable, without status epilepticus Active 2022-08-17 N/A been years si nce last seizurerecent eeg did show seizure activitywill cont divalproex mtr labsfu w neuroeeg as ordered06/09/24: Last seizure over 15 years.Continue medications as directed. Encouraged relaxation, reassurance, and redirection techniques as needed. Discussed importance of routine labs and physical exams. Increase physical activities as tolerated. Maintain safety and fall precautions. Follow up with PCP as indicated. Other problems related to medical facilities and other health care Active 2024-06-09 N/A PSYCH C ONTINGENCY PLANLast updated: 06/09/2024Member to call for the following symptoms: Agitation/ Hallucinations/ RestlessnessPlanned intervention: Contact mental health professional:/ Transfer member to [address] [place] [address]/ Haloperidol 0.5mg PO q8h PRN agitation/ Hydroxyzine (Vistaril) 25mg PO q6h PRN anxiety/ Remind member of breathing exercises/ Encourage use of home medication:/ Increase dose of current medication:/ Limit extra stimulation. Encounter for health-related screening Active 2024-06-09 N/A Request ing assistance locating breast cancer screening center. Task placed for CSS to assist. Encouraged routine health screening and physical exams as directed. Follow up as indicated. Encounters Encounters Type Facility Date of Service Diagnosis/Co mplaint New patient, 30-44min 1 stable chronic or 2 minor; add modifier 95 for video, modifier 93 for phone [facility] Nontraumatic subarachnoid hemorrhage from unsp intracran artUnspecified dementia without behavioral disturbanceHyperlipidemia, unspecifiedHypothyroidism, unspecifiedBipolar disorder, unspecifiedHyperosmolality and hypernatremiaChronic kidney disease, stage 3bThrombocytopenia, unspecifiedEpilepsy, unspecified, not intractable, without status epilepticus New patient, 30-44min 1 stable chronic or 2 minor; add modifier 95 for video, modifier 93 for phone [facility], ([place]) 08[place] New patient, 30-44min 1 stable chronic or 2 minor; add modifier 95 for video, modifier 93 for phone [facility], [place] 08[place] New patient, 30-44min 1 stable chronic or 2 minor; add modifier 95 for video, modifier 93 for phone [facility], ([place]) 08/16/2022 New patient, 30-44min 1 stable chronic or 2 minor; add modifier 95 for video, modifier 93 for phone [facility] 08[place]/20[place] New patient, 30-44min 1 stable chronic or 2 minor; add modifier 95 for video, modifier 93 for phone [facility], ([place] 08/16/2022 New patient, 30-44min 1 stable chronic or 2 minor; add modifier 95 for video, modifier 93 for phone [facility], ([place] 08/16/2022 New patient, 30-44min 1 stable chronic or 2 minor; add modifier 95 for video, modifier 93 for phone [facility] ([place] 08/16/2022 New patient, 30-44min 1 stable chronic or 2 minor; add modifier 95 for video, modifier 93 for phone [facility], ([place]) 08/16/20[place] Estab. patient 30-39min; chronic exacerbation, 2 stable chronic or 1 acute illness add add modifier 95 for video, (do not use for phone, instead use [id number]) [facility], ([place] 06/17/2023 Nontraumatic subarachnoid hemorrhage from unsp intracran artUnspecified dementia without behavioral disturbanceHyperlipidemia, unspecifiedHypothyroidism, unspecifiedBipolar disorder, unspecifiedChronic kidney disease, stage 3bThrombocytopenia, unspecifiedEpilepsy, unspecified, not intractable, without status epilepticusOther problems related to medical facilities and other health care Estab. patient 30-39min; chronic exacerbation, 2 stable chronic or 1 acute illness add add modifier 95 for video, (do not use for phone, instead use 61544-41) [facility], [place] 06[place] Estab. patient 30-39min; chronic exacerbation, 2 stable chronic or 1 acute illness add add modifier 95 for video, (do not use for phone, instead use 10733-87) [facility], [place] 06[place]17/20[place] Estab. patient 30-39min; chronic exacerbation, 2 stable chronic or 1 acute illness add add modifier 95 for video, (do not use for phone, instead use 08298-72) [facility], ([place] 06[place]17/2023 Estab. patient 30-39min; chronic exacerbation, 2 stable chronic or 1 acute illness add add modifier 95 for video, (do not use for phone, instead use 69732-88) [facility], [place] 06[place]17/2023 Estab. patient 30-39min; chronic exacerbation, 2 stable chronic or 1 acute illness add add modifier 95 for video, (do not use for phone, instead use 69050-92) [facility], [place] 06[place]17/2023 Estab. patient 30-39min; chronic exacerbation, 2 stable chronic or 1 acute illness add add modifier 95 for video, (do not use for phone, instead use 81744-54) [facility], [place] 06[place]17/2023 Estab. patient 30-39min; chronic exacerbation, 2 stable chronic or 1 acute illness add add modifier 95 for video, (do not use for phone, instead use 79617-80) [facility], [place] 06[place]17/20[place] Estab. patient 20-29min; 1 stable chronic or 2 minor; add add modifier 95 for video, modifier 93 for phone [facility] ([place] 06[place]09/2024 Unspecified dementia, modera te, with mood disturbanceBipolar disorder, unspecifiedHyperlipidemia, unspecifiedHypothyroidism, unspecifiedEpilepsy, unspecified, not intractable, without status epilepticusOther problems related to medical facilities and other health careType 2 diabetes mellitus with diabetic chronic kidney diseaseChronic kidney disease, stage 3aEncounter for screening, unspecified Estab. patient 20-29min; 1 stable chronic or 2 minor; add add modifier 95 for video, modifier 93 for phone [facility] ([place] 06[place]09/20[place] Estab. patient 20-29min; 1 stable chronic or 2 minor; add add modifier 95 for video, modifier 93 for phone [facility], ([place]) 06/09/2024 Estab. patient 20-29min; 1 stable chronic or 2 minor; add add modifier 95 for video, modifier 93 for phone [facility], ([place]) 06/09/2024 Estab. patient 20-29min; 1 stable chronic or 2 minor; add add modifier 95 for video, modifier 93 for phone [facility], ([place]) 06/09/2024 Estab. patient 20-29min; 1 stable chronic or 2 minor; add add modifier 95 for video, modifier 93 for phone [facility], ([place] 06/09/20[place] Estab. patient 20-29min; 1 stable chronic or 2 minor; add add modifier 95 for video, modifier 93 for phone [facility], [place] 06/09/2024 Estab. patient 20-29min; 1 stable chronic or 2 minor; add add modifier 95 for video, modifier 93 for phone [facility], [place] 06/09/2024 Estab. patient 20-29min; 1 stable chronic or 2 minor; add add modifier 95 for video, modifier 93 for phone [facility], ([place] 06/09/2024 Vital Signs Date of Collection Vitals [...] tive Time Current Smoking Status Former smoker 2025-02-0 7 Sex Female Gender identity Woman History of Procedures Procedures Service Procedure code Service date Servicing provider Phone# New patient, 30-44min 1 stable chronic or 2 minor; add modifier 95 for video, modifier 93 for phone [id number] 2022-08-16 No Data Available No Data Available BMI obtained (3008F) 3008F 2022-08-16 No Data Availab le No Data Available Advance care planning discussed and documented in the medical record beneficiary/patient did not wish to or was [...] (do not use for phone, instead use 33504-11) [id number] 2023-06-17 No Data Available No Data Availa [...] 95 for video, modifier 93 for phone [id number] 2024-06-09 No Data Available No Data Availa [...] ble Advance care planning discussed and documented advance care plan or surrogate decision-maker was [...] Cognition Status: Dementia - moderate (needs ADL assistance) , Recall 2/3 unrelated words at 3 minutes 2024-06-09 [...] modifier 95Advance care planning discussed and documented advance care plan or surrogate decision-maker was documented in the medical record. (1123F)Advance care planning discussed and documented in the medical record beneficiary/patient did not wish to or was unable to provide an advance care plan or name a surrogate decision-maker. (1124F)Continue to see PCP. [facility] any [facility] or disease [...] modifier 95Advance care planning discussed and documented advance care plan or surrogate decision-maker was [...] record (1158F)Advance care planning discussed and documented advance care plan or surrogate decision-maker was [...] caregiverfu w neurosupportive care/mtrgcont quetiapinefu w psychdenies SI3//25: PMQ-9 score: 14Managed with divalproex, quetiapine. Continue [...] and fall precautions. Follow up with PCP, telegraphic service dispatcher as indicated.been years since last seizurerecent eeg [...] Contact mental health professional:/ Transfer member to [facility] services/ Haloperidol 0.5mg PO q8h PRN agitation/ Hydroxyzine (Vistaril) 25mg PO q6h PRN anxiety/ Remind member of breathing exercises/ Encourage use of home medication:/ Increase dose of current medication:/ Limit extra stimulation.Requesting assistance locating breast cancer screening center. Task placed for CSS to assist. Encouraged routine health screening and physical exams as directed. Follow up as indicated. Goals Date Goal 2024-06-09 Remember to follow u p with PCP and specialists as directed.Call if you have any questions, comments, or concerns.Keep taking your medications as prescribed. Health Concerns Date Concern 2024-06-09 Visit completed usin g audio/video. Patient/Guardian agreed to visit via telehealth. CaregiverRosa M present to assist with visit. Today, [...] Do you have a Durable Power of Caterer'S Aide for Healthcare, or Healthcare Proxy Or Guardianship? SELECTIf so, Who? Sharda BurrisDo you have a written Advance Directive? Has Advance DirectiveOther details of discussion: (Who was present, patients description of wishes/goals)Today's plan: Advised patient to discuss wishes with [id number] : AD or surrogate was documented in the medical record. 2024-06-09 Most recent hospital stay(s) or ER visit(s) and precipitating factors: 2024-06-09 Most recent hospital stay(s) or ER visit(s) and precipitating factors: None recently reported in the past six months. 2024-06-09 Open HEDIS Measure ranjan carlson: Reviewed
--- OUTSIDE RECORDS SUMMARY | 2025-02-12 07:39 | XMS_ITS | Patient Health Record ---
Author Organization [facility] Address [address] [place] [address] Care Team Providers Care Audience Development Manager Name Role Phone Nila (RETIRED) Yoshi GARCES Primary Care Provide [place] Pate [phone] Allergies Allergen (clinical drug ingredient) Drug/Non Drug [...] at 5:00 p.m. the day before the procedure; Duration: 1 day 01/07/2023 Active Vitamin D Active Dulcolax (colon prep) 5 MG take at 3:00 p.m and 7:00p.m. Orally two tablets twice a day for one day; Duration: 1 day 01/07/2023 Active Depakote ER 250 MG 3 tabs Orally at hs Active QUEtiapine Fumarate 100 MG TAKE 1 TABLET BY MOUTH EVERY MORNING Oral; Duration: 90 Active Divalproex Sodium 250 MG TAKE 1 TABLET B Y MOUTH THREE TIMES DAILY Oral; Duration: 90 Active Lovastatin 20 MG Orally Act [...] Problem Status W/U Status Risk Notes Problem Colon cancer screening (626205994) Colon cancer screening (Z12.11) Active confirmed Problem Screening for malignant neoplasm of colon (756916442) Encounter for screening for malignant neoplasm of colon (Z12.11) Active confirmed Problem History of adenomatous polyp of colon (833951228) History of adenomatous polyp of colon (Z86.010) Active confirmed Problem History of polyp of colon (situation) (304606611) Personal history of colonic polyps (Z86.010) Active confirmed Problem Diverticular disease of colon (783936659) Diverticulosis of large intestine without perforation or abscess without bleeding (K57.30) Active confirmed Problem Preprocedural examination (999902630854240) Preprocedural examination (Z01.818) Active confirmed Plan Of Treatment Future Test Test Name Order Date COLONOSCOPY 10/04/2016 COLONOSCOPY 12/28/2022 Insurance Providers Payer Name Payer Address Payer Phone Subscriber Number Group Number Insured Name Patient Relationship to Insured Coverage Start Date Coverage End Date [facility] [address] [address] [place] [phone] [id number] KIMBERLY SAAVEDRA Self - patient is the insured MEDICAID OF [facility] [address] [place] [address] [id number] KIMBERLY SAAVEDRA Self - patient is the insured Medical (General) History Medical History History ICD Code Denies [place],DM,CVA,Lung disease,renal dise ase Dementia--cerebral aneurysm- -2005--short term memory issues--she does sign her own consent forms Seizure disorder Bipolar disease Hyperlipidemia Hypernatremia-Dr. Avitia Hypothyroidism Screening colonoscopy with 3 tubular katy nomas removed in January 2017 Surgical History Surgery Date(Month/Year) Mastoid operation left 1979 Cerebral aneurysm--? surgery--had a trac heostomy 2005 BTL
[2025-02-12 08:28] LABS: Anion Gap 12 (12-20); Carbon Dioxide 30 mmol/L (22-29); Chloride 106 mmol/L (96-108); Potassium 4.2 mmol/L (3.3-5.1); Sodium 144 mmol/L (135-145)
== END 2025-02-12 07:38 | disposition home or self-care (01) ==
LOC: HO.LAB 07:37
PROVIDERS: PCP Physician Assistant Medical; Visit Provider Physician Assistant Medical
DX: E22.2 Syndrome of inappropriate secretion of antidiuretic hormone (principal)
CPT/HCPCS: 36415; 80051

== ENCOUNTER 2025-02-18 14:21 | Outpatient (AMB) | payer MEDICARE, SELFPAY ==
[2025-02-18 14:09] VITALS: BP 128/80; PULSE 84; TEMP 36.4; O2SAT 98; BMI 36.3
--- NOTE | 2025-02-18 14:09 | MHC.PC.OV ---
Vital Signs 02/18/25 14:09 Height 5 ft 1 in Weight 192 lb BMI 36.3 BP 128/80 Blood Pressure Location Lt brachial Position Sitting Pulse 84 Pulse Source Pulse Oximeter Temp 97.6 F Temp Source Temporal Artery Scan Pulse Oximetry (%) 98 Oxygen Delivery Method Room Air Intake Visit Reasons: Annual / 6 Month F/U - see comments Airborne Sensor Specialist Required: No Accompanied by: Self / Same As Patient Allergies meropenem (From MERREM) Allergy (Unknown, Verified 02/18/25 14:09) UNKNOWN Penicillins (PENICILLINS) Allergy (Unknown, Verified 02/18/25 14:09) UNKNOWN Sulfa (Sulfonamide Antibiotics) (SULFA(SULFONAMIDE ANTIBIOTICS)) Allergy (Unknown, Verified 02/18/25 14:09) UNKNOWN SHELLFISH Allergy (Unknown, Uncoded 10/30/23 10:59) UNKNOWN Medication List - Last Reconciled 03/07/25 by KARTHIKEYAN Ford acetaminophen 650 mg PO Q6H PRN alcohol swabs 1 pad topical QIDACHS blood sugar diagnostic (FreeStyle Lite Strips) Test four times a day or as directed. blood-glucose meter (FreeStyle Lite Meter kit) As Directed cholecalciferol (vitamin D3) (Vitamin D3) 50 mcg PO DAILY divalproex 250 mg PO TID lancets (FreeStyle Lancets) Test four times a day or as directed. levothyroxine 50 mcg PO DAILY@0600 lovastatin 20 mg PO DAILY 90 days quetiapine 200 mg PO BEDTIME quetiapine ER 300 mg PO BEDTIME Tobacco use date assessed: 02/18/25 Dental Screening Dental Screen Date: 02/18/25 Did you have a dental visit in the last 12 months?: Yes Did you have a dental problem in the last 6 months where you did not have access to dental care?: No HPI HPI Comments History of Present Illness Details The patient is a 59-year-old female HLD, SADH, BIpolar disorder, Hypothyroidism, Seizure disorder, low vitamin D and obesity presenting for a follow-up and management of chronic conditions. The patient has a history of a seizure disorder, managed with Depakote for over 15 years. Her psychiatrist recently questioned the medication's efficacy and ordered lab work to check thyroid and Depakote levels. The patient has not seen a neurologist since before the COVID-19 pandemic; her last visit was approximately 10 years ago, at which time an EEG showed seizure activity, and her Depakote dose was continued without change. Approximately a month and a half ago, the patient sustained a tick bite and completed a course of antibiotics. She has no residual symptoms other than a small, persistent knot at the bite site. The patient reports a hard, non-painful lump on her side that has been present for an unknown duration. She does not feel it is has grown recently She is taking Lovasartan for HLD. She is followed by Neurology for her SADH. She is followed by psychiatrist for Bipolar disorder and is taking Seroquel. She is on Levothyroxine 50mcg for Hypothyroidism. She is due for TSH. Regarding health maintenance, her last mammogram was in August, and she is not due for a colonoscopy for another couple of years. Medical History: - Seizure disorder: Patient has been on Depakote for over 15 years. - History of tick bite: Occurred about a month and a half ago, treated with antibiotics. Patient was informed and verbally consented to the use of an ambient scribe for clinic note documentation during this visit. [facility] Medical History (Updated 03/01/25 @ 17:41 by KARTHIKEYAN Ford) Bipolar disorder Cerebral aneurysm Cognitive decline Elevated cholesterol Hyponatremia Hypothyroid Lipoma Seizures SIAD (syndrome of inappropriate antidiuresis) Tick bite Surgical History H/O colonoscopy (~04/05/23) History of left mastoidectomy Hx of brain surgery Hx of tracheostomy Hx of tubal ligation Family History Mother No problems noted. Father No problems noted. Social History Household Members: Caregiver Household Members Other:: lives with [facility] caregiver Housing: House Are you a primary patient care director to a significant other at home: No Do you presently have visiting nurse or other home services: Yes Patient Tobacco Use Status: Former Tobacco user Tobacco use type: Cigarette e-Cigarette/Vaping Use: Former Use Advance Directives Date on File: 11/06/11 service: No Current occupational status: unemployed Cognitive needs: No Hearing needs: No Vision needs: Yes (rx glasses) Questionnaire PHQ-9 Over the last 2 weeks, how often have you been bothered by any of the following problems? 1. Little interest or pleasure in doing things: not at all 2. Feeling down, depressed, or hopeless: not at all 3. Trouble falling or staying asleep, or sleeping too much: not at all 4. Feeling tired or having little energy: not at all 5. Poor appetite or overeating: not at all 6. Feeling bad about yourself - or that you are a failure or have let yourself or your family down: not at all 7. Trouble concentrating on things, such as reading the newspaper or watching television: not at all 8. Moving or speaking so slowly that other people could have noticed. Or the opposite - being so fidgety or restless that you have been moving around a lot more than usual: not at all 9. Thoughts that you would be better off or of hurting yourself in some way: not at all Total score: 0 Depression Screening Interpretation: Negative Depression Screening Done: Yes Source: Developed by Drs. Chico Dolan, Melania Vail, Isaak Duong and colleagues, with an educational amos from [employer]. Thrive Questionnaire Date Thrive assessed: 02/18/25 I am a: Patient Within the past 12 months, did the food you bought not last and you didn't have the money to get more?: Never true Within the past 12 months, did you worry whether your food would run out before you got money to buy more?: Never true Do you have trouble paying for medicines?: No Do you have trouble getting transportation to medical appointments?: No Do you have trouble paying your heating and electricity bill?: No Do you have trouble taking care of your child, family member or friend?: No Do you have trouble with day-to-day activities such as bathing, preparing meals, shopping, managing finances, etc.?: No Are you currently unemployed and looking for a job?: No Are you interested in more education?: No THRIVE Score: 0 AUDIT C Alcohol Use Questionnaire (AUDIT-C) 1. How often do you have a drink containing alcohol?: Never 3. How often do you have six or more drinks on one occasion?: Never Total Score: 0 FILOMENA-7 AMB Questionnaire FILOMENA-7 Date FILOMENA - 7 assessed: 02/18/25 Feeling nervous, anxious, or on edge: 0 = Not at all Not being able to stop or control worryin = Not at all Worrying too much about different things: 0 = Not at all Trouble relaxin = Not at all Being so restless that it is hard to sit still: 0 = Not at all Becoming easily annoyed or irritable: 0 = Not at all Feeling afraid as if something awful might happen: 0 = Not at all Total FILOMENA-7 score (0-4 normal; 5-9 mild; 10-14 moderate; 15-21 severe): 0 Source: Developed by Drs. Chico Dolan, Melania Vail, Isaak Duong and colleagues, with an educational amos from [employer]. Review of Systems Narrative - General: Patient reports feeling good. - Skin: Reports a persistent small knot at the site of a prior tick bite and a hard, non-painful lump on her side. - Gastrointestinal: Denies constipation, diarrhea, or heartburn; reports a good appetite. Physical exam (Primary Care) Vital Signs: Last Vital Signs Temp 97.6 F 02/18/25 14:09 Pulse 84 02/18/25 14:09 BP 128/80 02/18/25 14:09 Pulse Ox 98 02/18/25 14:09 Oxygen Delivery Method Room Air 02/18/25 14:09 BMI result Body Mass Index 36.3 GENERAL Well developed, obese, in no apparent distress HEENT Head-Normocephalic Neck- Supple, No lymphadenopathy, thyroid WNL RESPIRATORY Normal I:E, Clear to auscultation CARDIOVASCULAR Regular, rate and rhythm, No murmurs or rubs GASTROINTESTINAL Soft, nontender, normal bowel sounds, no masses MUSCULOSKELETAL Back- nontender Joints- no swelling or deformity SKIN Papule from tick bite Lipoma on right flank area NEUROLOGICAL Gait normal PSYCHIATRIC Oriented to person, place and time Mood and affect WNL Appearance WNL Speech WNL Thought processes WNL Tobacco/Smoking Status: Tobacco use Status Tobacco use date assessed 02/18/25 02/18/25 14:11 Patient Tobacco Use Status Former Tobacco user 02/18/25 14:11 Tobacco use type Cigarette 02/18/25 14:11 e-Cigarette/Vaping Use Former Use 02/18/25 14:11 PHQ-9: PHQ-9 Score PHQ-9: Total score 0 03/01/25 14:35 Depression Screening Interpretation: Negative Thrive Assessment: Date of Thrive Assessment Date Thrive assessed 02/18/25 02/18/25 14:11 Results Reviewed Results Reviewed: - Lab work: Recent labs were generally good, but the specific Depakote level result is pending review. - EEG: Performed approximately 10 years ago, it showed some seizure activity. Coding Level of Care Code Established Pt Tele New Pt Level 4 (60197) Patient Type Established Diagnoses Tick bite of lower back, initial encounter S30.860A; W57.XXXA Encounter type: initial encounter Site of tick bite: lower back Seizures R56.9 Lipoma D17.9 Time Spent (min) 30 Comment Time was spent on chart review, H&P, Patient education and orders. Assessment & Plan Assessment & Plan (1) Tick bite: Code(s): W57.XXXA - Bitten or stung by nonvenomous insect and other nonvenomous arthropods, initial encounter Category: Medical Qualifiers: Encounter type: initial encounter Site of tick bite: lower back Qualified Code(s): S30.860A - Insect bite (nonvenomous) of lower back and pelvis, initial encounter; W57.XXXA - Bitten or stung by nonvenomous insect and other nonvenomous arthropods, initial encounter Plan: The patient had a tick bite approximately 1.5 months ago and has completed antibiotic treatment. She was reassured that the residual knot at the bite site is not concerning and may take a couple of months to resolve completely. (2) Seizures: Comment: none since 2009 per caregiver (has been with her since 2009)-followed w/neurology in past-only sees PCP now-Dr. Dotson Code(s): R56.9 - Unspecified convulsions Category: Medical Plan: The patient has a long-standing history of a seizure disorder, managed with Depakote for over 15 years. Her psychiatrist is currently evaluating the medication's effectiveness. A referral will be placed for neurology to re-establish care, as she has not been seen since before the COVID-19 pandemic. Recent Depakote lab levels will be located and reviewed. (3) Lipoma: Code(s): D17.9 - Benign lipomatous neoplasm, unspecified Category: Medical Plan: The patient presented with a new complaint of a hard lump on her side. Physical exam revealed a palpable, non-painful mass consistent with a lipoma. The patient was reassured that this is a benign finding. The plan is to monitor the lipoma, with removal to be considered only if it increases in size. Plan I discussed the patient's recent lab work and will [facility]. I reassured her that the small knot from her recent tick bite is a normal part of the healing process and can take time to resolve. Upon examination of the hard lump on her side, I identified it as a benign lipoma, explaining that it is a non-dangerous overgrowth of fat cells that does not require intervention unless it grows larger. We discussed the importance of re-establishing care with a neurologist for long-term management of her seizure disorder, and I will place a referral. We will have a follow-up appointment in about three months to check in. Orders: Orders TSH reflex Free T4 02/18/25 E03.9 - Hypothyroidism, unspecified Valproate 02/18/25 Z79.899 - Other senior living (current) drug therapy Patient Instructions: - The small knot from your recent tick bite is normal and can take a few months to go away completely. - The hard lump on your side is a lipoma, which is a harmless fatty growth; it does not need treatment unless it gets bigger. - We are putting in a referral for you to see a neurologist to help manage your seizure medication long-term. - Please schedule a follow-up visit with our office in about three months. - Follow up with your psychiatrist on February 25.
--- OUTSIDE RECORDS SUMMARY | 2025-02-18 17:45 | XMS_ITS | Patient Health Record ---
Author Organization [facility] Address [address] [place] [address] Care Team Providers Care Facilities Custodian Name Role Phone Nila (RETIRED) Yoshi GARCES Primary Care Provide Chico Pate [phone] Allergies Allergen (clinical drug ingredient) Drug/Non Drug [...] Status Risk Notes Problem Colon cancer screening (446821792) Colon cancer screening (Z12.11) Active confirmed Problem Screening for malignant neoplasm of colon (631386148) Encounter for screening for malignant neoplasm of colon (Z12.11) Active confirmed Problem History of adenomatous polyp of colon (574660628) History of adenomatous polyp of colon (Z86.010) Active confirmed Problem History of polyp of colon (situation) (257955294) Personal history of colonic polyps (Z86.010) Active confirmed Problem Diverticular disease of colon (451750585) Diverticulosis of large intestine without perforation or abscess without bleeding (K57.30) Active confirmed Problem Preprocedural examination (458369809552170) Preprocedural examination (Z01.818) Active confirmed Plan Of Treatment Future Test Test Name Order Date COLONOSCOPY 10/04/2016 COLONOSCOPY 12/28/2022 Insurance Providers Payer Name Payer Address Payer Phone Subscriber Number Group Number Insured Name Patient Relationship to Insured Coverage Start Date Coverage End Date [facility] [address] [address] [place] [address] [id number] KIMBERLY SAAVEDRA Self - patient is the insured MEDICAID OF [facility] [address] [place] [address] [id number] KIMBERLY SAAVEDRA Self - patient is the insured Medical (General) History Medical History History ICD Code Denies HI,DM,CVA,Lung disease,renal dise ase Dementia--cerebral aneurysm- -2005--short term memory issues--she does sign her own consent forms Seizure disorder Bipolar disease Hyperlipidemia Hypernatremia-Dr. Avitia Hypothyroidism Screening colonoscopy with 3 tubular katy nomas removed in January 2017 Surgical History Surgery Date(Month/Year) Mastoid operation left 1979 Cerebral aneurysm--? surgery--had a trac heostomy 2005 BTL
--- OUTSIDE RECORDS SUMMARY | 2025-02-18 17:45 | XMS_ITS ---
Author Name Sil Magana NP Address [address] [place] [address] Phone [phone] [facility] Care Team Providers Care Communications Administrator Name Role Phone Sil Magana Unavailable [phone] Unavailable Unavailable Unavailable Fern Hurd Unavailable [phone] Nathan Avitia Unavailable [phone] KAYLA HUGHES Unavailable [phone] Reason for Referral Not Available Allergies, adverse [...] 2023-06-17 No Data Available OneTouch Delica Plus [id number] Miscellaneous DIRECTED TO TEST BLOOD SUGAR FOUR [...] 2022-08-17 N/A hx of thism ultiple hospitalizations [facility] nalow na diet History of ruptured cerebral aneurysm Inactive 2022-08-17 N/A multiple surge carmelina for thishx seizures post this cont on divalproex sodiumneuro FU Moderate dementia with mood disturbance, unspecified dementia type, Bipolar depression Active 2022-08-17 N/A early o nsetlois is 24 hr caregiverfu w neurosupportive care[facility] quetiapinefu w psychdenies SI06/09/24: PMQ-9 score: 14Managed with divalproex, quetiapine. Continue medications as directed. Encouraged relaxation, reassurance, and redirection techniques as needed. Increase physical activities as tolerated. Maintain safety and fall precautions. Follow up with psychiatrist as indicated. Hyperlipidemia Active 2022-08-17 N/A lovastatin [facility] lipidslow cholesterol diet06/09/24: Continue medications as [...] PCP as indicated. Thrombocytopenia Resolved 2022-08-17 2024-06-09 [facility] cbcnikolai r jorge a marin md [...] and fall precautions. Follow up with PCP, hammer fitter as indicated. Epilepsy, unspecified, not intractable, without [...] Contact mental health professional:/ Transfer member to [address] [place] [address]/ Haloperidol 0.5mg PO q8h PRN agitation/ Hydroxyzine [...] 95 for video, modifier 93 for phone [facility]22 Nontraumatic subarachnoid hemorrhage from unsp intracran artUnspecified dementia without behavioral disturbanceHyperlipidemia, unspecifiedHypothyroidism, unspecifiedBipolar disorder, unspecifiedHyperosmolality and hypernatremiaChronic kidney disease, stage 3bThrombocytopenia, unspecifiedEpilepsy, unspecified, not intractable, without status epilepticus New patient, 30-44min 1 stable chronic or 2 minor; add modifier 95 for video, modifier [address] [facility]16/2022 New patient, 30-44min 1 stable chronic or 2 minor; add modifier 95 for video, modifier [address] [facility] [place] 08/16/2022 New patient, 30-44min 1 stable chronic or 2 minor; add modifier 95 for video, modifier [address] [facility]/16/2022 New patient, 30-44min 1 stable chronic or 2 minor; add modifier 95 for video, modifier [address] [facility] New patient, 30-44min 1 stable chronic or 2 minor; add modifier 95 for video, modifier [address] [facility]16[place]2022 New patient, 30-44min 1 stable chronic or 2 minor; add modifier 95 for video, modifier [address] [facility]/16/2022 New patient, 30-44min 1 stable chronic or 2 minor; add modifier 95 for video, modifier [address] [facility]16[place]2022 New patient, 30-44min 1 stable chronic or 2 minor; add modifier 95 for video, modifier [address] [facility]16/2022 Estab. patient 30-39min; chronic exacerbation, 2 stable chronic or 1 acute illness add add modifier 95 for video, (do not use for phone, instead use 03197-26) [facility] 06/17/2023 Nontraumatic subarachnoid hemorrhage from unsp intracran artUnspecified dementia without behavioral disturbanceHyperlipidemia, unspecifiedHypothyroidism, unspecifiedBipolar disorder, unspecifiedChronic kidney disease, stage 3bThrombocytopenia, unspecifiedEpilepsy, unspecified, not intractable, without status epilepticusOther problems related to medical facilities and other health care Estab. patient 30-39min; chronic exacerbation, 2 stable chronic or 1 acute illness add add modifier 95 for video, (do not use for phone, instead use 26616-24) [facility] 06[place]17/2023 Estab. patient 30-39min; chronic exacerbation, 2 stable chronic or 1 acute illness add add modifier 95 for video, (do not use for phone, instead use 70224-48) [facility] 06/17/2023 Estab. patient 30-39min; chronic exacerbation, 2 stable chronic or 1 acute illness add add modifier 95 for video, (do not use for phone, instead use 70623-00) [facility] [place] 06/17/2023 Estab. patient 30-39min; chronic exacerbation, 2 stable chronic or 1 acute illness add add modifier 95 for video, (do not use for phone, instead use 19739-40) [facility] 06/17/2023 Estab. patient 30-39min; chronic exacerbation, 2 stable chronic or 1 acute illness add add modifier 95 for video, (do not use for phone, instead use 90642-68) [facility] 06/17/2023 Estab. patient 30-39min; chronic exacerbation, 2 stable chronic or 1 acute illness add add modifier 95 for video, (do not use for phone, instead use 09922-25) [facility] 06/17/2023 Estab. patient 30-39min; chronic exacerbation, 2 stable chronic or 1 acute illness add add modifier 95 for video, (do not use for phone, instead use 26158-72) [facility] 06/17/2023 Estab. patient 20-29min; 1 stable chronic or 2 minor; add add modifier 95 for video, modifier [address] [facility] ([place] 06/09/2024 Unspecified dementia, modera te, with mood disturbanceBipolar disorder, unspecifiedHyperlipidemia, unspecifiedHypothyroidism, unspecifiedEpilepsy, unspecified, not intractable, without status epilepticusOther problems related to medical facilities and other health careType 2 diabetes mellitus with diabetic chronic kidney diseaseChronic kidney disease, stage 3aEncounter for screening, unspecified Estab. patient 20-29min; 1 stable chronic or 2 minor; add add modifier 95 for video, modifier [address] [facility] ([place] 06/09/2024 Estab. patient 20-29min; 1 stable chronic or 2 minor; add add modifier 95 for video, modifier [address] [facility] 06/09/2024 Estab. patient 20-29min; 1 stable chronic or 2 minor; add add modifier 95 for video, modifier 93 for phone [facility] 06/09/2024 Estab. patient 20-29min; 1 stable chronic or 2 minor; add add modifier 95 for video, modifier 93 for phone [facility] [place] [facility]/09/2024 Estab. patient 20-29min; 1 stable chronic or 2 minor; add add modifier 95 for video, modifier 93 for phone [facility] [place] 06/09/2024 Estab. patient 20-29min; 1 stable chronic or 2 minor; add add modifier 95 for video, modifier 93 for phone [facility] [place] 06/09/2024 Estab. patient 20-29min; 1 stable chronic or 2 minor; add add modifier 95 for video, modifier 93 for phone [facility] [place] 06/09/2024 Estab. patient 20-29min; 1 stable chronic or 2 minor; add add modifier 95 for video, modifier 93 for phone [facility] [place] 06/09/2024 Vital Signs Date of Collection [...] tive Time Current Smoking Status Former smoker 2025-02-06 3 Sex Female Gender identity Woman History of Procedures Procedures Service Procedure code Service date Servicing provider Phone# New patient, 30-44min 1 stable chronic or 2 minor; add modifier 95 for video, modifier 93 for phone [id number] 2022-08-16 No Data Available No Data Available [...] (do not use for phone, instead use 74053-15) [id number] 2023-06-17 No Data Available No Data Availa [...] 95 for video, modifier 93 for phone [id number] 2024-06-09 No Data Available No Data Availa [...] decision-maker. (1124F)Continue to see PCP. [facility] [...] and fall precautions. Follow up with PCP, hammer fitter as indicated.been years since last seizurerecent eeg [...] Contact mental health professional:/ Transfer member to [facility] services/ Haloperidol 0.5mg PO q8h PRN agitation/ [...] Do you have a Durable Power of Founder And Chief Executive Officer for Healthcare, or Healthcare Proxy Or Guardianship? SELECTIf so, Who? Sharda BurrisDo you have a written Advance Directive? Has Advance DirectiveOther details of discussion: (Who was present, patients description of wishes/goals)Today's plan: Advised patient to discuss wishes with [id number] : AD or surrogate was documented in the medical record. 2024-06-09 Most recent hospital stay(s) or ER visit(s) and precipitating factors: 2024-06-09 Most recent hospital stay(s) or ER visit(s) and precipitating factors: None recently reported in the past six months. 2024-06-09 Open HEDIS Measure ranjan carlson: Reviewed
--- OUTSIDE RECORDS SUMMARY | 2025-02-18 17:45 | XMS_ITS | Clinical Summary ---
Author Organization [facility] Address [address] [place] [address] Phone Care Team Providers Care Cover Operator Name Role Phone Yoshi Dotson MD Primary Care Provider Allergies Active Allergy Reactions Criticality Noted Date [...] Medicaid [place] Medicare [place] Care Teams Cover Operator Relationship Specialty Start Date End Date Yoshi Dotson MD [address] [place] [address] [address] [place], [place] PCP - General 04/18/20
== END 2025-02-18 15:01 | disposition home or self-care (01) ==
LOC: HO.HMCHD 14:22
PROVIDERS: PCP Internal Medicine; Visit Provider Physician Assistant Medical
DX: S30.860A Insect bite (nonvenomous) of lower back and pelvis, initial encounter (principal); W57.XXXA Bitten or stung by nonvenomous insect and other nonvenomous arthropods, initial encounter; R56.9 Unspecified convulsions; D17.9 Benign lipomatous neoplasm, unspecified

== ENCOUNTER → 2025-02-18 14:21 | Outpatient (BNVA) | payer MEDICARE, SELFPAY | PROVIDERS: PCP Internal Medicine; Visit Provider Physician Assistant Medical | DX: S30.860A Insect bite (nonvenomous) of lower back and pelvis, initial encounter (principal); W57.XXXA Bitten or stung by nonvenomous insect and other nonvenomous arthropods, initial encounter; R56.9 Unspecified convulsions; D17.9 Benign lipomatous neoplasm, unspecified; Z13.31 Encounter for screening for depression; Z13.39 Encounter for screening examination for other mental health and behavioral disorders | CPT/HCPCS: 96127; 99212 ==

== ENCOUNTER 2025-02-27 08:46 | Outpatient (REF) | payer MEDICARE, SELFPAY ==
--- OUTSIDE RECORDS SUMMARY | 2025-02-27 08:49 | XMS_ITS | Patient Health Record ---
Author Organization [facility] Address [address] [place] [address] Care Team Providers Care Appeals Rn Name Role Phone Nila (RETIRED) Yoshi GARCES Primary Care Provide [place] Pate [phone] Allergies Allergen (clinical drug ingredient) Drug/Non Drug Allergy documented on EMR Reaction Allergy Type Onset Date Status merrem (uncoded) Unknown Allergy Act salo penicillin (uncoded) Unknown Allergy Active shell fish (uncoded) Unknown Allergy Active Substance with sulfonamide structure and antibacterial mechanism of action (substance) sulfa (uncoded) Unknown Allergy Active Reason For Referral No Information Medications Medication SIG (Take, Route, Frequency, Duration) Notes Start Date End Date Status MiraLax (colon prep) 17 GM/SCOOP Powder 1 238 Gm bottle of mixed with Gatorade or Crystal Light Orally begin at 5:00 p.m. the day before the procedure; Duration: 1 day 01/07/2023 Active Vitamin D Active Dulcolax (colon prep) 5 MG Tablet Delayed Release take at 3:00 p.m and 7:00p.m. Orally two tablets twice a day for one day; Duration: 1 day 01/07/2023 Active Depakote ER 250 MG Tablet Extended Release 24 Hour 3 tabs Orally at hs Active QUEtiapine Fumarate 100 MG Tablet TAKE 1 TABLET BY MOUTH EVERY MORNING Oral; Duration: 90 Active Divalproex Sodium 250 MG Tablet Delayed Release TAKE 1 TABLET BY MOUTH THREE TIMES DAILY Oral; Duration: 90 Active Lovastatin 20 MG Tablet Orally Active Levothyroxine Sodium 50 MCG Tablet 1 tablet in the morning on an empty stomach Orally Once a day Active Immunizations Vaccine Route Administration Date Status Comme nts Influenza Unknown 12/08/2015 Administered Social History Tobacco Use: Social History Observation Description Date Details (start date - stop date) Former Smoker NA - NA Social History Drugs/Alcohol: Social Info Question Answer Notes Alcohol Screen Did you have a drink containing alcohol in the past year? No Points 0 Interpretation Negative Tobacco Use: Social Info Question Answer Notes Tobacco Use/Smoking Patient is a former smoker How long has it been since you last smoked? 1-5 years Additional Details Category Social Info Options Details Miscellaneous: Marital status: Occupation: Disabled Living with: Lives with a car etaker--Rosa M Section Notes: Smoker-7 cigs QD; no alcohol Quit smoking 4 years ago; no alcohol Problems Problem Type SNOMED Code ICD Code Onset Dates Problem Status W/U Status Risk Notes Problem Colon cancer screening (217879631) Colon cancer screening (Z12.11) Active confirmed Problem Screening for malignant neoplasm of colon (286163260) Encounter for screening for malignant neoplasm of colon (Z12.11) Active confirmed Problem History of adenomatous polyp of colon (171971198) History of adenomatous polyp of colon (Z86.010) Active confirmed Problem History of polyp of colon (situation) (880250154) Personal history of colonic polyps (Z86.010) Active confirmed Problem Diverticular disease of colon (456100539) Diverticulosis of large intestine without perforation or abscess without bleeding (K57.30) Active confirmed Problem Preprocedural examination (790679590847225) Preprocedural examination (Z01.818) Active confirmed Plan Of Treatment Future Test Test Name Order Date COLONOSCOPY 10/04/2016 COLONOSCOPY 12/28/2022 Insurance Providers Payer Name Payer Address Payer Phone Subscriber Number Group Number Insured Name Patient Relationship to Insured Coverage Start Date Coverage End Date [facility] [address] [address] [place] [address] [id number] KIMBERLY SAAVEDRA Self - patient is the insured MEDICAID OF [facility] [address] [place] [address] [id number] KIMBERLY SAAVEDRA Self - patient is the insured Medical (General) History Medical History History ICD Code Denies CT,DM,CVA,Lung disease,renal dise ase Dementia--cerebral aneurysm- -2006--short term memory issues--she does sign her own consent forms Seizure disorder Bipolar disease Hyperlipidemia Hypernatremia-Dr. Avitia Hypothyroidism Screening colonoscopy with 3 tubular katy nomas removed in January 2017 Surgical History Surgery Date(Month/Year) Mastoid operation left 1978 Cerebral aneurysm--? surgery--had a trac heostomy 2005 BTL
--- OUTSIDE RECORDS SUMMARY | 2025-02-27 08:49 | XMS_ITS ---
Author Name Sil Magana NP Address [address] [place] [address] Phone [phone] [facility] Care Team Providers Care Molecular Biology Scientist Name Role Phone Sil Magana Unavailable [phone] Unavailable Unavailable Unavailable Fern Hurd Unavailable [phone] Nathan Avitia Unavailable [phone] KAYLA HUGHES Unavailable [phone] Reason for Referral Not Available Allergies, adverse [...] 2023-06-17 No Data Available OneTouch Delica Plus [id number] Miscellaneous DIRECTED TO TEST BLOOD SUGAR FOUR [...] 2022-08-17 N/A hx of thism ultiple hospitalizations [facility] nalow na diet History of ruptured cerebral aneurysm Inactive 2022-08-17 N/A multiple surge carmelina for thishx seizures post this cont on divalproex sodiumneuro FU Moderate dementia with mood disturbance, unspecified dementia type, Bipolar depression Active 2022-08-17 N/A early o nsetlois is 24 hr caregiverfu w neurosupportive [facility] qu[facility]apine[facility] w psychdenies SI06/09/24: PMQ-9 score: 14Managed with divalproex, quetiapine. Continue medications as directed. Encouraged relaxation, reassurance, and redirection techniques as needed. Increase physical activities as tolerated. Maintain safety and fall precautions. Follow up with psychiatrist as indicated. Hyperlipidemia Active 2022-08-17 N/A lovastatin [facility] lipidslow cholesterol diet06/09/24: Continue medications as directed. [...] PCP as indicated. Thrombocytopenia Resolved 2022-08-17 2024-06-09 [facility] cbcnikolai r jorge a marin md Type [...] and fall precautions. Follow up with PCP, class 1 owner operator as indicated. Epilepsy, unspecified, not intractable, without [...] Contact mental health professional:/ Transfer member to [address] [place] [address]/ Haloperidol 0.5mg PO q8h PRN agitation/ Hydroxyzine [...] for video, modifier 93 for phone [facility], ([place]) 08/16/2022 Nontraumatic subarachnoid hemorrhage from unsp intracran artUnspecified dementia without behavioral disturbanceHyperlipidemia, unspecifiedHypothyroidism, unspecifiedBipolar disorder, unspecifiedHyperosmolality and hypernatremiaChronic kidney disease, stage 3bThrombocytopenia, unspecifiedEpilepsy, unspecified, not intractable, without status epilepticus New patient, 30-44min 1 stable chronic or 2 minor; add modifier 95 for video, modifier 93 for phone [facility], [place] 08/16/2022 New patient, 30-44min 1 stable chronic or 2 minor; add modifier 95 for video, modifier 93 for phone [facility] 08/16/2022 New patient, 30-44min 1 stable chronic or 2 minor; add modifier 95 for video, modifier 93 for phone [facility] 08/16/2022 New patient, 30-44min 1 stable chronic or 2 minor; add modifier 95 for video, modifier 93 for phone [facility] 08/16/2022 New patient, 30-44min 1 stable chronic or 2 minor; add modifier 95 for video, modifier 93 for phone [facility] 08/16/2022 New patient, 30-44min 1 stable chronic or 2 minor; add modifier 95 for video, modifier 93 for phone [facility] 08/16/2022 New patient, 30-44min 1 stable chronic or 2 minor; add modifier 95 for video, modifier 93 for phone [facility] 08/16/2022 New patient, 30-44min 1 stable chronic or 2 minor; add modifier 95 for video, modifier 93 for phone [facility] 08/16/2022 Estab. patient 30-39min; chronic exacerbation, 2 stable chronic or 1 acute illness add add modifier 95 for video, (do not use for phone, instead use 03305-23) [facility], ([place]) 06/17/2023 Nontraumatic subarachnoid hemorrhage from unsp intracran artUnspecified dementia without behavioral disturbanceHyperlipidemia, unspecifiedHypothyroidism, unspecifiedBipolar disorder, unspecifiedChronic kidney disease, stage 3bThrombocytopenia, unspecifiedEpilepsy, unspecified, not intractable, without status epilepticusOther problems related to medical facilities and other health care Estab. patient 30-39min; chronic exacerbation, 2 stable chronic or 1 acute illness add add modifier 95 for video, (do not use for phone, instead use 21547-47) [facility], ([place]) 06/17/2023 Estab. patient 30-39min; chronic exacerbation, 2 stable chronic or 1 acute illness add add modifier 95 for video, (do not use for phone, instead use 76245-63) [facility], ([place]) 06/17/2023 Estab. patient 30-39min; chronic exacerbation, 2 stable chronic or 1 acute illness add add modifier 95 for video, (do not use for phone, instead use 83514-00) [facility], ([place]) 06/17/2023 Estab. patient 30-39min; chronic exacerbation, 2 stable chronic or 1 acute illness add add modifier 95 for video, (do not use for phone, instead use 23925-97) [facility], ([place]) 06/17/2023 Estab. patient 30-39min; chronic exacerbation, 2 stable chronic or 1 acute illness add add modifier 95 for video, (do not use for phone, instead use 16846-35) [facility], [place] 06/17/2023 Estab. patient 30-39min; chronic exacerbation, 2 stable chronic or 1 acute illness add add modifier 95 for video, (do not use for phone, instead use 29115-99) [facility], [place] 06/17/2023 Estab. patient 30-39min; chronic exacerbation, 2 stable chronic or 1 acute illness add add modifier 95 for video, (do not use for phone, instead use 45105-78) [facility], ([place] 06/17/2023 Estab. patient 20-29min; 1 stable chronic or 2 minor; add add modifier 95 for video, modifier 93 for phone [facility] ([place]) 06/09/2024 Unspecified dementia, modera te, with mood disturbanceBipolar disorder, unspecifiedHyperlipidemia, unspecifiedHypothyroidism, unspecifiedEpilepsy, unspecified, not intractable, without status epilepticusOther problems related to medical facilities and other health careType 2 diabetes mellitus with diabetic chronic kidney diseaseChronic kidney disease, stage 3aEncounter for screening, unspecified Estab. patient 20-29min; 1 stable chronic or 2 minor; add add modifier 95 for video, modifier 93 for phone [facility] ([place]) 06/09/2024 Estab. patient 20-29min; 1 stable chronic or 2 minor; add add modifier 95 for video, modifier 93 for phone [facility], ([place]) 06/09/2024 Estab. patient 20-29min; 1 stable chronic or 2 minor; add add modifier 95 for video, modifier 93 for phone [facility], ([place]) 06/09/2024 Estab. patient 20-29min; 1 stable chronic or 2 minor; add add modifier 95 for video, modifier 93 for phone [facility] [place] [facility] Estab. patient 20-29min; 1 stable chronic or 2 minor; add add modifier 95 for video, modifier 93 for phone [facility], ([place]) 06/09/2024 Estab. patient 20-29min; 1 stable chronic or 2 minor; add add modifier 95 for video, modifier 93 for phone [facility], ([place] 06/09/2024 Estab. patient 20-29min; 1 stable chronic or 2 minor; add add modifier 95 for video, modifier 93 for phone [facility], [place] 06/09/2024 Estab. patient 20-29min; 1 stable chronic or 2 minor; add add modifier 95 for video, modifier 93 for phone [facility], ([place]) 06/09/2024 Vital Signs Date of Collection Vitals [...] tive Time Current Smoking Status Former smoker 2025-02-2 2 Sex Female Gender identity Woman History of Procedures Procedures Service Procedure code Service date Servicing provider Phone# New patient, 30-44min 1 stable chronic or 2 minor; add modifier 95 for video, modifier 93 for phone [id number] 2022-08-16 No Data Available No Data Available [...] (do not use for phone, instead use 59099-15) [id number] 2023-06-17 No Data Available No Data Availa [...] 95 for video, modifier 93 for phone [id number] 2024-06-09 No Data Available No Data Availa [...] decision-maker. (1124F)Continue to see PCP. [facility] [...] and fall precautions. Follow up with PCP, class 1 owner operator as indicated.been years since last seizurerecent eeg [...] Contact mental health professional:/ [facility] to [facility]/ Haloperidol 0.5mg PO q8h PRN agitation/ [...] Do you have a Durable Power of Machinist [employer] for Healthcare, or Healthcare Proxy Or Guardianship? SELECTIf so, Who? Sharda BurrisDo you have a written Advance Directive? Has Advance DirectiveOther details of discussion: (Who was present, patients description of wishes/goals)Today's plan: Advised patient to discuss wishes with [id number] : AD or surrogate was documented in the medical record. 2024-06-09 Most recent hospital stay(s) or ER visit(s) and precipitating factors: 2024-06-09 Most recent hospital stay(s) or ER visit(s) and precipitating factors: None recently reported in the past six months. 2024-06-09 Open HEDIS Measure ranjan carlson: Reviewed
--- OUTSIDE RECORDS SUMMARY | 2025-02-27 08:49 | XMS_ITS | Clinical Summary ---
Author Organization [facility] Address [address] [place] [address] Phone Care Team Providers Care Belt Polisher Name Role Phone Yoshi Dotson MD Primary Care Provider [phone] Allergies Active Allergy Reactions Criticality Noted Date [...] Medicaid [place] Medicare [place] Care Teams Belt Polisher Relationship Specialty Start Date End Date Yoshi Dotson MD [address] [place] [address] DRIVE [address] [place], [place] PCP - General 04/18/20
== END 2025-02-27 08:47 | disposition home or self-care (01) ==
LOC: HO.LAB 08:46
PROVIDERS: PCP Physician Assistant Medical; Referring Provider Registered Nurse; Visit Provider Physician Assistant Medical
DX: Z79.899 Other long term (current) drug therapy (principal); E03.9 Hypothyroidism, unspecified
CPT/HCPCS: 36415; 80164; 84443